=== PATIENT | female | born 1970 | race Caucasian/White ===

== ENCOUNTER 2016-07-17 18:55 | Emergency (ER) | payer OTHER ==
--- NOTE | 2016-07-17 19:52 | ED ORDER SUMMARY ---
..... Patient: ADI RICO OrderSheet [facility] VisitID: [id number] [address] [place] [address] 46y, F Registration Date/Time: 07/17/2016 ORDER SHEET Weight: 81.6 kg (stated) Allergies: Augmentin, Codeine, Compazine, Darvocet, Inapsine, Phenergan, Reglan, Toradol, Tramadol, Vistril, Zofran GENERAL ORDERS: POC Glucose (19:32 07/17/2016 Lili Cerna) (19:43 TLewis R.N.) MEDICATION ORDERS: Ativan PO 1 mg (HIGH ALERT MEDICATION, NOW) (19:31 07/17/2016 Lili Cerna) (19:51 TLewis R.N.) IV FLUIDS: ORDER SHEET NOTES: [Electronically signed by Armani Martínez Dr. (20:04 07/17/2016)] [Electronically signed by Dang Carpenter (20:14 07/17/2016)] [Electronically locked/signed by Dang Carpenter (20:14 07/17/2016)]
--- NOTE | 2016-07-17 19:52 | ED NURSING NOTES ---
Clinical Report - Nurses [facility] [address] [place] [address] 07/17/2016 18:56 Patient: ADI RICO TRIAGE Triage time 19:00 Jul 17 2016. Acuity: LEVEL 4. Chief Complaint: MIGRAINE HEADACHE. 19:06 07/17/16. Alert. No acute distress. SEPSIS SCREEN: Sepsis Screen. Negative (no infection suspected/documented). ROSE COMA SCORE: [place] Coma Scale: 15- eyes open spontaneously (4); best verbal response- oriented x 4 (5); best motor response- obeys commands (6). --19:06 Dang Carpenter 19:00 07/17/16. BP: 146/91. HR: 108. RR: 18 (regular and unlabored). O2 saturation: 98%. Temp: 98.6 F (oral). Pain level now: 03/14. --19:06 Dang Carpenter. Weight: 81.6 kg stated. Height/Length: 66 inches Per Patient. BMI: 29. --19:05 Dang Carpenter. Medications Ativan Oral 1 mg, 4x a day (PRN migraines). --19:02 Dang Carpenter Docusate Sodium Oral 240 mg, daily (2 bottles from 11-18-15; 12-17-15). --19:02 Dang Carpenter Insulin Regular Human Injection sliding scale 2x/day. Lantus Subcutaneous 20 units , at bedtime. Losartan Potassium Oral 25 mg, daily (2 bottles 11-18-15; 12-17-15). Methadone HCl Oral 125mg daily taken at 0900 . Senna Laxative Oral 1-2 tabs, daily (2 bottles 11-18-15; 12-17-15). Simvastatin Oral 40 mg, daily (1 bottle dated 11-19-15). Vit d 1000 units, daily (3 bottles 11-18; 12-17-15; 01-17-16). --19:02 Dang Carpenter. Medication/allergy information source: the patient. --19:06 Dang Carpenter. Allergies Augmentin. Codeine. Compazine. --19:02 Dang Carpenter Darvocet. Inapsine. Phenergan. (muscles twitch) Reglan. Toradol. Tramadol. Vistril. --19:02 Dang Carpenter Zofran. (headache) --19:02 Dang Carpenter. History Arrived by private vehicle. Historian: patient. Unaccompanied. Primary physician ([facility]). This started About a week. ( Pt having "migraine" with nausea, vomiting, and blurry vision. Gets headaches about every 4 months, today is the same, but it's just not going away. Started dialysis about 3 months ago.). She has had weakness. No nausea, vomiting, numbness, fever or sinus pain. 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 PAST MEDICAL HX: Diabetes mellitus. Hypertension. Headaches. No history of head injury. Immunizations not up to date. SOCIAL HX: Former smoker, end date 06/2016. History of heavy drug use: marijuana. No alcohol use. No recent travel. No known contact with a sick individual. FALL RISK ASSESSMENT: Fall risk assessment completed. No fall risk identified. NUTRITIONAL RISK ASSESSMENT: The nutritional risk assessment revealed no deficiencies. FUNCTIONAL ASSESSMENT: Functional assessment: no impairments noted. LEARNING NEEDS ASSESSMENT: The learning needs assessment revealed no barriers. SKIN INTEGRITY ASSESSMENT: Skin integrity risk assessment completed. No skin integrity risk identified. --19:06 Dang Carpenter. PROBLEMS: Kidney failure. Substance Abuse. Hyperglycemia. Hyperkalemia. Renal Failure. Hematuria. Tension-Type Headache. Chronic Headache. Abscess. Renal Insufficiency. Cellulitis. Atypical Chest Pain. Gastroparesis. Contusion. Fall. Tetanus Status. Headache. Migraine Headache. Gastroesophageal Reflux. Narcotic Withdrawal. LNMP - Last Normal Menstrual Period. UTI - Urinary Tract Infection. Vomiting. Abdominal Pain. Diabetes Mellitus. Hypertension. --19:03 Dang Carpenter Narcotic Withdrawal [RuleOut]. --19:03 Dang Carpenter. ADDITIONAL SURGERIES: Ankle. Incision and drainage of abscess. Oophorectomy. Shoulder Surgery. Sinus Surgery. --19:03 Dang Carpenter. Assessment The patient states feels the same. --19:06 Dang Carpenter. Interventions ID band on patient. --19:06 Dang Carpenter. PHYSICAL ASSESSMENT 19:07/17/16. Ambulatory to room. GENERAL / NEURO / PSYCH: Alert. Oriented X 4. Appears in no acute distress. Speech within normal limits. HEENT: No facial asymmetry noted. Pupils equal, round and reactive to light. RESPIRATORY: Respirations not labored. CVS: Capillary refill less than 2 seconds. GI / : Abdomen soft and nontender. SKIN: Skin is warm and dry. --19: Dang Carpenter 19:07/17/16. HEENT: Photophobia present. --19: Dang Carpenter. NURSING PROGRESS NOTES :07/17/16. The plan of care for this patient has been created. Head of bed elevated. Reassurance given. Lights dimmed. Two patient identifiers checked. Call light placed in reach. Bed placed in lowest position. Brakes of bed on. Patient ready for evaluation- chart flagged and ED physician and PA notified. --19:06 Dang Carpenter Finger stick glucose: greater than 500; ordered; performed by nurse; result shown to the ED physician. --19:44 Grey Sandy R.N. ( Pt refused the lorazepam 1mg. Pt stated she wanted it in a prescription. She drove herself here and does not want to take it now. Pt was told about the possibility of needing an IV, fluids and DKA. Pt stated she does not care, "I will go home and fix myself." Pt was very tearful and upset. MD was notified about the situation and the blood sugar over 500.). --19:49 Grey Sandy R.N. 19:50 07/17/2016 Ativan PO 1 mg (HIGH ALERT MEDICATION, NOW) was refused by patient because of concern over the side effects and pt does not want it because she drove herself here. told. Grey Sandy --19:51 Grey Sandy R.N. DISPOSITION / DISCHARGE 20:14 07/17/16. Condition at departure: unchanged. The patient eloped and the patient left prior to discharge education being provided. The patient left the Emergency Department without completion of treatment; patient was unaccompanied. The patient appears to be alert, oriented x4, coherent and in no acute distress. Unable to locate patient. The patient stated is leaving the ED due to personal reasons. Notified the ED physician and charge nurse of patient departure. Patient left without signing form prior to leaving. She left the Emergency Department ambulatory and via private vehicle. --20:14 Dang Carpenter 20:12 07/17/16. BP: unable to obtain due to patient not present. HR: unable to obtain due to patient not present. RR: unable to obtain due to patient not present. O2 saturation: unable to obtain due to patient not present. Temp: unable to obtain due to patient not present. Pain level now unable to obtain due to patient not present. --20:14 Dang Carpenter 20:14 07/17/16. Departure time: 20:14 Jul 17 2016. --20:14 Dang Carpenter. Locked/Released at 07/17/2016 20:14 by Dang Carpenter,
--- NOTE | 2016-07-17 19:52 | ED ORDER SUMMARY ---
..... Patient: ADI RICO OrderSheet [facility] VisitID: [id number] [address] [place] [address] 46y, F Registration Date/Time: 07/17/2016 ORDER SHEET Weight: 81.6 kg (stated) Allergies: Augmentin, Codeine, Compazine, Darvocet, Inapsine, Phenergan, Reglan, Toradol, Tramadol, Vistril, Zofran GENERAL ORDERS: POC Glucose (19:32 07/17/2016 Lili Cerna) (19:43 TLewis R.N.) MEDICATION ORDERS: Ativan PO 1 mg (HIGH ALERT MEDICATION, NOW) (19:31 07/17/2016 Lili Cerna) (19:51 TLewis R.N.) IV FLUIDS: ORDER SHEET NOTES: [Electronically signed by Armani Martínez Dr. (20:04 07/17/2016)] [Electronically signed by Dang Carpenter (20:14 07/17/2016)] [Electronically locked/signed by Dang Carpenter (20:14 07/17/2016)]
--- NOTE | 2016-07-17 20:15 | ED MED RECONCILIATION SUMMARY ---
Patient: ADI RICO Medication Reconciliation Report [facility] VisitID: [id number] [address] [address] 46y, F Registration Date/Time: 07/17/2016 Weight: 81.6 kg Height/Length: 66 in. BMI: 29.0 ALLERGIES: Augmentin, Codeine, Compazine, Darvocet, Inapsine, Phenergan, Reglan, Toradol, Tramadol, Vistril, Zofran The patient's Home Medications are listed below: THE FOLLOWING MEDICATIONS NEED TO BE RECONCILED: Ativan Oral 1 mg, 4x a day, PRN migraines Docusate Sodium Oral 240 mg, daily, 2 bottles from 11-18-15; 12-17-15 Insulin Regular Human Injection sliding scale 2x/day Lantus Subcutaneous 20 units , at bedtime Losartan Potassium Oral 25 mg, daily, 2 bottles 11-18-15; 12-17-15 Methadone HCl Oral 125mg daily taken at 0900 Senna Laxative Oral 1-2 tabs, daily, 2 bottles 11-18-15; 12-17-15 Simvastatin Oral 40 mg, daily, 1 bottle dated 11-19-15 Vit d 1000 units, daily, 3 bottles 11-18; 12-17-15; 01-17-16 The source(s) of the original Home Medication information: patient The following Medications were given to the patient in the Emergency Department: None. The following Medications were prescribed to the patient: None.
--- NOTE | 2016-07-17 20:15 | ED MAR SUMMARY ---
..... Medication Administration Record [facility] [address] [place], [place] [id number] Patient: ADI RICO Visit ID: [id number] 46y, F Weight: 81.6 kg Height/Length: 66 in BMI: 29 ALLERGIES: Zofran, Augmentin, Codeine, Compazine, Darvocet, Inapsine, Phenergan, Reglan, Toradol, Tramadol, Vistril
--- NOTE | 2016-07-17 20:15 | ED MAR SUMMARY ---
..... Medication Administration Record [facility] [address] [place], [place] [id number] Patient: ADI RICO Visit ID: [id number] 46y, F Weight: 81.6 kg Height/Length: 66 in BMI: 29 ALLERGIES: Zofran, Augmentin, Codeine, Compazine, Darvocet, Inapsine, Phenergan, Reglan, Toradol, Tramadol, Vistril
--- NOTE | 2016-07-17 20:15 | ED MED RECONCILIATION SUMMARY ---
Patient: ADI RICO Medication Reconciliation Report [facility] VisitID: [id number] [address] [place] [address] 46y, F Registration Date/Time: 07/17/2016 Weight: 81.6 kg Height/Length: 66 in. BMI: 29.0 ALLERGIES: Augmentin, Codeine, Compazine, Darvocet, Inapsine, Phenergan, Reglan, Toradol, Tramadol, Vistril, Zofran The patient's Home Medications are listed below: THE FOLLOWING MEDICATIONS NEED TO BE RECONCILED: Ativan Oral 1 mg, 4x a day, PRN migraines Docusate Sodium Oral 240 mg, daily, 2 bottles from 11-18-15; 12-17-15 Insulin Regular Human Injection sliding scale 2x/day Lantus Subcutaneous 20 units , at bedtime Losartan Potassium Oral 25 mg, daily, 2 bottles 11-18-15; 12-17-15 Methadone HCl Oral 125mg daily taken at 0900 Senna Laxative Oral 1-2 tabs, daily, 2 bottles 11-18-15; 12-17-15 Simvastatin Oral 40 mg, daily, 1 bottle dated 11-19-15 Vit d 1000 units, daily, 3 bottles 11-18; 12-17-15; 01-17-16 The source(s) of the original Home Medication information: patient The following Medications were given to the patient in the Emergency Department: None. The following Medications were prescribed to the patient: None.
--- NOTE | 2016-07-17 20:15 | ED DISCHARGE INSTRUCTIONS ---
Patient: ADI RICO General Instructions [facility] VisitID: [id number] [place] [address] 46y, F Registration Date/Time: 07/17/2016 Acute headache. Severe hyperglycemia (Acute). ADDITIONAL INFORMATION Headache [Unspecified] The cause of your headache today is not clear, but it does not appear to be the sign of any serious illness. Under stress, some people tense the muscles of their shoulder, neck and scalp without knowing it. If this condition lasts long enough, a TENSION HEADACHE can occur. A MIGRAINE HEADACHE is caused by changes in blood flow to the brain. A migraine attack may be triggered by emotional stress, hormone changes during the menstrual cycle, oral contraceptives, alcohol use, certain foods containing tyramine, eye strain, weather changes, missing meals, lack of sleep or oversleeping. Other causes of headache include a viral illness with high fever, head injury with concussion, sinus, ear or throat infection, dental pain and TMJ (jaw joint) pain. More serious but less common causes of headache include stroke, brain hemorrhage, brain tumor, meningitis and encephalitis. Home Care: If you were given pain medicine for this headache, do not drive yourself home. Arrange for a ride, instead. When you get home, try to sleep. You should feel much better when you wake up. Apply heat to the back of your neck to relieve neck muscle spasm. Migraine headaches may respond best to an ice pack on the forehead or at the base of the skull. If you are having nausea or vomiting, follow a light diet until your headache is relieved. If you have a migraine type headache, use sunglasses when in the daylight or around bright indoor lighting until symptoms improve. Bright glaring light can worsen this kind of headache. Follow Up with your doctor if the headache is not better within the next 24 hours. If you have frequent headaches you should discuss a treatment plan with your primary care doctor. By being aware of the earliest signs of headache, and starting treatment right away, you may be able to stop the pain yourself. Get Prompt Medical Attention if any of the following occur: Worsening of your head pain or no improvement within 24 hours Repeated vomiting (unable to keep liquids down) Fever of 100.4F (38C) or higher, or as directed by your healthcare provider Stiff neck Extreme drowsiness, confusion or fainting Dizziness, vertigo (dizziness with spinning sensation) Weakness of an arm or leg or one side of the face Difficulty with speech or vision Diabetes with High Blood Sugar You have been treated for high blood sugar (hyperglycemia). This may be becauseof an infection or other illness;eating too many sweets or starches ; not taking enough insulin. Home care High blood sugar may cause symptoms that you can learn to recognize, such as these: If you feel like your blood sugar may be too high, measure it using a blood or urine test. If it is above your usual range, use the "sliding scale"rRegular insulin dose your doctor gave you to correct this. If no "sliding scale" orders were given, contact your doctor for further advice. If your blood sugar is over 300, and you can't reach your doctor, go to the hospital emergency room. Monitor and write down your blood sugars - and insulin dose, if you take insulin - atleast twice a day. Do this before breakfast and before dinner. Do this for the next 3 to 5 days. Follow-up care Follow up with your health care provderduring the next week to review your blood sugar records. You will find out if you need to adjust your dose of insulin or other medicine for blood sugar. When to seek medical care Get prompt medical attention if either of these occur: High blood sugar.Symptoms are frequent urination, feeling dizzy, thirst, headache, nausea or vomiting, abdominal pain, and drowsiness or loss of consciousness. Low blood sugar. Symptoms are fatigue, headache, shakes, excess sweating, hunger, anxiety, reduced vision, drowsiness, weakness, confusion or loss of consciousness, and seizure. You have been given the following additional information: Headache, Unspecified Diabetic Hyperglycemia (Electronically signed by Armani Martínez Dr. 07/17/2016 20:04)
--- NOTE | 2016-07-17 20:15 | ED CLINICAL REPORT ---
Clinical Report - Physicians/Mid Levels [facility] [address] [place] [address] 07/17/2016 18:56 Patient: ADI RICO Arrived- By private vehicle. Historian- patient. HISTORY OF PRESENT ILLNESS Is still present (worsened last night). Chief Complaint: HEADACHE. This started started 4 - 5 days ago. It was gradual in onset and has been constant but is not gone now. Patient was last known well (4 - 5 days ago). Onset during rest. It is described as similar to previous headaches. No neck pain. Not located in the facial region. At its maximum, severity described as severe. When seen in the E.D., severity described as severe. No preceding symptoms, blurred vision, photophobia, numbness or weakness. (reports her blood sugar "crashed" last night and had worsening of her headache. Did not come in. States she ate to get it back up.). Similar symptoms previously: Recent medical care: Not recently seen/assessed. REVIEW OF SYSTEMS No fever. She has had skin rash. All systems otherwise negative, except as recorded above. PAST HISTORY See nurses notes. Medications: Insulin Regular Human Injection sliding scale 2x/day. Lantus Subcutaneous 20 units , at bedtime. Losartan Potassium Oral 25 mg, daily (2 bottles 11-18-15; 12-17-15). Methadone HCl Oral 125mg daily taken at 0900 . Senna Laxative Oral 1-2 tabs, daily (2 bottles 11-18-15; 12-17-15). Simvastatin Oral 40 mg, daily (1 bottle dated 11-19-15). Vit d 1000 units, daily (3 bottles 11-18; 12-17-15; 01-17-16). Docusate Sodium Oral 240 mg, daily (2 bottles from 11-18-15; 12-17-15). Ativan Oral 1 mg, 4x a day (PRN migraines). Allergies: Augmentin. Codeine. Compazine. Darvocet. Inapsine. Phenergan. (muscles twitch) Reglan. Toradol. Tramadol. Vistril. Zofran. (headache). SOCIAL HISTORY Former smoker. History of drug use: marijuana. No alcohol use. Is a local resident. ADDITIONAL NOTES The nursing notes have been reviewed. PHYSICAL EXAM Vital Signs: 07/17/2016 19:00 BP: 146/91. HR: 108. RR: 18. O2 saturation: 98%. Temp: 98.6 F. Pain level now: 10/10. Blood pressure normal. Oxygen saturation normal. Appearance: Alert. No acute distress. Eyes: Pupils equal, round and reactive to light. Eyes normal inspection. (No papilledema. Normal appearing retinal vasculature.). ENT: Ears normal. Nose normal. Pharynx normal. Neck: Normal inspection. Neck supple. No meningeal signs. CVS: Normal heart rate and rhythm. Heart sounds normal. Pulses normal. Respiratory: No respiratory distress. Breath sounds normal. Abdomen: Soft and nontender. No organomegaly. Back: Normal inspection. Skin: Skin warm and dry. Normal skin color. No rash. Normal skin turgor. Extremities: Extremities exhibit normal ROM. No lower extremity edema. Neuro: Oriented X 3. Alert. Mood/affect normal. Speech normal. Cranial nerves normal (as tested). No cerebellar findings. No motor deficit. No sensory deficit. Reflexes normal. (normal gait. Negative Kernig's sign. Negative Brudzinski's). PROGRESS AND PROCEDURES Course of Care: the patient is a pleasant 46 old female with past medical history significant for diabetes and chronic kidney disease presented for reaction a headache. Patient has multiple medical allergies admitted difficult for the trailer headache be treated here in the emergency department. Patient also first is not full-scale narcotics. I discussion about possible caty emergency department. Would like to help her in regards to this. Patient with history of diabetes. Accu-Chek also be ordered. Ativan also will be Provided for the headache as she "can't take any other medications. " symptoms of her headache and been going for the past several days. Do not reach maximum intensity within 1 hour of onset. Patient with similar headaches in the past. No signs or nuchal rigidity. Negative Kernig's sign. Negative Brudzinski's. Do not the patient has meningitis or subarachnoid hemorrhage. Do not feel lumbar puncture is indicated at this time or further workup for these entities needed. Medications are been provided by the nurse, patient refused Ativan. Patient states that she needs to be able to drive home. Patient reports that she has a child at home. I discussion with patient in regards to her headache. Would like to help her as much as can however the patient reports that she does not want the Ativan right now. Patient reports that she would like a prescription. I discussion with patient in regards to her symptoms here in the emergency department and at this time do not feel comfortable providing patient with a prescription. Had offered patient other alternatives for example obtaining a ride from a third-republican. The patient reports that she is unable to do this and does not elaborate why. I also discussed with the patient in regards to her elevated blood sugar levels here in the hospital and the possibility of her headache being due to her elevated blood sugar. Patient reports that she can self medicate at home and does not want any further treatment or workup. Had a long discussion with patient in regards to what is occurring here in the emergency department and the possible treatments available. Patient asked about getting medications to go home with. Unfortunately because a 24-hour pharmacy has opened up recently, we are unable to dispense medications for home use from the emergency department. Despite this, the patient was not agreeable to the proposed treatment. Patient stated "I will just go find heroin. "Had a long discussion about narcotics and how the emergency department was not a substitute for a drug dealer. Patient told that she is welcome to return at any point in time for treatment of her elevated blood sugar and her headache. Patient understands the risks and benefits of leaving including permanent disability and . Patient is alert and oriented. the patient is go oriented and linear thought process. Patient is able to make medical decisions for herself. I'm unable to force the patient to stay here in the hospital against her will. Patient expressed understanding of the risks and is not a danger to self or others. Patient without any hallucinations or delusions. Discussed the patient workup, diagnosis, home care, follow-up, and return precautions. All questions answered. The patient expressed understanding of these instructions and was agreeable to them. CLINICAL IMPRESSION Acute headache. Severe hyperglycemia (Acute). (Electronically signed by Armani Martínez Dr. 07/17/2016 20:04)
== END 2016-07-17 20:12 | disposition home or self-care (01) ==
LOC: ED SRH 18:55
DX: R51 Headache (principal); E11.65 Type 2 diabetes mellitus with hyperglycemia; K21.9 Gastro-esophageal reflux disease without esophagitis; I10 Essential (primary) hypertension; Z79.899 Other long term (current) drug therapy; Z79.4 Long term (current) use of insulin; Z88.8 Allergy status to other drugs, medicaments and biological substances; Z88.5 Allergy status to narcotic agent; Z87.891 Personal history of nicotine dependence
CPT/HCPCS: 90098

== ENCOUNTER 2016-08-05 02:43 | Emergency (ER) | payer OTHER ==
--- NOTE | 2016-08-05 06:29 | DIAGNOSTIC IMAGING REPORT ---
PROCEDURE: XR CHEST 1 VIEW INDICATION: SHORTNESS OF BREATH, initial encounter TECHNIQUE: Portable AP view 03:45 a.m. COMPARISON: Chest x-ray 07/10/2013 FINDINGS: Minor right basilar infiltrate. Large bore right IJ central line in satisfactory position. Previously noted right PICC line has been removed. Heart and mediastinum are normal. Thorax is normal. IMPRESSION: 1. Minor right basilar infiltrate which may represent pneumonia or atelectasis.
--- NOTE | 2016-08-05 08:05 | ED ORDER SUMMARY ---
..... Patient: ADI RICO OrderSheet [facility] VisitID: [id number] [place] [address] 46y, F Registration Date/Time: 08/05/2016 ORDER SHEET Weight: 75 kg (stated) Allergies: Augmentin, Codeine, Compazine, Darvocet, Inapsine, Phenergan, Reglan, Toradol, Tramadol, Vistril, Zofran GENERAL ORDERS: Knitting Inspector (Continuous) (03:28 08/05/2016 Ashley DALAL) (Ack 3:36 ALawrence ER Tech1) (3:36 ALawrence ER Tech1) BNP Urgent (:08/05/2016 Ashley DALAL) (3:35 ALawrence ER Tech1) Cardiac Panel Stat (:08/05/2016 Ashley DALAL) (3:35 ALawrence ER Tech1) Pulse oximeter (:28 08/05/2016 Ashley DALAL) (Ack 3:36 ALawrence ER Tech1) (3:36 ALawrence ER Tech1) EKG - ER Stat (:28 08/05/2016 Ashley DALAL) (Ack 3:36 ALawrence ER Tech1) (3:36 ALawrence ER Tech1) Chest 1V Urgent (03:40 08/05/2016 Ashley DALAL) (Ack 3:41 ALawrence ER Tech1) (3:52 Bakari) MEDICATION ORDERS: IV FLUIDS: IV Saline Lock (:08/05/2016 Ashley DALAL) (3:37 Guicho R.NTre) ORDER SHEET NOTES: [Electronically signed by Daiana Burrows R.N. (09:32 08/05/2016)] [Electronically signed by Wilson Dang MD (23:24 08/07/2016)] [Electronically locked/signed by Daiana Burrows R.N. (09:32 08/05/2016)]
--- NOTE | 2016-08-05 08:05 | ED NURSING NOTES ---
Clinical Report - Nurses [facility] [address] [place] [address] 08/05/2016 2:46 Patient: ADI RICO TRIAGE Triage time 0249. Acuity: LEVEL 3. Chief Complaint: SHORTNESS OF BREATH and DIFFICULTY BREATHING. --02:56 Caio Santiago R.N. 02:49 08/05/16. BP: 145/92. HR: 111. RR: 22. O2 saturation: 96%. Temp: 98 F. --02:56 Caio Santiago R.N. Weight: 75 kg stated. Height/Length: 66 inches Per Patient. BMI: 26.7. --02:53 Caio Santiago R.N. Medications Ativan Oral 1 mg, 4x a day (PRN migraines). Docusate Sodium Oral 240 mg, daily (2 bottles from 11-18-15; 12-17-15). Insulin Regular Human Injection sliding scale 2x/day. Lantus Subcutaneous 20 units , at bedtime. Losartan Potassium Oral 25 mg, daily (2 bottles 11-18-15; 12-17-15). Methadone HCl Oral 125mg daily taken at 0900 . Senna Laxative Oral 1-2 tabs, daily (2 bottles 11-18-15; 12-17-15). Simvastatin Oral 40 mg, daily (1 bottle dated 11-19-15). Vit d 1000 units, daily (3 bottles 11-18; 12-17-15; 01-17-16). --02:51 Caio Santiago R.N. ALPRAZolam Oral. --02:52 Caio Santiago R.N. Allergies Augmentin. Codeine. Compazine. Darvocet. Inapsine. Phenergan. (muscles twitch) Reglan. Toradol. Tramadol. Vistril. Zofran. (headache) --02:51 Caio Santiago R.N. History Arrived by EMS. Historian: patient. Unaccompanied. This started just prior to arrival. 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 SOCIAL HX: History of heavy drug use: marijuana. No alcohol use. FALL RISK ASSESSMENT: Fall risk assessment completed. No fall risk identified. NUTRITIONAL RISK ASSESSMENT: The nutritional risk assessment revealed no deficiencies. FUNCTIONAL ASSESSMENT: Functional assessment: no impairments noted. LEARNING NEEDS ASSESSMENT: The learning needs assessment revealed no barriers. SKIN INTEGRITY ASSESSMENT: Skin integrity risk assessment completed. No skin integrity risk identified. --02:56 Caio Santiago R.N. PAST MEDICAL HX: ( pt has dialysis T,Th,Sat. pt missed th appt r/t feeling sick. pt has vas/cath right chest.). --02:58 Caio Santiago R.N. PROBLEMS: Kidney failure. Substance Abuse. Hyperglycemia. Hyperkalemia. Renal Failure. Hematuria. Tension-Type Headache. Chronic Headache. Abscess. Renal Insufficiency. Cellulitis. Atypical Chest Pain. Gastroparesis. Contusion. Fall. Tetanus Status. Headache. Migraine Headache. Immunizations. Gastroesophageal Reflux. Narcotic Withdrawal. LNMP - Last Normal Menstrual Period. UTI - Urinary Tract Infection. Vomiting. Abdominal Pain. Diabetes Mellitus. Hypertension. --02:51 Caio Santiago R.N. Narcotic Withdrawal [RuleOut]. --02:51 Caio Santiago R.N. ADDITIONAL SURGERIES: Ankle. Incision and drainage of abscess. Oophorectomy. Shoulder Surgery. Sinus Surgery. --02:52 Caio Santiago R.N. Interventions ID band on patient. --02:56 Caio Santiago R.N. PHYSICAL ASSESSMENT GENERAL / NEURO / PSYCH: Alert. Oriented X 4. HEENT: Mucous membranes are pink. CVS: Normal sinus rhythm noted. Capillary refill less than 2 seconds. SKIN: Skin is warm and dry. Normal skin turgor. --02:57 Caio Santiago R.N. GENERAL / NEURO / PSYCH: Appears anxious. --02:57 Caio Santiago R.N. RESPIRATORY: Mild respiratory distress. The patient can speak in full sentences. --02:57 Caio Santiago R.N. NURSING PROGRESS NOTES Monitoring of patient in place. Patient gowned. Head of bed elevated. Patient identifiers checked. Call light placed in reach. Bed placed in lowest position. Brakes of bed on. --02:58 Caio Santiago R.N. 03:37 08/05/2016 Site #1 started via IV in the right forearm with an 20g angiocath, with aseptic technique and good blood return; two attempts. Blood drawn. Labeled in the presence of the patient and sent to the lab. Saline lock flushed with saline. --03:37 Caio Santiago R.N. EKG time: (03:47 03:47 Aug 05 2016). EKG was performed by a tech and shown to the ED physician. --03:48 Riki Escobar 07:24 08/05/16. Care transferred and report received (Caio). ( Patient doing well, requests to go home.). --07:24 Elham Sanchez R.N. 07:22 08/05/16. BP: 129/81. HR: 92. RR: 18. O2 saturation: 97% on room air. Temp: 98.2 F. Pain level now: 0/10. --07:24 Elham Sanchez R.N. DISPOSITION / DISCHARGE Departure time: 823. Condition at departure: improved. ( Pt aware she has a dialysis appointment at 4:30pm). No learning barriers present. Discharge instructions provided and reviewed with the patient and family. Treatments reviewed. Reviewed referral to a dye mixer and family practice for followup. Verbalized understanding. Written instructions provided. The patient was discharged home. She left the Emergency Department ambulatory and via private vehicle. Family member driving. --09:31 Daiana Burrows R.N. 09:27 08/05/16. BP: 156/93. HR: 97. RR: 20. O2 saturation: 98%. Temp: 98 F. Pain level now: 0/10. --09:31 Daiana Burrows R.N. Locked/Released at 08/05/2016 9:32 by Daiana Burrows R.N.
--- NOTE | 2016-08-05 08:05 | ED NURSING NOTES ---
Clinical Report - Nurses [facility] [address] [place] [address] 08/05/2016 2:46 Patient: ADI RICO TRIAGE Triage time 0249. Acuity: LEVEL 3. Chief Complaint: SHORTNESS OF BREATH and DIFFICULTY BREATHING. --02:56 Caio Santiago R.N. 02:49 08/05/16. BP: 145/92. HR: 111. RR: 22. O2 saturation: 96%. Temp: 98 F. --02:56 Caio Santiago R.N. Weight: 75 kg stated. Height/Length: 66 inches Per Patient. BMI: 26.7. --02:53 Caio Santiago R.N. Medications Ativan Oral 1 mg, 4x a day (PRN migraines). Docusate Sodium Oral 240 mg, daily (2 bottles from 11-18-15; 12-17-15). Insulin Regular Human Injection sliding scale 2x/day. Lantus Subcutaneous 20 units , at bedtime. Losartan Potassium Oral 25 mg, daily (2 bottles 11-18-15; 12-17-15). Methadone HCl Oral 125mg daily taken at 0900 . Senna Laxative Oral 1-2 tabs, daily (2 bottles 11-18-15; 12-17-15). Simvastatin Oral 40 mg, daily (1 bottle dated 11-19-15). Vit d 1000 units, daily (3 bottles 11-18; 12-17-15; 01-17-16). --02:51 Caio Santiago R.N. ALPRAZolam Oral. --02:52 Caio Santiago R.N. Allergies Augmentin. Codeine. Compazine. Darvocet. Inapsine. Phenergan. (muscles twitch) Reglan. Toradol. Tramadol. Vistril. Zofran. (headache) --02:51 Caio Santiago R.N. History Arrived by EMS. Historian: patient. Unaccompanied. This started just prior to arrival. 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 SOCIAL HX: History of heavy drug use: marijuana. No alcohol use. FALL RISK ASSESSMENT: Fall risk assessment completed. No fall risk identified. NUTRITIONAL RISK ASSESSMENT: The nutritional risk assessment revealed no deficiencies. FUNCTIONAL ASSESSMENT: Functional assessment: no impairments noted. LEARNING NEEDS ASSESSMENT: The learning needs assessment revealed no barriers. SKIN INTEGRITY ASSESSMENT: Skin integrity risk assessment completed. No skin integrity risk identified. --02:56 Caio Santiago R.N. PAST MEDICAL HX: ( pt has dialysis T,Th,Sat. pt missed th appt r/t feeling sick. pt has vas/cath right chest.). --02:58 Caio Santiago R.N. PROBLEMS: Kidney failure. Substance Abuse. Hyperglycemia. Hyperkalemia. Renal Failure. Hematuria. Tension-Type Headache. Chronic Headache. Abscess. Renal Insufficiency. Cellulitis. Atypical Chest Pain. Gastroparesis. Contusion. Fall. Tetanus Status. Headache. Migraine Headache. Immunizations. Gastroesophageal Reflux. Narcotic Withdrawal. LNMP - Last Normal Menstrual Period. UTI - Urinary Tract Infection. Vomiting. Abdominal Pain. Diabetes Mellitus. Hypertension. --02:51 Caio Santiago R.N. Narcotic Withdrawal [RuleOut]. --02:51 Caio Santiago R.N. ADDITIONAL SURGERIES: Ankle. Incision and drainage of abscess. Oophorectomy. Shoulder Surgery. Sinus Surgery. --02:52 Caio Santiago R.N. Interventions ID band on patient. --02:56 Caio Santiago R.N. PHYSICAL ASSESSMENT GENERAL / NEURO / PSYCH: Alert. Oriented X 4. HEENT: Mucous membranes are pink. CVS: Normal sinus rhythm noted. Capillary refill less than 2 seconds. SKIN: Skin is warm and dry. Normal skin turgor. --02:57 Caio Santiago R.N. GENERAL / NEURO / PSYCH: Appears anxious. --02:57 Caio Santiago R.N. RESPIRATORY: Mild respiratory distress. The patient can speak in full sentences. --02:57 Caio Santiago R.N. NURSING PROGRESS NOTES Monitoring of patient in place. Patient gowned. Head of bed elevated. Patient identifiers checked. Call light placed in reach. Bed placed in lowest position. Brakes of bed on. --02:58 Caio Santiago R.N. 03:37 08/05/2016 Site #1 started via IV in the right forearm with an 20g angiocath, with aseptic technique and good blood return; two attempts. Blood drawn. Labeled in the presence of the patient and sent to the lab. Saline lock flushed with saline. --03:37 Caio Santiago R.N. EKG time: (03:47 03:47 Aug 05 2016). EKG was performed by a tech and shown to the ED physician. --03:48 Riki Escobar 07:24 08/05/16. Care transferred and report received (Caio). ( Patient doing well, requests to go home.). --07:24 Elham Sanchez R.N. 07:22 08/05/16. BP: 129/81. HR: 92. RR: 18. O2 saturation: 97% on room air. Temp: 98.2 F. Pain level now: 0/10. --07:24 Elham Sanchez R.N. DISPOSITION / DISCHARGE Departure time: 823. Condition at departure: improved. ( Pt aware she has a dialysis appointment at 4:30pm). No learning barriers present. Discharge instructions provided and reviewed with the patient and family. Treatments reviewed. Reviewed referral to a clinical data management director and family practice for followup. Verbalized understanding. Written instructions provided. The patient was discharged home. She left the Emergency Department ambulatory and via private vehicle. Family member driving. --09:31 Daiana Burrows R.N. 09:27 08/05/16. BP: 156/93. HR: 97. RR: 20. O2 saturation: 98%. Temp: 98 F. Pain level now: 0/10. --09:31 Daiana Burrows R.N. Locked/Released at 08/05/2016 9:32 by Daiana Burrows R.N.
--- NOTE | 2016-08-05 08:05 | ED CLINICAL REPORT ---
Clinical Report - Physicians/Mid Levels [facility] [address] [place] [address] 08/05/2016 2:46 [id number] Time Seen: 03:21 Aug 05 2016. Arrived- By private vehicle. Historian- patient. CPT: ER phys charges level 4 (#[id number]). HISTORY OF PRESENT ILLNESS Chief Complaint: DYSPNEA. (( pt has dialysis T,Th,Sat. pt missed th appt r/t feeling sick. pt has vas/cath right chest.).). Is still present. The dyspnea is described as moderate. (Nothing). No cough, sputum production, fever, sweating episodes or wheezing. No chills, chest pain or discomfort, calf pain or foot swelling. She has had dyspnea on exertion and anxiety. Similar symptoms previously: Diagnosis: (Renal failure). Recent medical care: Not recently seen/assessed. REVIEW OF SYSTEMS No sore throat, nasal discharge, sinus drainage, nausea or vomiting. No abdominal pain, diarrhea, black stools, fainting episodes or difficulty with urination. No skin rash or enlarged lymph nodes. All systems otherwise negative, except as recorded above. PAST HISTORY Substance Abuse. Hyperglycemia. Hyperkalemia. Renal Failure. Hematuria. Tension-Type Headache. Abscess. Cellulitis. Atypical Chest Pain. Gastroparesis. Contusion. Fall. Migraine Headache. Immunizations. Gastroesophageal Reflux. Narcotic Withdrawal. LNMP - Last Normal Menstrual Period. UTI - Urinary Tract Infection. Vomiting. Abdominal Pain. Diabetes Mellitus. Hypertension. ADDITIONAL SURGERIES: Ankle. Incision and drainage of abscess. Oophorectomy. Shoulder Surgery. Sinus Surgery. SOCIAL HISTORY History of heavy drug use: marijuana. ADDITIONAL NOTES The nursing notes have been reviewed. PHYSICAL EXAM Vital Signs: 08/05/2016 02:49 BP: 145/92. HR: 111. RR: 22. O2 saturation: 96%. Temp: 98 F. Appearance: Alert. Anxious. Patient in moderate distress. Eyes: Eyes normal inspection. ENT: Pharynx normal. Neck: Normal inspection. No jugular venous distention. Neck supple. CVS: Normal heart rate and rhythm. Heart sounds normal. Pulses normal. Respiratory: No respiratory distress. Breath sounds normal. No wheezes or rales. Abdomen: Soft and nontender. Back: Normal inspection. Skin: Skin warm. Normal skin color. No rash. Extremities: Extremities exhibit normal ROM. No calf tenderness. No lower extremity edema. Neuro: Oriented X 3. No motor deficit. No sensory deficit. Reflexes normal. LABS, X-RAYS, AND EKG EKG: Normal P waves. Normal MADELYN. Poor R wave progression. Normal axis. Normal ST and T waves. Prior EKG unavailable. The study has been interpreted contemporaneously. The study has been independently viewed by me. The EKG appears to be a good tracing. Chest X-ray: Vascular congestion present. No cardiomegaly, CHF or pulmonary edema. Views: AP (portable). Technique: good. The X-rays were independently viewed by me and interpreted contemporaneously by me. Laboratory Tests: CBC w Diff: (TO: 08/05/2016 03:18) ( [facility] [place]:35[place] Final results Test Result Flag Units (Reference) WHITE BLOOD COUNT 12.5 H K/uL (4.5-11.5) RED BLOOD COUNT 3.71 L M/uL (4.00-5.20) HEMOGLOBIN 11.4 L gm/dL (12.0-16.0) HEMATOCRIT 34.7 L % (36.0-46.0) MEAN CELL VOLUME 94 fL (80-100) MEAN CORPUSCULAR HGB 31 pg (26-34) MEAN CORPUSCULAR HGB CONC 33 g/dL (31-37) RED CELL DISTRIBUTION WIDTH 17.2 H % (11.6-14.8) PLATELET COUNT 317 K/uL (150-400) NEUTROPHIL % 67.5 % (50-75) LYMPH % 20.8 L % (25-40) MONO % 4.6 % (3-14) EOSINOPHIL % 6.7 H % (0-4) BASOPHIL % 0.4 % (0-2) BNP: (TO: 08/05/2016 03:18) ( [facility] [place]/05[place] 04:03) Final results Test Result Flag Units (Reference) B-TYPE NATRIURETIC PEPTIDE 657 H pg/ml (5-100) CHEM 13 PANEL: (TO: 08/05/2016 03:18) ( [place]cv[place] 08/05/2016 04:17) Final results Test Result Flag Units (Reference) GLUCOSE 306 H mg/dL (70-110) BUN 55 H mg/dL (7-18) CREATININE 10.0 *H mg/dL (0.6-1.3) CRITICAL RESULTS CALLEDCalled to REMIE 08/05/16 0416Were 2 patient identifiers used? YWas the result read back? Y Estimated GFR 4.61 mL/min Estimated GFR- 5.59 mL/min Note: Persistent reduction over 3 months in eGFR<60 mL/min/1.73 m2 defines CKD. Patients with eGFR values>=60 mL/min/1.73 m2 may also have CKD if evidence ofpersistent proteinuria. Additional information may be foundat www.kidney.org. SODIUM 135 L mmol/L (136-145) POTASSIUM 4.8 mmol/L (3.5-5.1) CHLORIDE 97 L mmol/L (98-107) CARBON DIOXIDE 19 L mmol/L (21-32) CALCIUM 9.9 mg/dL (8.5-10.1) TOTAL PROTEIN 8.3 H g/dL (6.4-8.2) ALBUMIN 3.3 g/dL (3.3-5.0) BILIRUBIN, TOTAL 0.6 mg/dL (0.0-1.0) ALKALINE PHOSPHATASE 115 U/L (46-116) AST (SGOT) 31 U/L (15-37) ALT (SGPT) 32 U/L (12-78) MAGNESIUM 2.7 H mg/dL (1.8-2.4) CPK 534 H U/L (24-260) TROPONIN I 0.06 ng/mL (0.00-1.5) TROPONIN REFERENCE RANGE:<0.1 NEGATIVE0.1-1.5 INDETERMINANT>1.5 POSITIVE CK-MB 6.4 H ng/mL (0.5-3.2) %CKMB 1.2 % (0.0-4.0) . PROGRESS AND PROCEDURES Course of Care: 07:53 08/05/16. Pt has remained stable in no distress. Sleeping sitting upright. Will find bed at dialysis center this am and transfer her over there. No other acute problems at this time. 08:05 08/05/16. Talked to dialysis center and the soonest spot is 1630. Pt feels safe sitting up and will be with daughter until the appointment. Patient/family counseled. Disposition: Discharged. Condition: stable and improved. CLINICAL IMPRESSION Anxiety reaction with hyperventilation. Fluid long due to missed dialysis. INSTRUCTIONS (Sit upright until dialysis at 1630 today,.). Warnings: Further evaluation is necessary. Your Current Medications: CONTINUE TAKING THE FOLLOWING MEDICATIONS: ALPRAZolam Oral. Ativan Oral : 1 mg 4x a day, PRN migraines. Docusate Sodium Oral : 240 mg daily, 2 bottles from 11-18-15; 12-17-15. Insulin Regular Human Injection : sliding scale 2x/day. Lantus Subcutaneous : 20 units at bedtime. Losartan Potassium Oral : 25 mg daily, 2 bottles 11-18-15; 12-17-15. Methadone HCl Oral : 125mg daily taken at 0900. Senna Laxative Oral : 1-2 tabs daily, 2 bottles 11-18-15; 12-17-15. Simvastatin Oral : 40 mg daily, 1 bottle dated 11-19-15. Vit d* : 1000 units daily, 3 bottles 11-18; 12-17-15; 01-17-16. Follow-up: Follow up with your doctor in four days. Call for an appointment. Understanding of the discharge instructions verbalized by patient. (Electronically signed by Wilson Dang MD 08/07/2016 23:24)
--- NOTE | 2016-08-05 08:05 | ED ORDER SUMMARY ---
..... Patient: ADI RICO OrderSheet [facility] VisitID: [id number] [place] [address] 46y, F Registration Date/Time: 08/05/2016 ORDER SHEET Weight: 75 kg (stated) Allergies: Augmentin, Codeine, Compazine, Darvocet, Inapsine, Phenergan, Reglan, Toradol, Tramadol, Vistril, Zofran GENERAL ORDERS: Calculus Professor (Continuous) (03:28 08/05/2016 Ashley DALAL) (Ack 3:36 ALawrence ER Tech1) (3:36 ALawrence ER Tech1) BNP Urgent (:08/05/2016 Ashley DALAL) (3:35 ALawrence ER Tech1) Cardiac Panel Stat (:08/05/2016 Ashley DALAL) (3:35 ALawrence ER Tech1) Pulse oximeter (:28 08/05/2016 Ashley DALAL) (Ack 3:36 ALawrence ER Tech1) (3:36 ALawrence ER Tech1) EKG - ER Stat (:28 08/05/2016 Ashley DALAL) (Ack 3:36 ALawrence ER Tech1) (3:36 ALawrence ER Tech1) Chest 1V Urgent (03:40 08/05/2016 Ashley DALAL) (Ack 3:41 ALawrence ER Tech1) (3:52 Bakari) MEDICATION ORDERS: IV FLUIDS: IV Saline Lock (:08/05/2016 Ashley DALAL) (3:37 Guicho R.NTre) ORDER SHEET NOTES: [Electronically signed by Daiana Burrows R.N. (09:32 08/05/2016)] [Electronically signed by Wilson Dang MD (23:24 08/07/2016)] [Electronically locked/signed by Daiana Burrows R.N. (09:32 08/05/2016)]
--- NOTE | 2016-08-07 23:25 | ED MED RECONCILIATION SUMMARY ---
Patient: ADI RICO Medication Reconciliation Report [facility] VisitID: [id number] [place] [address] 46y, F Registration Date/Time: 08/05/2016 Weight: 75 kg Height/Length: 66 in. BMI: 26.7 ALLERGIES: Augmentin, Codeine, Compazine, Darvocet, Inapsine, Phenergan, Reglan, Toradol, Tramadol, Vistril, Zofran The patient's Home Medications are listed below: CONTINUE TAKING THE FOLLOWING MEDICATIONS: ALPRAZolam Oral Ativan Oral 1 mg, 4x a day, PRN migraines Docusate Sodium Oral 240 mg, daily, 2 bottles from 11-18-15; 12-17-15 Insulin Regular Human Injection sliding scale 2x/day Lantus Subcutaneous 20 units , at bedtime Losartan Potassium Oral 25 mg, daily, 2 bottles 11-18-15; 12-17-15 Methadone HCl Oral 125mg daily taken at 0900 Senna Laxative Oral 1-2 tabs, daily, 2 bottles 11-18-15; 12-17-15 Simvastatin Oral 40 mg, daily, 1 bottle dated 11-19-15 Vit d 1000 units, daily, 3 bottles 11-18; 12-17-15; 01-17-16 The source(s) of the original Home Medication information: Not obtained. The following Medications were given to the patient in the Emergency Department: None. The following Medications were prescribed to the patient: None.
--- NOTE | 2016-08-07 23:25 | ED MAR SUMMARY ---
..... Medication Administration Record [facility] [address] [place] [address] Patient: ADI RICO Visit ID: [id number] 46y, F Weight: 75.0 kg Height/Length: 66 in BMI: 26.7 ALLERGIES: Augmentin, Codeine, Compazine, Darvocet, Inapsine, Phenergan, Reglan, Toradol, Tramadol, Vistril, Zofran
--- NOTE | 2016-08-07 23:25 | ED MAR SUMMARY ---
..... Medication Administration Record [facility] [address] [place] [address] Patient: ADI RICO Visit ID: [id number] 46y, F Weight: 75.0 kg Height/Length: 66 in BMI: 26.7 ALLERGIES: Augmentin, Codeine, Compazine, Darvocet, Inapsine, Phenergan, Reglan, Toradol, Tramadol, Vistril, Zofran
--- NOTE | 2016-08-07 23:25 | ED MED RECONCILIATION SUMMARY ---
Patient: ADI RICO Medication Reconciliation Report [facility] VisitID: [id number] [place] [address] 46y, F Registration Date/Time: 08/05/2016 Weight: 75 kg Height/Length: 66 in. BMI: 26.7 ALLERGIES: Augmentin, Codeine, Compazine, Darvocet, Inapsine, Phenergan, Reglan, Toradol, Tramadol, Vistril, Zofran The patient's Home Medications are listed below: CONTINUE TAKING THE FOLLOWING MEDICATIONS: ALPRAZolam Oral Ativan Oral 1 mg, 4x a day, PRN migraines Docusate Sodium Oral 240 mg, daily, 2 bottles from 11-18-15; 12-17-15 Insulin Regular Human Injection sliding scale 2x/day Lantus Subcutaneous 20 units , at bedtime Losartan Potassium Oral 25 mg, daily, 2 bottles 11-18-15; 12-17-15 Methadone HCl Oral 125mg daily taken at 0900 Senna Laxative Oral 1-2 tabs, daily, 2 bottles 11-18-15; 12-17-15 Simvastatin Oral 40 mg, daily, 1 bottle dated 11-19-15 Vit d 1000 units, daily, 3 bottles 11-18; 12-17-15; 01-17-16 The source(s) of the original Home Medication information: Not obtained. The following Medications were given to the patient in the Emergency Department: None. The following Medications were prescribed to the patient: None.
--- NOTE | 2016-08-07 23:25 | ED DISCHARGE INSTRUCTIONS ---
Patient: ADI RICO General Instructions [facility] VisitID: [id number] [place] [address] 46y, F Registration Date/Time: 08/05/2016 Anxiety reaction with hyperventilation. Fluid long due to missed dialysis. INSTRUCTIONS (Sit upright until dialysis at 1630 today,.). Warnings: Further evaluation is necessary. Your Current Medications: CONTINUE TAKING THE FOLLOWING MEDICATIONS: ALPRAZolam Oral. Ativan Oral : 1 mg 4x a day, PRN migraines. Docusate Sodium Oral : 240 mg daily, 2 bottles from 11-18-15; 12-17-15. Insulin Regular Human Injection : sliding scale 2x/day. Lantus Subcutaneous : 20 units at bedtime. Losartan Potassium Oral : 25 mg daily, 2 bottles 11-18-15; 12-17-15. Methadone HCl Oral : 125mg daily taken at 0900. Senna Laxative Oral : 1-2 tabs daily, 2 bottles 11-18-15; 12-17-15. Simvastatin Oral : 40 mg daily, 1 bottle dated 11-19-15. Vit d* : 1000 units daily, 3 bottles 11-18; 12-17-15; 01-17-16. Follow-up: Follow up with your doctor in four days. Call for an appointment. Understanding of the discharge instructions verbalized by patient. ADDITIONAL INFORMATION Stress Reaction Anxiety is the feeling we all get when we think something bad might happen. It is a normal response to stress and usually causes only a mild reaction. When anxiety becomes more severe, emotions may interfere with daily life. In some cases, you may not even be aware of what it is youre anxious about! During an anxiety reaction, you may feel like you are helpless, nervous, depressed or irritable. Your body may show signs of anxiety in many ways. You may experience dry mouth, shakiness, dizziness, weakness, trouble breathing, chest pressure, headache, nausea, diarrhea, tiredness, inability to sleep or sexual problems. Home Care: 1) Try to locate the sources of stress in your life. They may not be obvious! These may include: -- Daily hassles of life which pile up (traffic jams, missed appointments, car troubles, etc.) -- Major life changes, both good (new baby, job promotion) and bad (loss of job, loss of loved one) -- Overload: feeling that you have too many responsibilities and can't take care of all of them at once -- Feeling helpless, feeling that your problems are beyond what youre able to solve 2) Notice how your body reacts to stress. Learn to listen to your body signals. This will help you take action before the stress becomes severe. 3) When you can, do something about the source of your stress. (Avoid hassles, limit the amount of change that happens in your life at one time and take a break when you feel overloaded). 4) Unfortunately, many stressful situations cannot be avoided. It is necessary to learn HOW TO MANAGE STRESS better. There are many proven methods that will reduce your anxiety. These include simple things like exercise, good nutrition and adequate rest. Also, there are certain techniques that are helpful: relaxation and breathing exercises, visualization, biofeedback and meditation. For more information about this, consult your doctor or go to a local bookstore and review the many books and tapes available on this subject. Follow Up If you feel that your anxiety is not responding to self-help measures, contact your doctor or make an appointment with a counselor. Get Prompt Medical Attention if any of the following occur: -- Your symptoms get worse -- Chest pain or trouble breathing -- Severe headache not relieved by rest and mild pain reliever -- Rapid or irregular heartbeat, fainting Panic Attack A panic attack is an extreme fear reaction that comes on for no apparent reason. Symptoms may include pounding or racing heartbeat, shortness of breath, dizziness, weakness and sweating. There is usually a fear that something terrible will happen or that you may . The attack may last a few minutes up to a few hours. Between attacks things will seem quite normal. This condition has a psychological cause and can be treated with the help of a therapist or psychiatrist. Medication is often used and can be very helpful for this problem. Home Care: Try to identify the sources of stress in your life. It may not be obvious! These may include: Daily hassles of life which pile up (traffic jams, missed appointments, car troubles, etc.). Major life changes, both good (new baby, job promotion) and bad (loss of job, loss of loved one). Overload: feeling that you have too many responsibilities and can't take care of everything at once. Helplessness: feeling like your problems are too much for you to handle. Notice how your body reacts to stress. Learn to listen to your body signals so that you can take action before the stress becomes severe. When possible, AVOID or REDUCE THE CAUSE OF STRESS. Avoid hassles, limit the amount of change that is happening in your life at one time or take a break when you feel overloaded. Unfortunately, many stressful situations cannot be avoided. Therefore, it is necessary to LEARN HOW TO MANAGE STRESS better. There are many proven methods that work and will reduce your anxiety. These include simple things like exercise, good nutrition and adequate rest. Also, there are certain techniques that are helpful: relaxation and breathing exercises, visualization, biofeedback, meditation or simply taking some time-out to clear your mind. For more information about this, consult your doctor or go to a local bookstore and review the many books and tapes available on this subject. Follow Up with your doctor or a therapist as advised. Get Prompt Medical Attention if any of the following occur: Worsening of your symptoms to the point of feeling [id number] A change in the type of pain: if it feels different, becomes more severe, lasts longer, or begins to spread into your shoulder, arm, neck, jaw or back Shortness of breath or increased pain with breathing Increasing feeling of weakness or dizziness Fainting Cough with dark colored sputum (phlegm) or blood Fever of 100.4F (38C) or higher, or as directed by your healthcare provider Swelling, pain or redness in one leg You have been given the following additional information: Anxiety Reaction Panic Attack (Electronically signed by Wilson Dang MD 08/07/2016 23:24)
== END 2016-08-05 08:24 | disposition home or self-care (01) ==
LOC: ED SRH 02:43
DX: E86.9 Volume depletion, unspecified (principal); Z99.2 Dependence on renal dialysis; F41.1 Generalized anxiety disorder; R06.4 Hyperventilation; N17.9 Acute kidney failure, unspecified; I12.9 Hypertensive chronic kidney disease with stage 1 through stage 4 chronic kidney disease, or unspecified chronic kidney disease; E11.29 Type 2 diabetes mellitus with other diabetic kidney complication; K21.9 Gastro-esophageal reflux disease without esophagitis; Z79.4 Long term (current) use of insulin; Z88.1 Allergy status to other antibiotic agents; Z88.5 Allergy status to narcotic agent
CPT/HCPCS: 90100; 90616; 90617; 91320; 92610; 92720; 95059

== ENCOUNTER 2016-09-24 12:19 | Emergency (ER) | payer OTHER ==
--- NOTE | 2016-09-24 13:27 | DIAGNOSTIC IMAGING REPORT ---
PROCEDURE: XR CHEST 2 VIEW INDICATION: TRAUMA FELL TECHNIQUE: PA and lateral view. COMPARISON: Chest x-ray 08/05/2016. FINDINGS: Interval CABG and median sternotomy. Heart size and mediastinum are normal. Resolved pulmonary vascular congestion and interstitial edema. Stable double lumen right IJ catheter. Bony thorax is unremarkable. IMPRESSION: 1. Interval sternotomy and CABG 2. Double lumen right IJ catheter in satisfactory position 3. Results discussed with Dr. Joe
--- NOTE | 2016-09-24 13:35 | ED NURSING NOTES ---
Clinical Report - Nurses [facility] [address] [place] [address] 09/24/2016 12:31 Patient: ADI RICO TRIAGE Acuity: LEVEL 3. Chief Complaint: FALL while walking; tripped. Alert. No acute distress. SEPSIS SCREEN: Sepsis Screen. Negative (no infection suspected/documented). ROSE COMA SCORE: [place] Coma Scale: 15- eyes open spontaneously (4); best verbal response- oriented x 4 (5); best motor response- obeys commands (6). --12:44 Dorita Frank R.N. 12:36 09/24/16. BP: 138/73. HR: 88. RR: 20. O2 saturation: 95% on room air. Temp: 98.5 F (oral). Pain level now: 02/12. --12:44 Dorita Frank R.N. Weight: 74 kg stated. Height/Length: 66 inches Per Patient. BMI: 26.3. --12:40 Dorita Frank R.N. Medications ALPRAZolam Oral. Ativan Oral 1 mg, 4x a day (PRN migraines). Docusate Sodium Oral 240 mg, daily (2 bottles from 11-18-15; 12-17-15). Insulin Regular Human Injection sliding scale 2x/day. Lantus Subcutaneous 20 units , at bedtime. Losartan Potassium Oral 25 mg, daily (2 bottles 11-18-15; 12-17-15). Methadone HCl Oral 125mg daily taken at 0900 . Senna Laxative Oral 1-2 tabs, daily (2 bottles 11-18-15; 12-17-15). Simvastatin Oral 40 mg, daily (1 bottle dated 11-19-15). Vit d 1000 units, daily (3 bottles 11-18; 12-17-15; 01-17-16). --12:40 Dorita Frank R.N. Albuterol Sulfate Inhalation. --13:03 Dorita Frank R.N. Sevelamer Carbonate Oral. --13:04 Dorita Frank R.N. Atorvastatin Calcium Oral. --13:04 Dorita Frank R.N. Combivent Respimat Inhalation. --13:04 Dorita Frank R.N. Levothyroxine Sodium Oral. --13:04 Dorita Frank R.N. Medroxyprogesterone Acetate Intramuscular. --13:05 Dorita Frank R.N. LORazepam Oral. --13:06 Dorita Frank R.N. HydrALAZINE HCl Oral. --13:06 Dorita Frank R.N. Ergocalciferol Oral. --13:06 Dorita Frank R.N. Sennosides Oral. --13:07 Dorita Frank R.N. B Complete Oral. --13:07 Dorita Frank R.N. FerrouSul Oral. --13:11 Dorita Frank R.N. Aspirin Low Dose Oral. --13:13 Dorita Frank R.N. Medication/allergy information source: the patient. --12:44 Dorita Frank R.N. Allergies Augmentin. Codeine. Compazine. Darvocet. Inapsine. Phenergan. (muscles twitch) Reglan. Toradol. Tramadol. Vistril. Zofran. (headache) --12:40 Dorita Frank R.N. History Arrived by EMS. Historian: patient. Unaccompanied. Primary physician (César Duran). This occurred (2 days ago). Occurred at home. No loss of consciousness. No alteration in mental status or neck pain. Treatment TERRITORY ACCOUNT MANAGER: Recently seen in a clinic; seen for similar symptoms. PAST MEDICAL HX: Uses depo injections. SOCIAL HX: Smoker- current status unknown. History of weekly drug use: marijuana. No alcohol use. NUTRITIONAL RISK ASSESSMENT: The nutritional risk assessment revealed no deficiencies. LEARNING NEEDS ASSESSMENT: The learning needs assessment revealed no barriers. FALL RISK ASSESSMENT: Fall risk assessment completed. Risk factors identified include patient medications, history of fall and impairment of mobility. FUNCTIONAL ASSESSMENT: Functional assessment performed: independent with the activities of daily living. --12:44 Dorita Frank R.N. ( Pt reports she had triple bypass surgery on September 06. She was discharged home on September 09, and reports she was doing well. She states she tripped while walking 2 days ago and now has left sided chest pain.). --12:45 Dorita Frank R.N. Treatment TERRITORY ACCOUNT MANAGER: EMS treatment TERRITORY ACCOUNT MANAGER verbally communicated. BP: 110/86. --12:49 Dorita Frank R.N. PROBLEMS: Anxiety Reaction. Kidney failure. Substance Abuse. Hyperglycemia. Hyperkalemia. Renal Failure. Hematuria. Tension-Type Headache. Chronic Headache. Abscess. Renal Insufficiency. Cellulitis. Atypical Chest Pain. Gastroparesis. Contusion. Fall. Tetanus Status. Headache. Migraine Headache. Immunizations. Gastroesophageal Reflux. Narcotic Withdrawal. UTI - Urinary Tract Infection. Vomiting. Abdominal Pain. Diabetes Mellitus. Hypertension. --12:40 Dorita Frank R.N. ADDITIONAL SURGERIES: Ankle. Incision and drainage of abscess. Oophorectomy. Shoulder Surgery. Sinus Surgery. --12:40 Dorita Frank R.N. Assessment GENERAL / NEURO / PSYCH: Alert. Oriented X 4. Appears in no acute distress. Patient appears calm and cooperative. RESPIRATORY: Respirations not labored. CVS: Capillary refill less than 2 seconds. GI / : Abdomen soft. SKIN: Mucous membranes are pink. Skin is warm and dry. --12:44 Dorita Frank R.N. Interventions ID band on patient. To treatment room. Transported via stretcher. --12:44 Dorita Frank R.N. PHYSICAL ASSESSMENT 12:46 09/24/16. To room via stretcher. GENERAL / NEURO / PSYCH: Alert. Oriented X 4. Appears in no acute distress. HEENT: Head non-tender. RESPIRATORY: Respirations not labored. Chest wall: tenderness (healing surgical scar. No signs of infection). CVS: Cardiac rhythm: normal sinus rhythm. Pulses within normal limits. Capillary refill less than 2 seconds. GI / : Abdomen nontender. EXTREMITIES: Neuro-vascular status intact to the extremity. SKIN: Skin is warm and dry. --12:47 Dorita Frank R.N. NURSING PROGRESS NOTES Cardiac rhythm: normal sinus rhythm. Glucose: 192. Patient gowned. Warming measures: blanket applied. Two patient identifiers checked. Call light placed in reach. Side rails up x 2. Bed placed in lowest position. Brakes of bed on. --12:48 Dorita Frank R.N. 12:48 09/24/2016 Site #1 started via IV in the left forearm with an 22g angiocath, with aseptic technique and good blood return; one attempt. Blood drawn: rainbow set. Labeled in the presence of the patient and sent to the lab. Saline lock flushed with 10 mL saline. --12:48 Dorita Frank R.N. 12:49 09/24/16. Patient ready for evaluation- ED physician notified. --12:49 Dorita Frank R.N. 13:45 09/24/2016 Site #1 removed upon discharge. Catheter intact. Manual pressure and bandage applied. --17:32 Dorita Frank R.N. DISPOSITION / DISCHARGE Departure time: 135Sep 24 2016. Condition at departure: improved and stable. No learning barriers present. Discharge instructions provided and reviewed with the patient. Activity restrictions (light lifting and rest) reviewed. Patient verbalized understanding. Written instructions provided in Burmese. The patient was discharged by the physician. She was discharged home and accompanied by electrician supervisor substation. She left the Emergency Department ambulatory and via private vehicle. Document Control Coordinator driving. --17:31 Dorita Frank R.N. 17:29 09/24/16. BP: 103/65. HR: 90. RR: 14. O2 saturation: 97% on room air. Temp: 97.9 F. Pain level now: 12/12. --17:31 Dorita Frank R.N. Locked/Released at 09/24/2016 17:32 by Dorita Frank R.N.
--- NOTE | 2016-09-24 13:35 | ED CLINICAL REPORT ---
Clinical Report - Physicians/Mid Levels [facility] [address] [place] [address] 09/24/2016 12:31 Patient: ADI RICO Time Seen: 12:40. Arrived- By ambulance. Historian- patient and EMS personnel. HISTORY OF PRESENT ILLNESS Chief Complaint: INJURY TO CHEST also wants meds for ANXIETY. The injury occurred 2 days ago. Occurred at home. ( CABG 4th, Fall 2 days ago). Fell while walking; tripped. The patient complains of moderate pain. No blow to the head, neck pain or loss of consciousness. (Pt had a CABG 4/ at [facility]. She fell 2 days ago. She was sent by EMS from a [facility].). REVIEW OF SYSTEMS No numbness, nausea, abdominal pain, laceration or vomiting. She has had chest pain (incisional). PAST HISTORY PROBLEMS: Anxiety Reaction. Kidney failure with dialysis Recent CABG . Diabetes Mellitus. Hypertension. --12:40 Dorita Frank R.N. ADDITIONAL SURGERIES: CABG Ankle. Incision and drainage of abscess. Oophorectomy. Shoulder Surgery Sinus Surgery. ADDITIONAL NOTES The nursing notes have been reviewed. PHYSICAL EXAM Vital Signs: 09/24/2016 17:29 BP: 103/65. HR: 90. RR: 14. O2 saturation: 97%. Temp: 97.9 F. Pain level now: 7/10. 09/24/2016 12:36 BP: 138/73. HR: 88. RR: 20. O2 saturation: 95%. Temp: 98.5 F. Pain level now: 9/10. Appearance: Alert. Head: Head non-tender. No swelling of head. Neck: Painless ROM. Non-tender. CVS: Heart sounds normal. Respiratory: Breath sounds normal. (Recent median sternotomy incision healing well without deformity, ecchymosis or swelling. Has R CW dialysis cath.). Abdomen: No visible injury. Soft and nontender. Back: No tenderness. Extremities: Normal inspection. Extremities atraumatic. Neuro: No alteration in mental status. LABS, X-RAYS, AND EKG X-Rays: Chest X-ray negative. The X-rays were interpreted by the radiologist and contemporaneously by me and discussed with the radiologist. PROGRESS AND PROCEDURES Course of Care: No evidence of disruption of median sternotomy. Pt strongly advocating for benzos for pain and anxiety. I defer that decision to her PCP. Since she has a recent fall there is a good reason not to give benzodiazepines as this might increase gait instability. Disposition: Discharged. Condition: stable. CLINICAL IMPRESSION Single contusion to the anterior chest. HISTORY OF FALL HISTORY OF RECENT CABG HISTORY OF ANXIETY. INSTRUCTIONS (NO EVIDENCE OF HARM FROM FALL YOU SHOULD CONTACT YOUR DR FOR TREATMENT OF ANXIETY.). Follow-up: Follow up with your doctor Monday. Understanding of the discharge instructions verbalized by patient. (Electronically signed by Markell Joe MD 09/26/2016 12:30)
--- NOTE | 2016-09-24 13:35 | ED NURSING NOTES ---
Clinical Report - Nurses [facility] [address] [place] [address] 09/24/2016 12:31 Patient: ADI RICO TRIAGE Acuity: LEVEL 3. Chief Complaint: FALL while walking; tripped. Alert. No acute distress. SEPSIS SCREEN: Sepsis Screen. Negative (no infection suspected/documented). ROSE COMA SCORE: [place] Coma Scale: 15- eyes open spontaneously (4); best verbal response- oriented x 4 (5); best motor response- obeys commands (6). --12:44 Dorita Frank R.N. 12:36 09/24/16. BP: 138/73. HR: 88. RR: 20. O2 saturation: 95% on room air. Temp: 98.5 F (oral). Pain level now: 02/12. --12:44 Dorita Frank R.N. Weight: 74 kg stated. Height/Length: 66 inches Per Patient. BMI: 26.3. --12:40 Dorita Frank R.N. Medications ALPRAZolam Oral. Ativan Oral 1 mg, 4x a day (PRN migraines). Docusate Sodium Oral 240 mg, daily (2 bottles from 11-18-15; 12-17-15). Insulin Regular Human Injection sliding scale 2x/day. Lantus Subcutaneous 20 units , at bedtime. Losartan Potassium Oral 25 mg, daily (2 bottles 11-18-15; 12-17-15). Methadone HCl Oral 125mg daily taken at 0900 . Senna Laxative Oral 1-2 tabs, daily (2 bottles 11-18-15; 12-17-15). Simvastatin Oral 40 mg, daily (1 bottle dated 11-19-15). Vit d 1000 units, daily (3 bottles 11-18; 12-17-15; 01-17-16). --12:40 Dorita Frank R.N. Albuterol Sulfate Inhalation. --13:03 Dorita Frank R.N. Sevelamer Carbonate Oral. --13:04 Dorita Frank R.N. Atorvastatin Calcium Oral. --13:04 Dorita Frank R.N. Combivent Respimat Inhalation. --13:04 Dorita Frank R.N. Levothyroxine Sodium Oral. --13:04 Dorita Frank R.N. Medroxyprogesterone Acetate Intramuscular. --13:05 Dorita Frank R.N. LORazepam Oral. --13:06 Dorita Frank R.N. HydrALAZINE HCl Oral. --13:06 Dorita Frank R.N. Ergocalciferol Oral. --13:06 Dorita Frank R.N. Sennosides Oral. --13:07 Dorita Frank R.N. B Complete Oral. --13:07 Dorita Frank R.N. FerrouSul Oral. --13:11 Dorita Frank R.N. Aspirin Low Dose Oral. --13:13 Dorita Frank R.N. Medication/allergy information source: the patient. --12:44 Dorita Frank R.N. Allergies Augmentin. Codeine. Compazine. Darvocet. Inapsine. Phenergan. (muscles twitch) Reglan. Toradol. Tramadol. Vistril. Zofran. (headache) --12:40 Dorita Frank R.N. History Arrived by EMS. Historian: patient. Unaccompanied. Primary physician (Céasr Druan). This occurred (2 days ago). Occurred at home. No loss of consciousness. No alteration in mental status or neck pain. Treatment REPAIR SERVICE DISPATCHER: Recently seen in a clinic; seen for similar symptoms. PAST MEDICAL HX: Uses depo injections. SOCIAL HX: Smoker- current status unknown. History of weekly drug use: marijuana. No alcohol use. NUTRITIONAL RISK ASSESSMENT: The nutritional risk assessment revealed no deficiencies. LEARNING NEEDS ASSESSMENT: The learning needs assessment revealed no barriers. FALL RISK ASSESSMENT: Fall risk assessment completed. Risk factors identified include patient medications, history of fall and impairment of mobility. FUNCTIONAL ASSESSMENT: Functional assessment performed: independent with the activities of daily living. --12:44 Dorita Frank R.N. ( Pt reports she had triple bypass surgery on September 06. She was discharged home on September 09, and reports she was doing well. She states she tripped while walking 2 days ago and now has left sided chest pain.). --12:45 Dorita Frank R.N. Treatment REPAIR SERVICE DISPATCHER: EMS treatment REPAIR SERVICE DISPATCHER verbally communicated. BP: 110/86. --12:49 Dorita Frank R.N. PROBLEMS: Anxiety Reaction. Kidney failure. Substance Abuse. Hyperglycemia. Hyperkalemia. Renal Failure. Hematuria. Tension-Type Headache. Chronic Headache. Abscess. Renal Insufficiency. Cellulitis. Atypical Chest Pain. Gastroparesis. Contusion. Fall. Tetanus Status. Headache. Migraine Headache. Immunizations. Gastroesophageal Reflux. Narcotic Withdrawal. UTI - Urinary Tract Infection. Vomiting. Abdominal Pain. Diabetes Mellitus. Hypertension. --12:40 Dorita Frank R.N. ADDITIONAL SURGERIES: Ankle. Incision and drainage of abscess. Oophorectomy. Shoulder Surgery. Sinus Surgery. --12:40 Dorita Frank R.N. Assessment GENERAL / NEURO / PSYCH: Alert. Oriented X 4. Appears in no acute distress. Patient appears calm and cooperative. RESPIRATORY: Respirations not labored. CVS: Capillary refill less than 2 seconds. GI / : Abdomen soft. SKIN: Mucous membranes are pink. Skin is warm and dry. --12:44 Dorita Frank R.N. Interventions ID band on patient. To treatment room. Transported via stretcher. --12:44 Dorita Frank R.N. PHYSICAL ASSESSMENT 12:46 09/24/16. To room via stretcher. GENERAL / NEURO / PSYCH: Alert. Oriented X 4. Appears in no acute distress. HEENT: Head non-tender. RESPIRATORY: Respirations not labored. Chest wall: tenderness (healing surgical scar. No signs of infection). CVS: Cardiac rhythm: normal sinus rhythm. Pulses within normal limits. Capillary refill less than 2 seconds. GI / : Abdomen nontender. EXTREMITIES: Neuro-vascular status intact to the extremity. SKIN: Skin is warm and dry. --12:47 Dorita Frank R.N. NURSING PROGRESS NOTES Cardiac rhythm: normal sinus rhythm. Glucose: 192. Patient gowned. Warming measures: blanket applied. Two patient identifiers checked. Call light placed in reach. Side rails up x 2. Bed placed in lowest position. Brakes of bed on. --12:48 Dorita Frank R.N. 12:48 09/24/2016 Site #1 started via IV in the left forearm with an 22g angiocath, with aseptic technique and good blood return; one attempt. Blood drawn: rainbow set. Labeled in the presence of the patient and sent to the lab. Saline lock flushed with 10 mL saline. --12:48 Dorita Frank R.N. 12:49 09/24/16. Patient ready for evaluation- ED physician notified. --12:49 Dorita Frank R.N. 13:45 09/24/2016 Site #1 removed upon discharge. Catheter intact. Manual pressure and bandage applied. --17:32 Dorita Frank R.N. DISPOSITION / DISCHARGE Departure time: 135Sep 24 2016. Condition at departure: improved and stable. No learning barriers present. Discharge instructions provided and reviewed with the patient. Activity restrictions (light lifting and rest) reviewed. Patient verbalized understanding. Written instructions provided in [place]. The patient was discharged by the physician. She was discharged home and accompanied by cardiologist. She left the Emergency Department ambulatory and via private vehicle. Bridge Manager driving. --17:31 Dorita Frank R.N. 17:29 09/24/16. BP: 103/65. HR: 90. RR: 14. O2 saturation: 97% on room air. Temp: 97.9 F. Pain level now: 12/12. --17:31 Dorita Frank R.N. Locked/Released at 09/24/2016 17:32 by Dorita Frank R.N.
--- NOTE | 2016-09-24 13:35 | ED CLINICAL REPORT ---
Clinical Report - Physicians/Mid Levels [facility] [address] [place] [address] 09/24/2016 12:31 Patient: ADI RICO Time Seen: 12:40. Arrived- By ambulance. Historian- patient and EMS personnel. HISTORY OF PRESENT ILLNESS Chief Complaint: INJURY TO CHEST also wants meds for ANXIETY. The injury occurred 2 days ago. Occurred at home. ( CABG 4th, Fall 2 days ago). Fell while walking; tripped. The patient complains of moderate pain. No blow to the head, neck pain or loss of consciousness. (Pt had a CABG 4/ at [facility]. She fell 2 days ago. She was sent by EMS from a [facility] REVIEW OF SYSTEMS No numbness, nausea, abdominal pain, laceration or vomiting. She has had chest pain (incisional). PAST HISTORY PROBLEMS: Anxiety Reaction. Kidney failure with dialysis Recent CABG . Diabetes Mellitus. Hypertension. --12:40 Dorita Frank R.N. ADDITIONAL SURGERIES: CABG Ankle. Incision and drainage of abscess. Oophorectomy. Shoulder Surgery Sinus Surgery. ADDITIONAL NOTES The nursing notes have been reviewed. PHYSICAL EXAM Vital Signs: 09/24/2016 17:29 BP: 103/65. HR: 90. RR: 14. O2 saturation: 97%. Temp: 97.9 F. Pain level now: 7/10. 09/24/2016 12:36 BP: 138/73. HR: 88. RR: 20. O2 saturation: 95%. Temp: 98.5 F. Pain level now: 9/10. Appearance: Alert. Head: Head non-tender. No swelling of head. Neck: Painless ROM. Non-tender. CVS: Heart sounds normal. Respiratory: Breath sounds normal. (Recent median sternotomy incision healing well without deformity, ecchymosis or swelling. Has R CW dialysis cath.). Abdomen: No visible injury. Soft and nontender. Back: No tenderness. Extremities: Normal inspection. Extremities atraumatic. Neuro: No alteration in mental status. LABS, X-RAYS, AND EKG X-Rays: Chest X-ray negative. The X-rays were interpreted by the radiologist and contemporaneously by me and discussed with the radiologist. PROGRESS AND PROCEDURES Course of Care: No evidence of disruption of median sternotomy. Pt strongly advocating for benzos for pain and anxiety. I defer that decision to her PCP. Since she has a recent fall there is a good reason not to give benzodiazepines as this might increase gait instability. Disposition: Discharged. Condition: stable. CLINICAL IMPRESSION Single contusion to the anterior chest. HISTORY OF FALL HISTORY OF RECENT CABG HISTORY OF ANXIETY. INSTRUCTIONS (NO EVIDENCE OF HARM FROM FALL YOU SHOULD CONTACT YOUR DR FOR TREATMENT OF ANXIETY.). Follow-up: Follow up with your doctor Monday. Understanding of the discharge instructions verbalized by patient. (Electronically signed by Markell Joe MD 09/26/2016 12:30)
--- NOTE | 2016-09-24 13:36 | ED ORDER SUMMARY ---
..... Patient: ADI RICO OrderSheet [facility] VisitID: [id number] [address] [place] [address] 46y, F Registration Date/Time: 09/24/2016 ORDER SHEET Weight: 74 kg (stated) Allergies: Augmentin, Codeine, Compazine, Darvocet, Inapsine, Phenergan, Reglan, Toradol, Tramadol, Vistril, Zofran GENERAL ORDERS: Chest 2V Urgent (12:50 09/24/2016 Nadege DALAL) (Ack 12:56 Rachel) (13:05 Alek) MEDICATION ORDERS: IV FLUIDS: ORDER SHEET NOTES: [Electronically signed by Dorita Frank R.N. (17:32 09/24/2016)] [Electronically signed by Markell Joe MD (12:30 09/26/2016)] [Electronically locked/signed by Dorita Frank R.N. (17:32 09/24/2016)]
--- NOTE | 2016-09-24 13:36 | ED ORDER SUMMARY ---
..... Patient: ADI RICO OrderSheet [facility] VisitID: [id number] [address] [place] [address] 46y, F Registration Date/Time: 09/24/2016 ORDER SHEET Weight: 74 kg (stated) Allergies: Augmentin, Codeine, Compazine, Darvocet, Inapsine, Phenergan, Reglan, Toradol, Tramadol, Vistril, Zofran GENERAL ORDERS: Chest 2V Urgent (12:50 09/24/2016 Nadege DALAL) (Ack 12:56 Rachel) (13:05 Alek) MEDICATION ORDERS: IV FLUIDS: ORDER SHEET NOTES: [Electronically signed by Dorita Frank R.N. (17:32 09/24/2016)] [Electronically signed by Markell Joe MD (12:30 09/26/2016)] [Electronically locked/signed by Dorita Frank R.N. (17:32 09/24/2016)]
--- NOTE | 2016-09-26 12:30 | ED MAR SUMMARY ---
..... Medication Administration Record [facility] [address] [place] [address] Patient: ADI RICO Visit ID: [id number] 46y, F Weight: 74.0 kg Height/Length: 66 in BMI: 26.3 ALLERGIES: Augmentin, Codeine, Compazine, Darvocet, Inapsine, Phenergan, Reglan, Toradol, Tramadol, Vistril, Zofran
--- NOTE | 2016-09-26 12:30 | ED DISCHARGE INSTRUCTIONS ---
Patient: ADI RICO General Instructions [facility] VisitID: [id number] [place] [address] 46y, F Registration Date/Time: 09/24/2016 Single contusion to the anterior chest. HISTORY OF FALL HISTORY OF RECENT CABG HISTORY OF ANXIETY. INSTRUCTIONS (NO EVIDENCE OF HARM FROM FALL YOU SHOULD CONTACT YOUR DR FOR TREATMENT OF ANXIETY.). Follow-up: Follow up with your doctor Monday. Understanding of the discharge instructions verbalized by patient. ADDITIONAL INFORMATION Chest Contusion Acontusion is a bruise to the skin, muscle or ribs. It may cause pain, tenderness, swelling and a purplish discoloration. Contusions take a few days to a few weeks to heal. Home Care: Rest. You should not be doing any heavy lifting or strenuous exertion, or any activity that causes pain. You may use acetaminophen (Tylenol) or ibuprofen (Motrin, Advil) to control pain, unless another pain medicine was prescribed. [ NOTE: If you have chronic liver or kidney disease or ever had a stomach ulcer or GI bleeding, talk with your doctor before using these medicines.] Follow Up with your doctor during the next week or as directed. Get Prompt Medical Attention if any of the following occur: Shortness of breath Increasing chest pain with breathing Dizziness, weakness or fainting New or worsening of abdominal pain Fever of 100.4F (38C) or higher, or as directed by your healthcare provider You have been given the following additional information: Chest Wall Contusion (Electronically signed by Markell Joe MD 09/26/2016 12:30)
--- NOTE | 2016-09-26 12:30 | ED MED RECONCILIATION SUMMARY ---
Patient: ADI RICO Medication Reconciliation Report [facility] VisitID: [id number] [place] [address] 46y, F Registration Date/Time: 09/24/2016 Weight: 74 kg Height/Length: 66 in. BMI: 26.3 ALLERGIES: Augmentin, Codeine, Compazine, Darvocet, Inapsine, Phenergan, Reglan, Toradol, Tramadol, Vistril, Zofran The patient's Home Medications are listed below: THE FOLLOWING MEDICATIONS NEED TO BE RECONCILED: Albuterol Sulfate Inhalation ALPRAZolam Oral Aspirin Low Dose Oral Ativan Oral 1 mg, 4x a day, PRN migraines Atorvastatin Calcium Oral B Complete Oral Combivent Respimat Inhalation Docusate Sodium Oral 240 mg, daily, 2 bottles from 11-18-15; 12-17-15 Ergocalciferol Oral FerrouSul Oral HydrALAZINE HCl Oral Insulin Regular Human Injection sliding scale 2x/day Lantus Subcutaneous 20 units , at bedtime Levothyroxine Sodium Oral LORazepam Oral Losartan Potassium Oral 25 mg, daily, 2 bottles 11-18-15; 12-17-15 Medroxyprogesterone Acetate Intramuscular Methadone HCl Oral 125mg daily taken at 0900 Senna Laxative Oral 1-2 tabs, daily, 2 bottles 11-18-15; 12-17-15 Sennosides Oral Sevelamer Carbonate Oral Simvastatin Oral 40 mg, daily, 1 bottle dated 11-19-15 Vit d 1000 units, daily, 3 bottles 11-18; 12-17-15; 01-17-16 The source(s) of the original Home Medication information: patient The following Medications were given to the patient in the Emergency Department: None. The following Medications were prescribed to the patient: None.
--- NOTE | 2016-09-26 12:30 | ED MAR SUMMARY ---
..... Medication Administration Record [facility] [address] [place] [address] Patient: ADI RICO Visit ID: [id number] 46y, F Weight: 74.0 kg Height/Length: 66 in BMI: 26.3 ALLERGIES: Augmentin, Codeine, Compazine, Darvocet, Inapsine, Phenergan, Reglan, Toradol, Tramadol, Vistril, Zofran
--- NOTE | 2016-09-26 12:30 | ED DISCHARGE INSTRUCTIONS ---
Patient: ADI RICO General Instructions [facility] VisitID: [id number] [place] [address] 46y, F Registration Date/Time: 09/24/2016 Single contusion to the anterior chest. HISTORY OF FALL HISTORY OF RECENT CABG HISTORY OF ANXIETY. INSTRUCTIONS (NO EVIDENCE OF HARM FROM FALL YOU SHOULD CONTACT YOUR DR FOR TREATMENT OF ANXIETY.). Follow-up: Follow up with your doctor Monday. Understanding of the discharge instructions verbalized by patient. ADDITIONAL INFORMATION Chest Contusion Acontusion is a bruise to the skin, muscle or ribs. It may cause pain, tenderness, swelling and a purplish discoloration. Contusions take a few days to a few weeks to heal. Home Care: Rest. You should not be doing any heavy lifting or strenuous exertion, or any activity that causes pain. You may use acetaminophen (Tylenol) or ibuprofen (Motrin, Advil) to control pain, unless another pain medicine was prescribed. [ NOTE: If you have chronic liver or kidney disease or ever had a stomach ulcer or GI bleeding, talk with your doctor before using these medicines.] Follow Up with your doctor during the next week or as directed. Get Prompt Medical Attention if any of the following occur: Shortness of breath Increasing chest pain with breathing Dizziness, weakness or fainting New or worsening of abdominal pain Fever of 100.4F (38C) or higher, or as directed by your healthcare provider You have been given the following additional information: Chest Wall Contusion (Electronically signed by Markell Joe MD 09/26/2016 12:30)
--- NOTE | 2016-09-26 12:30 | ED MED RECONCILIATION SUMMARY ---
Patient: ADI RICO Medication Reconciliation Report [facility] VisitID: [id number] [place] [address] 46y, F Registration Date/Time: 09/24/2016 Weight: 74 kg Height/Length: 66 in. BMI: 26.3 ALLERGIES: Augmentin, Codeine, Compazine, Darvocet, Inapsine, Phenergan, Reglan, Toradol, Tramadol, Vistril, Zofran The patient's Home Medications are listed below: THE FOLLOWING MEDICATIONS NEED TO BE RECONCILED: Albuterol Sulfate Inhalation ALPRAZolam Oral Aspirin Low Dose Oral Ativan Oral 1 mg, 4x a day, PRN migraines Atorvastatin Calcium Oral B Complete Oral Combivent Respimat Inhalation Docusate Sodium Oral 240 mg, daily, 2 bottles from 11-18-15; 12-17-15 Ergocalciferol Oral FerrouSul Oral HydrALAZINE HCl Oral Insulin Regular Human Injection sliding scale 2x/day Lantus Subcutaneous 20 units , at bedtime Levothyroxine Sodium Oral LORazepam Oral Losartan Potassium Oral 25 mg, daily, 2 bottles 11-18-15; 12-17-15 Medroxyprogesterone Acetate Intramuscular Methadone HCl Oral 125mg daily taken at 0900 Senna Laxative Oral 1-2 tabs, daily, 2 bottles 11-18-15; 12-17-15 Sennosides Oral Sevelamer Carbonate Oral Simvastatin Oral 40 mg, daily, 1 bottle dated 11-19-15 Vit d 1000 units, daily, 3 bottles 11-18; 12-17-15; 01-17-16 The source(s) of the original Home Medication information: patient The following Medications were given to the patient in the Emergency Department: None. The following Medications were prescribed to the patient: None.
== END 2016-09-24 13:50 | disposition home or self-care (01) ==
LOC: ED SRH 12:19
DX: S20.229A Contusion of unspecified back wall of thorax, initial encounter (principal); W19.XXXA Unspecified fall, initial encounter; Y93.01 Activity, walking, marching and hiking; Z95.1 Presence of aortocoronary bypass graft; E11.65 Type 2 diabetes mellitus with hyperglycemia; E11.22 Type 2 diabetes mellitus with diabetic chronic kidney disease; I13.10 Hypertensive heart and chronic kidney disease without heart failure, with stage 1 through stage 4 chronic kidney disease, or unspecified chronic kidney disease; N19 Unspecified kidney failure; Y92.009 Unspecified place in unspecified non-institutional (private) residence as the place of occurrence of the external cause; Y99.8 Other external cause status

== ENCOUNTER 2016-10-29 09:44 | Emergency (ER) | payer OTHER ==
--- NOTE | 2016-10-29 10:01 | ED ORDER SUMMARY ---
..... Patient: ADI RICO OrderSheet [facility] VisitID: [id number] [address] [place] [address] 46y, F Registration Date/Time: 10/29/2016 ORDER SHEET Weight: 68.0 kg (stated) Allergies: Augmentin, Codeine, Compazine, Darvocet, Inapsine, Phenergan, Reglan, Toradol, Tramadol, Vistril, Zofran GENERAL ORDERS: MEDICATION ORDERS: Metoprolol PO 50 mg (HIGH ALERT MEDICATION, NOW) (09:59 10/29/2016 Nadege DALAL) (10:12 Megha Spring) IV FLUIDS: ORDER SHEET NOTES: [Electronically signed by Marcial Hargrove R.N. (10:59 10/29/2016)] [Electronically signed by Markell Joe MD (08:38 11/01/2016)] [Electronically locked/signed by Marcial Hargrove R.N. (10:59 10/29/2016)]
--- NOTE | 2016-10-29 10:01 | ED CLINICAL REPORT ---
Clinical Report - Physicians/Mid Levels [address] [place] [address] 10/29/2016 9:45 Patient: ADI RICO Time Seen: 09:45. Arrived- By ambulance. Historian- patient and EMS personnel. HISTORY OF PRESENT ILLNESS Chief Complaint: PALPITATIONS. Modifying factors- (Resolved with adenosine). This started just prior to arrival As Ms iRco was finishing dialysis, she developed SVT. She was given adenosine by medics and she converted to NSR and is now without symptoms. She tells me that she is leaving at 1030 without fail because she needs to get to her methadone clinic without fail as this is the start of a long holiday weekend and she will be without medication if she does not make her appointment. She missed one or more doses of her usual metoprolol. and is now gone. Onset during rest. It was abrupt in onset. It is described as a fast heart beat. No chest pain or discomfort, difficulty breathing, sweating episodes or fainting episodes. 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 Similar symptoms previously: Several times. 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 REVIEW OF SYSTEMS No fever, chills, nausea, abdominal pain or vomiting. PAST HISTORY PCP: Dr César MALIK Ops: CABG and many more Illness: Renal failure with dialysis, CAD, Methadone maintenance. SOCIAL HISTORY Former smoker. ADDITIONAL NOTES The nursing notes have been reviewed. PHYSICAL EXAM Vital Signs: 10/29/2016 09:47 BP: 162/109. HR: 102. RR: 20. O2 saturation: 100%. Temp: 99 F. Pain level now: 0/10. 10/29/2016 09:47 BP: 162/109. HR: 102. RR: 20. O2 saturation: 100%. Temp: 99 F. Pain level now: 0/10. Appearance: Alert. No acute distress. CVS: Heart sounds normal. Respiratory: Breath sounds normal. Abdomen: Nontender. PROGRESS AND PROCEDURES Course of Care: 10:00 10/29/16. The patient has told me that she will leave promptly at 10:15 because of her need to get to the methadone clinic. Review of the EMS rhythm strip and the current EKG shows no ischemic ischemia. She had no symptoms of significant chest pain. This is not ideal, but it meets the patient's needs as she prioritizes them. 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 Disposition: Discharged. CLINICAL IMPRESSION Paroxysmal supraventricular tachycardia INSTRUCTIONS (YOU NEED TO TAKE YOUR METOPORLOL FILL YOUR RX TODAY TAKE IT TONIGHT). Follow-up: Follow up with your doctor in three days. Reason for referral: Heart rhythm problem. Understanding of the discharge instructions verbalized by patient. (Electronically signed by Markell Joe MD 11/01/2016 8:38)
--- NOTE | 2016-10-29 10:01 | ED NURSING NOTES ---
Clinical Report - Nurses [facility] [address] [place] [address] 10/29/2016 9:45 Patient: ADI RICO TRIAGE Triage time 09:47. Acuity: LEVEL 3. Chief Complaint: (Asymptomatic SVT at dialysis this am. She completed her full tx. Pt is planning to leave AMA at 1000 to get to the Methadone clinic.). SEPSIS SCREEN: Sepsis Screen. Negative (no infection suspected/documented). EULOGIO COMA SCORE: Eulogio Coma Scale: 15- eyes open spontaneously (4); best verbal response- oriented x 4 (5); best motor response- obeys commands (6). --09:57 Marcial Hargrove R.N. 09:47 10/29/16. BP: 162/109. HR: 102 (regular). RR: 20. O2 saturation: 100% on room air. Temp: 99 F (tympanic). Pain level now: 0/10. --09:57 Marcial Hargrove R.N. Weight: 68 kg stated. Height/Length: 66 inches Per Patient. BMI: 24.2. --09:51 Marcial Hargrove R.N. Medications Albuterol Sulfate Inhalation. ALPRAZolam Oral. Aspirin Low Dose Oral. Ativan Oral 1 mg, 4x a day (PRN migraines). Atorvastatin Calcium Oral. B Complete Oral. Combivent Respimat Inhalation. Docusate Sodium Oral 240 mg, daily (2 bottles from 11-18-15; 12-17-15). Ergocalciferol Oral. FerrouSul Oral. Insulin Regular Human Injection sliding scale 2x/day. Lantus Subcutaneous 20 units , at bedtime. --09:54 Marcial Hargrove R.N. Levothyroxine Sodium Oral. LORazepam Oral. Medroxyprogesterone Acetate Intramuscular. Methadone HCl Oral 125mg daily taken at 0900 . Senna Laxative Oral 1-2 tabs, daily (2 bottles 11-18-15; 12-17-15). Sennosides Oral. Sevelamer Carbonate Oral. Simvastatin Oral 40 mg, daily (1 bottle dated 11-19-15). Vit d 1000 units, daily (3 bottles 11-18; 12-17-15; 01-17-16). --:54 Marical Hargrove R.N. Metoprolol Succinate ER Oral. --:54 Marcial Hargrove R.N. Allergies Augmentin. Codeine. Compazine. Darvocet. Inapsine. Phenergan. (muscles twitch) Reglan. --09:54 Marcial Hagrrove R.N. Toradol. Tramadol. Vistril. Zofran. (headache) --09:54 Marcial Hargrove R.N. History Arrived by EMS, and (Medic 48). This started just prior to arrival. Treatment DEMI CHEF: (Adenosine 6mg IV by medics). SOCIAL HX: Former smoker, end date 07/2016 (cigarette). History of drug use: marijuana. (daily). No alcohol use. ABUSE ASSESSMENT: No report of abuse. --:57 Marcial Hargrove R.N. PROBLEMS: Anxiety Reaction. Kidney failure. Substance Abuse. Hyperglycemia. Hyperkalemia. Renal Failure. Hematuria. Tension-Type Headache. Chronic Headache. Abscess. Renal Insufficiency. Cellulitis. Atypical Chest Pain. Gastroparesis. Contusion. Fall. Headache. Migraine Headache. Gastroesophageal Reflux. Narcotic Withdrawal. UTI - Urinary Tract Infection. Vomiting. Abdominal Pain. Diabetes Mellitus. Hypertension. --:56 Marcial Hargrove R.N. ADDITIONAL SURGERIES: Ankle. CABG x3. Incision and drainage of abscess. Oophorectomy. Shoulder Surgery. Sinus Surgery. --:56 Marcial Hargrove R.N. Interventions ID band on patient. To treatment room. --09:57 Marcial Hargrove R.N. PHYSICAL ASSESSMENT late entry -09:50. To room via stretcher. ( Right chest HD access port.). GENERAL / NEURO / PSYCH: Alert. Oriented X 4. Appears in no acute distress. HEENT: Mucous membranes are pink. RESPIRATORY: Respirations not labored. Chest nontender. Breath sounds within normal limits. CVS: Normal sinus rhythm noted. Heart sounds within normal limits. Pulses within normal limits. Capillary refill less than 2 seconds. GI / : Abdomen soft and nontender. EXTREMITIES: No lower extremity edema. SKIN: Skin is warm and dry. Abnormal skin turgor. Skin is non-tender. ( Sternal incision healing well s/p CABG). --10:58 Marcial Hargrove R.N. NURSING PROGRESS NOTES 09:47 10/29/2016 Site #1 started prior to arrival by EMS via IV in the left forearm with an 20g angiocath, with aseptic technique and good blood return; one attempt. --10:54 Marcial Hargrove R.N. 10:10/29/2016 Metoprolol PO Tablets 50 mg given. Allergies verified and confirmed 5 rights. --10:12 Marcial Hargrove R.N. 10:10/29/2016 Site #1 removed upon discharge. --10:54 Marcial Hargrove R.N. 10:07 10/29/2016 Metoprolol PO Response: no adverse reaction. --10:53 Marcial Hargrove R.N. DISPOSITION / DISCHARGE Departure time: 1007. --10:12 Marcial Hargrove R.N. 09:47 10/29/16. BP: 162/109. HR: 102. RR: 20. O2 saturation: 100% on room air. Temp: 99 F (tympanic). Pain level now: 0/10. --10:12 Marcial Hargrove R.N. Locked/Released at 10/29/2016 10:59 by Marcial Hargrove R.N.
--- NOTE | 2016-10-29 10:01 | ED CLINICAL REPORT ---
Clinical Report - Physicians/Mid Levels [facility] [address] [place] [address] 10/29/2016 9:45 Patient: ADI RICO Time Seen: 09:45. Arrived- By ambulance. Historian- patient and EMS personnel. HISTORY OF PRESENT ILLNESS Chief Complaint: PALPITATIONS. Modifying factors- (Resolved with adenosine). This started just prior to arrival As Ms Rico was finishing dialysis, she developed SVT. She was given adenosine by medics and she converted to NSR and is now without symptoms. She tells me that she is leaving at 1030 without fail because she needs to get to her methadone clinic without fail as this is the start of a long holiday weekend and she will be without medication if she does not make her appointment. She missed one or more doses of her usual metoprolol. and is now gone. Onset during rest. It was abrupt in onset. It is described as a fast heart beat. No chest pain or discomfort, difficulty breathing, sweating episodes or fainting episodes. 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 Similar symptoms previously: Several times. 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 REVIEW OF SYSTEMS No fever, chills, nausea, abdominal pain or vomiting. PAST HISTORY PCP: Dr César MALIK Ops: CABG and many more Illness: Renal failure with dialysis, CAD, Methadone maintenance. SOCIAL HISTORY Former smoker. ADDITIONAL NOTES The nursing notes have been reviewed. PHYSICAL EXAM Vital Signs: 10/29/2016 09:47 BP: 162/109. HR: 102. RR: 20. O2 saturation: 100%. Temp: 99 F. Pain level now: 0/10. 10/29/2016 09:47 BP: 162/109. HR: 102. RR: 20. O2 saturation: 100%. Temp: 99 F. Pain level now: 0/10. Appearance: Alert. No acute distress. CVS: Heart sounds normal. Respiratory: Breath sounds normal. Abdomen: Nontender. PROGRESS AND PROCEDURES Course of Care: 10:00 10/29/16. The patient has told me that she will leave promptly at 10:15 because of her need to get to the methadone clinic. Review of the EMS rhythm strip and the current EKG shows no ischemic ischemia. She had no symptoms of significant chest pain. This is not ideal, but it meets the patient's needs as she prioritizes them. 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 Disposition: Discharged. CLINICAL IMPRESSION Paroxysmal supraventricular tachycardia INSTRUCTIONS (YOU NEED TO TAKE YOUR METOPORLOL FILL YOUR RX TODAY TAKE IT TONIGHT). Follow-up: Follow up with your doctor in three days. Reason for referral: Heart rhythm problem. Understanding of the discharge instructions verbalized by patient. (Electronically signed by Markell Joe MD 11/01/2016 8:38)
--- NOTE | 2016-10-29 10:01 | ED NURSING NOTES ---
Clinical Report - Nurses [facility] [address] [place] [address] 10/29/2016 9:45 Patient: ADI RICO TRIAGE Triage time 09:47. Acuity: LEVEL 3. Chief Complaint: (Asymptomatic SVT at dialysis this am. She completed her full tx. Pt is planning to leave AMA at 1000 to get to the Methadone clinic.). SEPSIS SCREEN: Sepsis Screen. Negative (no infection suspected/documented). EULOGIO COMA SCORE: Eulogio Coma Scale: 15- eyes open spontaneously (4); best verbal response- oriented x 4 (5); best motor response- obeys commands (6). --09:57 Marcial Hargrove R.N. 09:47 10/29/16. BP: 162/109. HR: 102 (regular). RR: 20. O2 saturation: 100% on room air. Temp: 99 F (tympanic). Pain level now: 0/10. --09:57 Marcial Hargrove R.N. Weight: 68 kg stated. Height/Length: 66 inches Per Patient. BMI: 24.2. --09:51 Marcial Hargrove R.N. Medications Albuterol Sulfate Inhalation. ALPRAZolam Oral. Aspirin Low Dose Oral. Ativan Oral 1 mg, 4x a day (PRN migraines). Atorvastatin Calcium Oral. B Complete Oral. Combivent Respimat Inhalation. Docusate Sodium Oral 240 mg, daily (2 bottles from 11-18-15; 12-17-15). Ergocalciferol Oral. FerrouSul Oral. Insulin Regular Human Injection sliding scale 2x/day. Lantus Subcutaneous 20 units , at bedtime. --09:54 Marcial Hargrove R.N. Levothyroxine Sodium Oral. LORazepam Oral. Medroxyprogesterone Acetate Intramuscular. Methadone HCl Oral 125mg daily taken at 0900 . Senna Laxative Oral 1-2 tabs, daily (2 bottles 11-18-15; 12-17-15). Sennosides Oral. Sevelamer Carbonate Oral. Simvastatin Oral 40 mg, daily (1 bottle dated 11-19-15). Vit d 1000 units, daily (3 bottles 11-18; 12-17-15; 01-17-16). --:54 Marcial Hargrove R.N. Metoprolol Succinate ER Oral. --:54 Marcial Hargrove R.N. Allergies Augmentin. Codeine. Compazine. Darvocet. Inapsine. Phenergan. (muscles twitch) Reglan. --09:54 Marcial Hargrove R.N. Toradol. Tramadol. Vistril. Zofran. (headache) --09:54 Marcial Hargrove R.N. History Arrived by EMS, and (Med[facility] 48). This started just prior to arrival. 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 SOCIAL HX: Former smoker, end date 07/2016 (cigarette). History of drug use: marijuana. (daily). No alcohol use. ABUSE ASSESSMENT: No report of abuse. --:57 Marcial Hargrove R.N. PROBLEMS: Anxiety Reaction. Kidney failure. Substance Abuse. Hyperglycemia. Hyperkalemia. Renal Failure. Hematuria. Tension-Type Headache. Chronic Headache. Abscess. Renal Insufficiency. Cellulitis. Atypical Chest Pain. Gastroparesis. Contusion. Fall. Headache. Migraine Headache. Gastroesophageal Reflux. Narcotic Withdrawal. UTI - Urinary Tract Infection. Vomiting. Abdominal Pain. Diabetes Mellitus. Hypertension. --:56 Marcial Hargrove R.N. ADDITIONAL SURGERIES: Ankle. CABG x3. Incision and drainage of abscess. Oophorectomy. Shoulder Surgery. Sinus Surgery. --:56 Marcial Hargrove R.N. Interventions ID band on patient. To treatment room. --09:57 Marcial Hargrove R.N. PHYSICAL ASSESSMENT late entry -09:50. To room via stretcher. ( Right chest HD access port.). GENERAL / NEURO / PSYCH: Alert. Oriented X 4. Appears in no acute distress. HEENT: Mucous membranes are pink. RESPIRATORY: Respirations not labored. Chest nontender. Breath sounds within normal limits. CVS: Normal sinus rhythm noted. Heart sounds within normal limits. Pulses within normal limits. Capillary refill less than 2 seconds. GI / : Abdomen soft and nontender. EXTREMITIES: No lower extremity edema. SKIN: Skin is warm and dry. Abnormal skin turgor. Skin is non-tender. ( Sternal incision healing well s/p CABG). --10:58 Marcial Hargrove R.N. NURSING PROGRESS NOTES 09:47 10/29/2016 Site #1 started prior to arrival by EMS via IV in the left forearm with an 20g angiocath, with aseptic technique and good blood return; one attempt. --10:54 Marcial Hargrove R.N. 10:10/29/2016 Metoprolol PO Tablets 50 mg given. Allergies verified and confirmed 5 rights. --10:12 Marcial Hargrove R.N. 10:10/29/2016 Site #1 removed upon discharge. --10:54 Marcial Hargrove R.N. 10:07 10/29/2016 Metoprolol PO Response: no adverse reaction. --10:53 Marcial Hargrove R.N. DISPOSITION / DISCHARGE Departure time: 1007. --10:12 Marcial Hargrove R.N. 09:47 10/29/16. BP: 162/109. HR: 102. RR: 20. O2 saturation: 100% on room air. Temp: 99 F (tympanic). Pain level now: 0/10. --10:12 Marcial Hargrove R.N. Locked/Released at 10/29/2016 10:59 by Marcial Hargrove R.N.
--- NOTE | 2016-10-29 10:01 | ED ORDER SUMMARY ---
..... Patient: ADI RICO OrderSheet [facility] VisitID: [id number] [address] [place] [address] 46y, F Registration Date/Time: 10/29/2016 ORDER SHEET Weight: 68.0 kg (stated) Allergies: Augmentin, Codeine, Compazine, Darvocet, Inapsine, Phenergan, Reglan, Toradol, Tramadol, Vistril, Zofran GENERAL ORDERS: MEDICATION ORDERS: Metoprolol PO 50 mg (HIGH ALERT MEDICATION, NOW) (09:59 10/29/2016 Nadege DALAL) (10:12 Megha Spring) IV FLUIDS: ORDER SHEET NOTES: [Electronically signed by Marcial Hargrove R.N. (10:59 10/29/2016)] [Electronically signed by Markell Joe MD (08:38 11/01/2016)] [Electronically locked/signed by Marcial Hargrove R.N. (10:59 10/29/2016)]
--- NOTE | 2016-11-01 08:38 | ED MAR SUMMARY ---
..... Medication Administration Record [facility] [address] [place] [address] Patient: ADI RICO Visit ID: [id number] 46y, F Weight: 68.0 kg Height/Length: 66 in BMI: 24.2 ALLERGIES: Augmentin, Codeine, Compazine, Darvocet, Inapsine, Phenergan, Reglan, Toradol, Tramadol, Vistril, Zofran Given 10:05 10/29/2016 Marcial Hargrove R.N. Medication Administered: METOPROLOL [PO], Dose: 50 mg Tablets PO. Medication Ordered: Metoprolol PO 50 mg (HIGH ALERT MEDICATION, NOW).
--- NOTE | 2016-11-01 08:38 | ED MED RECONCILIATION SUMMARY ---
Patient: ADI RICO Medication Reconciliation Report [facility] VisitID: [id number] [place] [address] 46y, F Registration Date/Time: 10/29/2016 Weight: 68.0 kg Height/Length: 66 in. BMI: 24.2 ALLERGIES: Augmentin, Codeine, Compazine, Darvocet, Inapsine, Phenergan, Reglan, Toradol, Tramadol, Vistril, Zofran The patient's Home Medications are listed below: THE FOLLOWING MEDICATIONS NEED TO BE RECONCILED: Albuterol Sulfate Inhalation ALPRAZolam Oral Aspirin Low Dose Oral Ativan Oral 1 mg, 4x a day, PRN migraines Atorvastatin Calcium Oral B Complete Oral Combivent Respimat Inhalation Docusate Sodium Oral 240 mg, daily, 2 bottles from 11-18-15; 12-17-15 Ergocalciferol Oral FerrouSul Oral Insulin Regular Human Injection sliding scale 2x/day Lantus Subcutaneous 20 units , at bedtime Levothyroxine Sodium Oral LORazepam Oral Medroxyprogesterone Acetate Intramuscular Methadone HCl Oral 125mg daily taken at 0900 Metoprolol Succinate ER Oral Senna Laxative Oral 1-2 tabs, daily, 2 bottles 11-18-15; 12-17-15 Sennosides Oral Sevelamer Carbonate Oral Simvastatin Oral 40 mg, daily, 1 bottle dated 11-19-15 Vit d 1000 units, daily, 3 bottles 11-18; 12-17-15; 01-17-16 The source(s) of the original Home Medication information: Not obtained. The following Medications were given to the patient in the Emergency Department: Metoprolol [PO] PO 50 mg, administered: 10/29/2016 10:05:00 AM The following Medications were prescribed to the patient: None.
--- NOTE | 2016-11-01 08:38 | ED DISCHARGE INSTRUCTIONS ---
Patient: ADI RICO General Instructions [facility] VisitID: [id number] [place] [address] 46y, F Registration Date/Time: 10/29/2016 Paroxysmal supraventricular tachycardia INSTRUCTIONS (YOU NEED TO TAKE YOUR METOPORLOL FILL YOUR RX TODAY TAKE IT TONIGHT). Follow-up: Follow up with your doctor in three days. Reason for referral: Heart rhythm problem. Understanding of the discharge instructions verbalized by patient. ADDITIONAL INFORMATION Arrhythmia Electrical impulses cause the normal heart to beat 60 to 100 times a minute. These impulses come from a natural pacemaker deep inside the heart muscle. Each impulse causes the heart muscle to contract. This causes the blood to flow through the heart and out to the tissues and organs of your body. An arrhythmia is a change from the normal speed or pattern of these electrical impulses. This can cause the heart to beat too fast (tachycardia); or too slow (bradycardia); or in an unsteady pattern (irregular rhythm). Symptoms of arrhythmias Different people experience arrhythmias differently. Sometimes they may not have symptoms, but just notice a change in their pulse. Symptoms can include: Fluttering feeling in the chest Shortness of breath Chest pain or pressure Lightheadedness or dizziness Fainting or nearly fainting Palpitations Tiredness, fatigue, or weakness Causes of arrhythmias Arrhythmias are most often due to heart disease such as: Coronary artery disease (arteriosclerosis) Disease of the heart valves Enlarged heart High blood pressure Heart failure Other causes ofarrhythmia include: Certain medicines (such as asthma inhalers and decongestants) Some herbal supplements Cardiac stimulant drugs (such as cocaine, amphetamine, diet pills, certain decongestant cold medicines, caffeine, and nicotine) Excessive alcohol use Medical conditions such as thyroid disease, anemia, anxiety, and panic disorder Arrythmias can often be prevented. The cause and type of arrhythmia determines the best treatment. Sometimes your doctor may want to monitor your heart rate over a 24-hour period or longer. This can help identify the cause of your arrhythmia and find the best treatment. This can be done with a Holter monitor,a portable EKG recording device attached by wires to your chest. You can carry this with you as you perform your routine activities during the monitoring period. Home care Avoid cardiac stimulants (such as cocaine, amphetamine, diet pills, certain decongestant cold medicines, caffeine, and nicotine). If you smoke, stop smoking. Contact your doctor or a local stop-smoking program for help. Tell your doctor about any prescription, [id number] or herbal medicines you take. These may be affecting your heart rhythm. Follow-up care Follow up with your health care provider or as advised by our staff. If a Holter monitor has been recommended, contact the cardiologistyou have been referred toas soon as you canpick up the device. Other outpatient tests may also be arranged for you at that time. Call 911 This is the fastest and safest way to get to the emergency department. The paramedics can also start treatment on the way to the hospital, if needed. Don'twait until your symptoms are severe to call 911. Other reasons to call 911 besides chest pain include: Chest, shoulder, arm, neck, or back pain Shortness of breath Feeling lightheaded, faint, or dizzy Rapid heart beat Slower than usual heart rate compared to your normal Angina withweakness, dizziness, fainting, heavy sweating, nausea, or vomiting Extreme drowsiness, or confusion Weakness of an arm or leg or one side of the face Difficulty with speech or vision When to seek medical care Remember, things are not always like they are on TV. Sometimes it is not so obvious. You may only feel weak or just "not right." If it is not clear or if you have any doubt, call for advice. Seek help for chest pain, or it feels different from usual, even if your symptoms are mild. Do not drive yourself. Have someone else drive. If no one can drive you, call 911. If your doctor has given you medicines to take when you have symptoms, take them, but do not delay getting help while trying to find them. Do not delay. Fast diagnosis and treatment can prevent or limit the amount of heart damage during a heart attack or stroke. Do not go to your doctor's ofice or a clinic because they will not be able to provide all of the testing or treatment required for this condition. You have been given the following additional information: Arrhythmia, Unspecified (Electronically signed by Markell Joe MD 11/01/2016 8:38)
--- NOTE | 2016-11-01 08:38 | ED MAR SUMMARY ---
..... Medication Administration Record [facility] [address] [place] [address] Patient: ADI RICO Visit ID: [id number] 46y, F Weight: 68.0 kg Height/Length: 66 in BMI: 24.2 ALLERGIES: Augmentin, Codeine, Compazine, Darvocet, Inapsine, Phenergan, Reglan, Toradol, Tramadol, Vistril, Zofran Given 10:05 10/29/2016 Marcial Hargrove R.N. Medication Administered: METOPROLOL [PO], Dose: 50 mg Tablets PO. Medication Ordered: Metoprolol PO 50 mg (HIGH ALERT MEDICATION, NOW).
--- NOTE | 2016-11-01 08:38 | ED MED RECONCILIATION SUMMARY ---
Patient: ADI RICO Medication Reconciliation Report [facility] VisitID: [id number] [place] [address] 46y, F Registration Date/Time: 10/29/2016 Weight: 68.0 kg Height/Length: 66 in. BMI: 24.2 ALLERGIES: Augmentin, Codeine, Compazine, Darvocet, Inapsine, Phenergan, Reglan, Toradol, Tramadol, Vistril, Zofran The patient's Home Medications are listed below: THE FOLLOWING MEDICATIONS NEED TO BE RECONCILED: Albuterol Sulfate Inhalation ALPRAZolam Oral Aspirin Low Dose Oral Ativan Oral 1 mg, 4x a day, PRN migraines Atorvastatin Calcium Oral B Complete Oral Combivent Respimat Inhalation Docusate Sodium Oral 240 mg, daily, 2 bottles from 11-18-15; 12-17-15 Ergocalciferol Oral FerrouSul Oral Insulin Regular Human Injection sliding scale 2x/day Lantus Subcutaneous 20 units , at bedtime Levothyroxine Sodium Oral LORazepam Oral Medroxyprogesterone Acetate Intramuscular Methadone HCl Oral 125mg daily taken at 0900 Metoprolol Succinate ER Oral Senna Laxative Oral 1-2 tabs, daily, 2 bottles 11-18-15; 12-17-15 Sennosides Oral Sevelamer Carbonate Oral Simvastatin Oral 40 mg, daily, 1 bottle dated 11-19-15 Vit d 1000 units, daily, 3 bottles 11-18; 12-17-15; 01-17-16 The source(s) of the original Home Medication information: Not obtained. The following Medications were given to the patient in the Emergency Department: Metoprolol [PO] PO 50 mg, administered: 10/29/2016 10:05:00 AM The following Medications were prescribed to the patient: None.
== END 2016-10-29 10:07 | disposition home or self-care (01) ==
LOC: ED SRH 09:44
DX: I47.1 Supraventricular tachycardia (principal); K21.9 Gastro-esophageal reflux disease without esophagitis; E11.9 Type 2 diabetes mellitus without complications; I10 Essential (primary) hypertension; Z79.82 Long term (current) use of aspirin; Z79.891 Long term (current) use of opiate analgesic; Z79.4 Long term (current) use of insulin; Z79.899 Other long term (current) drug therapy; Z87.891 Personal history of nicotine dependence; Z88.1 Allergy status to other antibiotic agents

== ENCOUNTER 2016-11-07 06:38 | Emergency (ER) | payer OTHER ==
--- NOTE | 2016-11-07 10:07 | DIAGNOSTIC IMAGING REPORT ---
PROCEDURE: XR CHEST 1 VIEW INDICATION: CP TECHNIQUE: Portable AP view 08:07 a.m. COMPARISON: Chest 09/24/2016 FINDINGS: CABG and median sternotomy. Heart size and mediastinum are normal. Resolved pulmonary vascular congestion and interstitial edema. Stable double lumen right IJ catheter. Bony thorax is unremarkable. IMPRESSION: 1. No acute disease 2. Double lumen right IJ catheter in satisfactory position
--- NOTE | 2016-11-07 10:31 | ED ORDER SUMMARY ---
..... Patient: ADI RICO OrderSheet [facility] VisitID: [id number] [address] [place], [place] [id number] 46y, F Registration Date/Time: 11/07/2016 ORDER SHEET Weight: 64.4 kg (measured) Allergies: Augmentin, Codeine, Compazine, Darvocet, Inapsine, Phenergan, Reglan, Toradol, Tramadol, Vistril, Zofran GENERAL ORDERS: Chest 1V Urgent (07:49 11/07/2016 Marcello Cerna) (Ack 8:24 Mono) (8:25 MWinterer R.N.) UA-Culture if indicated Urgent (:50 11/07/2016 Marcello Cerna) (8:22 KWilliams R.N.) (Ack 8:24 Mono) PT with INR Urgent (07:50 11/07/2016 Marcello Cerna) (8:21 KWilliams R.N.) (Ack 8:24 Mono) PTT Urgent (07:50 11/07/2016 Marcello Cerna) (8:21 KWilliams R.N.) (Ack 8:24 Mono) Cardiac Panel Stat (:50 11/07/2016 Marcello Cerna) (8:21 KWilliams R.N.) (Ack 8:24 Mono) BNP Urgent (07:50 11/07/2016 Marcello Cerna) (8:21 KWilliams R.N.) (Ack 8:24 Mono) Urine Drug Screen Urgent (07:50 11/07/2016 Marcello Cerna) (8:22 KWilliams R.N.) (Ack 8:24 Mono) Urine Urgent (07:50 11/07/2016 Marcello Cerna) (8:22 KWilliams R.N.) (Ack 8:24 Mono) Magnesium Urgent (07:50 11/07/2016 Marcello Cerna) (8:21 KWilliams R.N.) (Ack 8:24 Mono) EKG - ER Stat (07:50 11/07/2016 Marcello Cerna) (7:51 MWinterer R.N.) Acetone, Serum Urgent (08:57 11/07/2016 Marcello Cerna) (Ack 9:01 OHernandez) (9:09 MWinterer R.N.) MEDICATION ORDERS: NitroGLYCERIN Paste Topical 1 in. (NOW, to CW) (07:01 11/07/2016 Marcello Cerna) (7:08 HSoule) Insulin Reg Subcut 12 units (HIGH ALERT MEDICATION, NOW) (09:58 11/07/2016 Marcello Cerna) (Ack 10:23 MWinterer R.N.) (10:29 MWinterer R.N.) IV FLUIDS: Lopressor IV 5 mg (HIGH ALERT MEDICATION, NOW) (07:29 11/07/2016 Marcello Cerna) (Ack 7:30 MWinterer R.N.) (7:36 MWinterer R.N.) IV Saline Lock (07:50 11/07/2016 Marcello Cerna) (7:51 MWinterer R.N.) Lasix IV 40 mg (NOW) (10:30 11/07/2016 Marcello Cerna) (Ack 10:30 MWinterer R.N.) (10:48 MWinterer R.N.) Lopressor IV 5 mg (HIGH ALERT MEDICATION, NOW) (10:36 11/07/2016 Marcello Cerna) (Ack 10:38 MWinterer R.N.) (10:48 MWinterer R.N.) ORDER SHEET NOTES: [Electronically signed by Dorita Frank R.N. (14:38 11/07/2016)] [Electronically signed by Sathya Rodriguez Dr. (20:44 11/07/2016)] [Electronically locked/signed by Dorita Frank R.N. (14:38 11/07/2016)]
--- NOTE | 2016-11-07 10:31 | ED CLINICAL REPORT ---
Clinical Report - Physicians/Mid Levels [facility] [address] [place] [address] 11/07/2016 6:38 Patient: ADI RICO Time Seen: 06:47; initial patient contact. Arrived- By private vehicle. Historian- patient. HISTORY OF PRESENT ILLNESS Chief Complaint: PALPITATIONS. Modifying factors. Not worsened by anything. Not relieved by anything. This started 3 days ago and is still present (persistent). It was gradual in onset and has been constant. It is described as a fast and pounding heart beat. No chest pain or discomfort, difficulty breathing, sweating episodes or fainting episodes. No dizziness. Similar symptoms previously: Many times. Recent medical care: Not recently seen/assessed. REVIEW OF SYSTEMS No fever. She has had chills. All systems otherwise negative, except as recorded above. PAST HISTORY Paroxysmal Supraventricular Tachycardia. Anxiety Reaction. Kidney failure. Substance Abuse. Hyperglycemia. Hyperkalemia. Renal Failure. Hematuria. Tension-Type Headache. Chronic Headache. Abscess. Renal Insufficiency. Cellulitis. Atypical Chest Pain. Gastroparesis. Contusion. Fall. Tetanus Status. Headache. Migraine Headache. Immunizations. Gastroesophageal Reflux. Narcotic Withdrawal. LNMP - Last Normal Menstrual Period. UTI - Urinary Tract Infection. Vomiting. Abdominal Pain. Diabetes Mellitus. Hypertension. ADDITIONAL SURGERIES: Ankle. CABG x3 September Incision and drainage of abscess. Oophorectomy. Shoulder Surgery. Sinus Surgery. Medications: Albuterol Sulfate Inhalation. ALPRAZolam Oral. Aspirin Low Dose Oral. Ativan Oral 1 mg, 4x a day (PRN migraines). Atorvastatin Calcium Oral. B Complete Oral. Combivent Respimat Inhalation. Docusate Sodium Oral 240 mg, daily (2 bottles from 11-18-15; 12-17-15). Ergocalciferol Oral. FerrouSul Oral. Insulin Regular Human Injection sliding scale 2x/day. Lantus Subcutaneous 20 units , at bedtime. Levothyroxine Sodium Oral. LORazepam Oral. Medroxyprogesterone Acetate Intramuscular. Methadone HCl Oral 125mg daily taken at 0900 . Metoprolol Succinate ER Oral. Senna Laxative Oral 1-2 tabs, daily (2 bottles 11-18-15; 12-17-15). Sennosides Oral. Sevelamer Carbonate Oral. Simvastatin Oral 40 mg, daily (1 bottle dated 11-19-15). Vit d 1000 units, daily (3 bottles -16; 12-17-15; 01-17-16). Allergies: Augmentin. Codeine. Compazine. Darvocet. Inapsine. Phenergan. (muscles twitch) Reglan. Toradol. Tramadol. Vistril. Zofran. (headache). SOCIAL HISTORY Former smoker. History of drug use: marijuana. Is a recovering addict. No alcohol use. ADDITIONAL NOTES The nursing notes have been reviewed. PHYSICAL EXAM Vital Signs: 11/07/2016 06:41 BP: 201/122. HR: 98. RR: 20. O2 saturation: 100%. Pain level now: 0/10. Have been reviewed. Hypertensive. Heart rate normal. Respiratory rate normal. Temperature normal. Oxygen saturation normal. Appearance: Alert. Oriented X3. Patient in moderate distress. Eyes: Eyes normal inspection. ENT: Pharynx normal. CVS: Normal heart rate and rhythm. Heart sounds normal. Respiratory: No respiratory distress. Breath sounds normal. Abdomen: Soft and nontender. Bowel sounds normal. Skin: Skin warm and dry. Normal skin color. Extremities: No calf tenderness. No lower extremity edema. Neuro: Oriented X 3. LABS, X-RAYS, AND EKG EKG: EKG time: (0650). No acute process. No acute ischemia. Normal sinus rhythm. Rate: 98. Normal P waves. Normal MADELYN. Normal QRS complex. Normal axis. Normal ST and T waves. Prolonged QTc (474). Prior EKG unavailable. The study has been interpreted contemporaneously by me. The study has been independently viewed by me. The EKG appears to be a good tracing. Interpretation time: 0650. Chest X-ray: No acute disease. Normal lung markings present. No infiltrate. (HD catheter in R subclavian w/ tip appropriately in mid SVC). Views: AP. Technique: good. The X-rays were independently viewed by me and interpreted contemporaneously by me. Laboratory Tests: UA-Culture if indicated: (TO: 11/07/2016 08:05) ( MsgRcvd 11/07/2016 08:32) Final results Test Result Flag Units (Reference) URINE COLOR YELLOW URINE APPEARANCE CLEAR URINE GLUCOSE 3+ (NEGATIVE) URINE BILIRUBIN NEGATIVE (NEGATIVE) URINE KETONE TRACE (NEGATIVE) URINE SPECIFIC GRAVITY 1.020 (1.010-1.030) URINE PH 8.0 (5.0-8.0) URINE PROTEIN 3+ (NEGATIVE) URINE UROBILINOGEN 0.2 EU/dL (0.2-1.0) URINE NITRITE NEGATIVE (NEGATIVE) URINE BLOOD 1+ (NEGATIVE) URINE LEUK ESTERASE NEGATIVE (NEGATIVE) URINE RBC 1-3 rbc/hpf (0-1) URINE WBC 3-5 wbc/hpf (0-1) URINE EPITHELIAL CELLS 3-5 EPI/hpf (0-5) URINE BACTERIA FEW (1+) (NONE SEEN) URINE COMMENT CULT NOT INDICATED URINE CULTURES ARE SET-UP BASED ON THE FOLLOWING CRITERIA:POSITIVE NITRITEPOSITIVE LEUKOCYTE ESTERASEGREATER THAN 10 WHITE BLOOD CELLSMODERATE (2+) OR GREATER BACTERIA Urine: (TO: 11/07/2016 08:05) ( [facility] 11/07/2016 08:27) Final results Test Result Flag Units (Reference) URINE NEGATIVE CBC w Diff: (TO: 11/07/2016 07:25) ( [facility] 11/07/2016 08:39) Final results Test Result Flag Units (Reference) WHITE BLOOD COUNT 12.7 H K/uL (4.5-11.5) RED BLOOD COUNT 5.24 H M/uL (4.00-5.20) HEMOGLOBIN 15.8 gm/dL (12.0-16.0) HEMATOCRIT 48.9 H % (36.0-46.0) MEAN CELL VOLUME 93 fL (80-100) MEAN CORPUSCULAR HGB 30 pg (26-34) MEAN CORPUSCULAR HGB CONC 32 g/dL (31-37) RED CELL DISTRIBUTION WIDTH 16.0 H % (11.6-14.8) PLATELET COUNT 285 K/uL (150-400) NEUTROPHIL % 80.9 H % (50-75) LYMPH % 13.3 L % (25-40) MONO % 5.4 % (3-14) EOSINOPHIL % 0 % (0-4) BASOPHIL % 0.4 % (0-2) PT with INR: (TO: 11/07/2016 07:25) ( [facility] 11/07/2016 08:40) Final results Test Result Flag Units (Reference) INR 0.9 (0.8-1.2) Low Intensity Therapy: INR 1.5-2.0 PT range 18.5-23.1Mod.Intensity Therapy: INR 2.0-3.0 PT range 23.1-31.5High Intensity Therapy: INR 2.5-3.5 PT range 27.4-35.5High Intensity Therapy 2: INR 3.0-4.0 PT range 31.5-39.3 APTT 23 L SECONDS (24-34) BNP: (TO: 11/07/2016 07:25) ( [facility] 11/07/2016 09:43) Final results Test Result Flag Units (Reference) B-TYPE NATRIURETIC PEPTIDE 1150 H pg/ml (5-100) Acetone, Serum: (TO: 11/07/2016 07:25) ( [facility] 11/07/2016 09:09) Final results Test Result Flag Units (Reference) ACETONE, SERUM QUALITATIVE NEGATIVE (NEGATIVE) Urine Drug Screen: (TO: 11/07/2016 08:05) ( [facility] 11/07/2016 08:46) Final results Test Result Flag Units (Reference) AMPHETAMINE/METHAMPHETAMINE NEGATIVE (NEGATIVE) BARBITURATE NEGATIVE (NEGATIVE) BENZODIAZEPINE POSITIVE H (NEGATIVE) CANNABINOID POSITIVE H (NEGATIVE) COCAINE NEGATIVE (NEGATIVE) ECSTASY NEGATIVE (NEGATIVE) METHADONE NEGATIVE (NEGATIVE) OPIATE NEGATIVE (NEGATIVE) The urine drug screen is a qualitative screening test fordrug overdose and abuse. All screen results should beconsidered as presumptive.Drugs screened for are as follows:BenzodiazepinesCocaineAmphetamines/MetamphetaminesTHC (Tetrahydrocannabinol)OpiatesBarbituratesEcstasyMethadonePositive results are unconfirmed. For confirmation, notifythe lab for the specimen to be sent to the reference lab.All confirmations must be performed by a differentmethodology.The ingestion of natural herbal and plant productscontaining Ephedra/Ephedra metabolites can produce in urineone or more substances capable of cross reacting withamphetamine/methamphetamine immunoassays. These testsprovide a preliminary result only. A more specificalternative chemical method must be used to obtain aconfirmed analytical result. CHEM 13 PANEL: (TO: 11/07/2016 07:25) ( MsgRcvd 11/07/2016 09:01) Final results Test Result Flag Units (Reference) GLUCOSE 444 H mg/dL (70-110) BUN 53 H mg/dL (7-18) CREATININE 7.9 *H mg/dL (0.6-1.3) CRITICAL RESULTS CALLEDCalled to MARIANA DUFFY RN 11/07/16 0900Were 2 patient identifiers used? YWas the result read back? Y Estimated GFR 5.76 mL/min Estimated GFR- 6.98 mL/min Note: Persistent reduction over 3 months in eGFR<60 mL/min/1.73 m2 defines CKD. Patients with eGFR values>=60 mL/min/1.73 m2 may also have CKD if evidence ofpersistent proteinuria. Additional information may be foundat www.kidney.org. SODIUM 129 L mmol/L (136-145) POTASSIUM 4.7 mmol/L (3.5-5.1) CHLORIDE 91 L mmol/L (98-107) CARBON DIOXIDE 20 L mmol/L (21-32) CALCIUM 9.5 mg/dL (8.5-10.1) TOTAL PROTEIN 8.2 g/dL (6.4-8.2) ALBUMIN 4.1 g/dL (3.3-5.0) BILIRUBIN, TOTAL 1.1 H mg/dL (0.0-1.0) ALKALINE PHOSPHATASE 125 H U/L (46-116) AST (SGOT) 20 U/L (15-37) ALT (SGPT) 21 U/L (12-78) MAGNESIUM 3.1 H mg/dL (1.8-2.4) CPK 121 U/L (24-260) TROPONIN I 0.05 ng/mL (0.00-1.5) TROPONIN REFERENCE RANGE:<0.1 NEGATIVE0.1-1.5 INDETERMINANT>1.5 POSITIVE [id number]: (TO: 11/07/2016 07:25) ( MsgRcvd 11/07/2016 08:13) Final results Test Result Flag Units (Reference) PHOSPHORUS 5.8 H mg/dL (2.5-4.9) . PROGRESS AND PROCEDURES Critical care performed (90 minutes). Time is exclusive of separately billable procedures. Time includes: direct patient care, patient reassessment, coordination of patient care, interpretation of data (laboratory data, pulse oximetry, chest xrays and prior electrocardiograms), review of patient's medical records, medical consultation, family consultation regarding treatment decisions and documentation of patient care. The patient required critical care due to the acute impairment of vital organ systems (cardiovascular, endocrine, renal, metabolic and central nervous system) and a high probability of imminent deterioration. Multiple urgent interventions were required to prevent sudden deterioration. Discussed case with hospitalist, (call returned 10:30 Dr. Nadiya Gorman accepts pt.). Disposition: Benefits, risks and alternatives to transfer explained to patient. Transferred to [facility]. Condition: good. CLINICAL IMPRESSION Severe chronic renal failure- end stage disease. Palpitations. Moderate hypermagnesemia. Uncontrolled essential hypertension. Mild hyponatremia. INSTRUCTIONS Follow-up: Blood pressure screening was not performed during this visit because the patient has an active diagnosis of hypertension. (Electronically signed by Sathya Rodriguez Dr. 11/07/2016 20:44)
--- NOTE | 2016-11-07 10:31 | ED ORDER SUMMARY ---
..... Patient: ADI RICO OrderSheet [facility] VisitID: [id number] [address] [place], [place] [id number] 46y, F Registration Date/Time: 11/07/2016 ORDER SHEET Weight: 64.4 kg (measured) Allergies: Augmentin, Codeine, Compazine, Darvocet, Inapsine, Phenergan, Reglan, Toradol, Tramadol, Vistril, Zofran GENERAL ORDERS: Chest 1V Urgent (07:49 11/07/2016 Marcello Cerna) (Ack 8:24 Mono) (8:25 MWinterer R.N.) UA-Culture if indicated Urgent (:50 11/07/2016 Marcello Cerna) (8:22 KWilliams R.N.) (Ack 8:24 Mono) PT with INR Urgent (07:50 11/07/2016 Marcello Cerna) (8:21 KWilliams R.N.) (Ack 8:24 Mono) PTT Urgent (07:50 11/07/2016 Marcello Cerna) (8:21 KWilliams R.N.) (Ack 8:24 Mono) Cardiac Panel Stat (:50 11/07/2016 Marcello Cerna) (8:21 KWilliams R.N.) (Ack 8:24 Mono) BNP Urgent (07:50 11/07/2016 Marcello Cerna) (8:21 KWilliams R.N.) (Ack 8:24 Mono) Urine Drug Screen Urgent (07:50 11/07/2016 Marcello Cerna) (8:22 KWilliams R.N.) (Ack 8:24 Mono) Urine Urgent (07:50 11/07/2016 Marcello Cerna) (8:22 KWilliams R.N.) (Ack 8:24 Mono) Magnesium Urgent (07:50 11/07/2016 Marcello Cerna) (8:21 KWilliams R.N.) (Ack 8:24 Mono) EKG - ER Stat (07:50 11/07/2016 Marcello Cerna) (7:51 MWinterer R.N.) Acetone, Serum Urgent (08:57 11/07/2016 Marcello Cerna) (Ack 9:01 OHernandez) (9:09 MWinterer R.N.) MEDICATION ORDERS: NitroGLYCERIN Paste Topical 1 in. (NOW, to CW) (07:01 11/07/2016 Marcello Cerna) (7:08 HSoule) Insulin Reg Subcut 12 units (HIGH ALERT MEDICATION, NOW) (09:58 11/07/2016 Marcello Cerna) (Ack 10:23 MWinterer R.N.) (10:29 MWinterer R.N.) IV FLUIDS: Lopressor IV 5 mg (HIGH ALERT MEDICATION, NOW) (07:29 11/07/2016 Marcello Cerna) (Ack 7:30 MWinterer R.N.) (7:36 MWinterer R.N.) IV Saline Lock (07:50 11/07/2016 Marcello Cerna) (7:51 MWinterer R.N.) Lasix IV 40 mg (NOW) (10:30 11/07/2016 Marcello Cerna) (Ack 10:30 MWinterer R.N.) (10:48 MWinterer R.N.) Lopressor IV 5 mg (HIGH ALERT MEDICATION, NOW) (10:36 11/07/2016 Marcello Cerna) (Ack 10:38 MWinterer R.N.) (10:48 MWinterer R.N.) ORDER SHEET NOTES: [Electronically signed by Dorita Frank R.N. (14:38 11/07/2016)] [Electronically signed by Sathya Rodriguez Dr. (20:44 11/07/2016)] [Electronically locked/signed by Dorita Frank R.N. (14:38 11/07/2016)]
--- NOTE | 2016-11-07 10:31 | ED NURSING NOTES ---
Clinical Report - Nurses [facility] [address] [place] [address] 11/07/2016 6:38 Patient: ADI RICO TRIAGE Triage time 06:41 Nov 07 2016. Acuity: LEVEL 2. Chief Complaint: ("Feel like I am going to "). 06:47 11/07/16. SEPSIS SCREEN: Sepsis Screen: negative. Negative (no infection suspected/documented). EULOGIO COMA SCORE: Eulogio Coma Scale: 15- eyes open spontaneously (4); best verbal response- oriented x 4 (5); best motor response- obeys commands (6). --06:47 Sylvia Sutton 06:41 11/07/16. BP: 201/122. HR: 98. RR: 20. O2 saturation: 100% on room air. Pain level now: 0/10. --06:47 Sylvia Sutton. Weight: 64.4 kg measured. Height/Length: 66 inches Per Patient. BMI: 22.9. --06:45 Sylvia Sutton. Medications Albuterol Sulfate Inhalation. ALPRAZolam Oral. Aspirin Low Dose Oral. Ativan Oral 1 mg, 4x a day (PRN migraines). Atorvastatin Calcium Oral. B Complete Oral. Combivent Respimat Inhalation. Docusate Sodium Oral 240 mg, daily (2 bottles from 11-18-15; 12-17-15). Ergocalciferol Oral. FerrouSul Oral. Insulin Regular Human Injection sliding scale 2x/day. Lantus Subcutaneous 20 units , at bedtime. Levothyroxine Sodium Oral. LORazepam Oral. Medroxyprogesterone Acetate Intramuscular. Methadone HCl Oral 125mg daily taken at 0900 . Metoprolol Succinate ER Oral. Senna Laxative Oral 1-2 tabs, daily (2 bottles 11-18-15; 12-17-15). Sennosides Oral. Sevelamer Carbonate Oral. Simvastatin Oral 40 mg, daily (1 bottle dated 11-19-15). Vit d 1000 units, daily (3 bottles 11-18; 12-17-15; 01-17-16). --06:42 HermanMengSylvia. Medication/allergy information source: the patient. --06:47 Herman Sylvia. Allergies Augmentin. Codeine. Compazine. Darvocet. Inapsine. Phenergan. (muscles twitch) Reglan. Toradol. Tramadol. Vistril. Zofran. (headache) --06:42 Sylvia Sutton. History Arrived by private vehicle. Historian: patient. Unaccompanied. Onset. (2 days). ( Patient reports that she feels like she is going to . She reports racing heart and shortness of breath. She reports extensive cardiac history. She reports being very chilled.). PAST MEDICAL HX: Immunizations: up-to-date. SOCIAL HX: History of drug use: marijuana. No alcohol use. No infectious disease exposure. ABUSE ASSESSMENT: No report of abuse. FALL RISK ASSESSMENT: Fall risk assessment completed. No fall risk identified. NUTRITIONAL RISK ASSESSMENT: The nutritional risk assessment revealed no deficiencies. FUNCTIONAL ASSESSMENT: Functional assessment: no impairments noted. LEARNING NEEDS ASSESSMENT: The learning needs assessment revealed no barriers. SKIN INTEGRITY ASSESSMENT: Skin integrity risk assessment completed. No skin integrity risk identified. --06:47 Herman Sylvia. PROBLEMS: Paroxysmal Supraventricular Tachycardia. Anxiety Reaction. Kidney failure. Substance Abuse. Hyperglycemia. Hyperkalemia. Renal Failure. Hematuria. Tension-Type Headache. Chronic Headache. Abscess. Renal Insufficiency. Cellulitis. Atypical Chest Pain. Gastroparesis. Contusion. Fall. Tetanus Status. Headache. Migraine Headache. Immunizations. Gastroesophageal Reflux. Narcotic Withdrawal. LNMP - Last Normal Menstrual Period. UTI - Urinary Tract Infection. Vomiting. Abdominal Pain. Diabetes Mellitus. Hypertension. --06:43 Sylvia Sutton. ADDITIONAL SURGERIES: Ankle. CABG x3. Incision and drainage of abscess. Oophorectomy. Shoulder Surgery. Sinus Surgery. --06:43 Sylvia Sutton. Interventions ID band on patient. To treatment room. --06:47 Sylvia Sutton. PHYSICAL ASSESSMENT 06:47 11/07/16. Ambulatory to room. Patient gowned. GENERAL / NEURO / PSYCH: Alert. Oriented X 4. Appears anxious. HEENT: No facial asymmetry noted. Mucous membranes are pink. RESPIRATORY: Respirations not labored. Breath sounds within normal limits. CVS: Cardiac rhythm: sinus tachycardia; (105). Pulses within normal limits. GI / : Abdomen soft and nontender. SKIN: ( skin cool). --06:47 Sylvia Sutton. NURSING PROGRESS NOTES The initial plan of care for this patient has been created This plan of care was discussed with the patient. Oxygen administered. stock shaper, pulse oximeter and NIBP monitor placed on patient; monitor alarms on. Reassurance given to the patient. Two patient identifiers checked. Call light placed in reach. Side rails up x 1. Bed placed in lowest position. Brakes of bed on. Patient ready for evaluation- chart flagged and ED physician notified. --06:48 Sylvia Sutton EKG time: (06:49 Nov 07 2016). EKG was performed by a nurse and shown to the ED physician. --06:49 Sylvia Sutton 07:08 11/07/2016 NITROGLYCERIN PASTE Topical Paste 1 inch. Applied to the right upper back. Allergies verified and confirmed 5 rights. --07:08 Sylvia Sutton 07:07 11/07/16. BP: 194/106. HR: 97. Additional comments: prior to nitro administration . --07:10 Sylvia Sutton 07:10 11/07/16. BP: 184/95. HR: 96. --07:12 Sylvia Sutton Care transferred and report given (moody CRONIN). --07:14 Sylvia Sutton 07:26 11/07/2016 Site #1 started via IV in the right antecubital space with an 18g angiocath, with aseptic technique and good blood return; two attempts. Blood drawn: rainbow set and cultures x1. Labeled in the presence of the patient and sent to the lab. Saline lock flushed with 10 mL saline (placed with US by MEHRDAD Lawler). --07:26 Moody Frank R.N. 07:27 11/07/16. BP: 189/93. HR: 94. RR: 19. O2 saturation: 99% on room air. --07:28 Moody Frank R.N. 07:36 11/07/2016 Lopressor (Metoprolol Tartrate) IVP 5 mg given over 2 minute(s) via site #1. Allergies verified and confirmed 5 rights. IV patency established. IV site checked: no pain, redness, or swelling. IV flushed thoroughly pre- and post-medication administration. IVP given by RN. --07:36 Moody Frank R.N. 07:38 11/07/16. BP: 188/103. HR: 81. RR: 19. O2 saturation: 100% on room air. --07:38 Moody Frank R.N. 07:44 11/07/16. RESPIRATORY: No respiratory distress present. No respiratory distress. CVS: Denies chest pain. SKIN: Skin is warm and dry. Skin color within normal limits. --07:44 Moody Frank R.N. 08:00 11/07/16. Assisted patient to bathroom and to ambulate; tolerated well. --08:00 Moody Frank R.N. Checked patient name and birthdate: patient confirmed. Instructions provided to collect clean catch urine and patient verbalized understanding. Clean catch urine collected with return of yellow-colored clear urine; sample sent to lab for urinalysis. Specimen labeled in the presence of the patient. --08:12 Moody Frank R.N. 08:11 11/07/16. BP: 167/99. HR: 88. RR: 16. O2 saturation: 100% on room air. --08:12 Moody Frank R.N. 08:58 11/07/16. BP: 176/100. HR: 89. RR: 18. O2 saturation: 96%. --08:59 Modoy Frank R.N. 09:00 11/07/16. Critical value relayed to ED by miles Rivera. Critical value received by MEHRDAD Kevin. Creatinine: 7.9. ED physician notifed of critical value. --09:00 Moody Frank R.N. 10:29 11/07/16. BP: 189/98. HR: 84. RR: 20. O2 saturation: 100% on room air. --10:29 Moody Frank R.N. 10:11/07/2016 Insulin Reg Subcutaneous 12 unit given. Given in the right upper arm. Allergies verified and confirmed 5 rights. --10:29 Moody Frank R.N. 10:30 11/07/16. The patient reports no complaints and she is calm and resting quietly. --10:30 Moody Frank R.N. 10:48 11/07/2016 Lasix IVP 40 mg given over 2 minute(s) via site #1. Allergies verified and confirmed 5 rights. IV patency established. IV site checked: no pain, redness, or swelling. IV flushed thoroughly pre- and post-medication administration. IVP given by RN. --10:48 Moody Frank R.N. 10:48 11/07/2016 Lopressor (Metoprolol Tartrate) IVP 5 mg given over 1 minute(s) via site #1. Allergies verified and confirmed 5 rights. IV patency established. IV site checked: no pain, redness, or swelling. IV flushed thoroughly pre- and post-medication administration. IVP given by RN. --10:48 Moody Frank R.N. 11:11 11/07/16. BP: 180/98. HR: 76. RR: 18. O2 saturation: 98% on room air. --11:12 Moody Frank R.N. 11:57 11/07/16. BP: 186/98. HR: 93. RR: 14. O2 saturation: 100%. --11:57 Moody Frank R.N. ( face sheet faxed to [facility].). --12:08 Veronica Paris, [place] [address] 12:36 11/07/16. ( Pt ambulated to BR..). --12:36 Moody Frank R.N. DISPOSITION / DISCHARGE 12:34 11/07/16. BP: 175/96. HR: 86. RR: 18. O2 saturation: 100% on room air. --12:35 Moody Frank R.N. 12:37 11/07/2016 Site #[address] upon transfer; patent, no pain and no signs of infection or infiltration. Flushed with 10 mL saline; flushes easily. --12:37 Moody Frank R.N. Departure time: 12:40 Nov 07 2016. Transferred to [facility]. Transported via ambulance by nurse with monitor and emergency medications. Report was given to a nurse via a phone call. Report included patient's care, treatment, medications, reviewed medication reconcilliation, and condition (including any recent changes or anticipated changes). All questions were answered. Report was acknowledged and care was transferred. (MEHRDAD Thomas). Patient's personal items include: shirt, pants, coat, socks and shoes; items were placed in belongings bag, given to the patient and transported with the patient. --14:38 Moody Frank R.N. Locked/Released at 11/07/2016 14:38 by Moody Frank R.N.
--- NOTE | 2016-11-07 20:44 | ED MAR SUMMARY ---
..... Medication Administration Record Formerly [facility] [address] [place] [address] Patient: ADI RICO Visit ID: [id number] 46y, F Weight: 64.4 kg Height/Length: 66 in BMI: 22.9 ALLERGIES: Augmentin, Codeine, Compazine, Darvocet, Inapsine, Phenergan, Reglan, Toradol, Tramadol, Vistril, Zofran Given 07:08 11/07/2016 Sylvia Sutton, Medication Administered: NITROGLYCERIN PASTE [TOPICAL], Dose: 1 in. Paste Topical. Medication Ordered: NitroGLYCERIN Paste Topical 1 in. (NOW, to ). Given 07:36 11/07/2016 Dorita Frank R.N. Medication Administered: LOPRESSOR [IVP] (METOPROLOL TARTRATE), Dose: 5 mg IVP over 2 minute(s), Site: #1 right AC. Medication Ordered: Lopressor IV 5 mg (HIGH ALERT MEDICATION, NOW). Given 10:29 11/07/2016 Dorita Frank R.N. Medication Administered: INSULIN REG [SUBCUTANEOUS], Dose: 12 unit Subcutaneous. Medication Ordered: Insulin Reg Subcut 12 units (HIGH ALERT MEDICATION, NOW). Given 10:48 11/07/2016 Dorita Frank R.N. Medication Administered: LASIX [IVP], Dose: 40 mg IVP over 2 minute(s), Site: #1 right AC. Medication Ordered: Lasix IV 40 mg (NOW). Given 10:48 11/07/2016 Dorita Frank R.N. Medication Administered: LOPRESSOR [IVP] (METOPROLOL TARTRATE), Dose: 5 mg IVP over 1 minute(s), Site: #1 right AC. Medication Ordered: Lopressor IV 5 mg (HIGH ALERT MEDICATION, NOW).
--- NOTE | 2016-11-07 20:44 | ED DISCHARGE INSTRUCTIONS ---
Patient: ADI RICO General Instructions [facility] VisitID: [id number] [address] [place] [address] 46y, F Registration Date/Time: 11/07/2016 Severe chronic renal failure- end stage disease. Palpitations. Moderate hypermagnesemia. Uncontrolled essential hypertension. Mild hyponatremia. INSTRUCTIONS Follow-up: Blood pressure screening was not performed during this visit because the patient has an active diagnosis of hypertension. (Electronically signed by Sathya Rodriguez Dr. 11/07/2016 20:44)
--- NOTE | 2016-11-07 20:44 | ED DISCHARGE INSTRUCTIONS ---
Patient: ADI RICO General Instructions [facility] VisitID: [id number] [address] [place] [address] 46y, F Registration Date/Time: 11/07/2016 Severe chronic renal failure- end stage disease. Palpitations. Moderate hypermagnesemia. Uncontrolled essential hypertension. Mild hyponatremia. INSTRUCTIONS Follow-up: Blood pressure screening was not performed during this visit because the patient has an active diagnosis of hypertension. (Electronically signed by Sathya Rodriguez Dr. 11/07/2016 20:44)
--- NOTE | 2016-11-07 20:44 | ED MED RECONCILIATION SUMMARY ---
Patient: ADI RICO Medication Reconciliation Report [facility] VisitID: [id number] [address] [place] [address] 46y, F Registration Date/Time: 11/07/2016 Weight: 64.4 kg Height/Length: 66 in. BMI: 22.9 ALLERGIES: Augmentin, Codeine, Compazine, Darvocet, Inapsine, Phenergan, Reglan, Toradol, Tramadol, Vistril, Zofran The patient's Home Medications are listed below: THE FOLLOWING MEDICATIONS NEED TO BE RECONCILED: Albuterol Sulfate Inhalation ALPRAZolam Oral Aspirin Low Dose Oral Ativan Oral 1 mg, 4x a day, PRN migraines Atorvastatin Calcium Oral B Complete Oral Combivent Respimat Inhalation Docusate Sodium Oral 240 mg, daily, 2 bottles from 11-18-15; 12-17-15 Ergocalciferol Oral FerrouSul Oral Insulin Regular Human Injection sliding scale 2x/day Lantus Subcutaneous 20 units , at bedtime Levothyroxine Sodium Oral LORazepam Oral Medroxyprogesterone Acetate Intramuscular Methadone HCl Oral 125mg daily taken at 0900 Metoprolol Succinate ER Oral Senna Laxative Oral 1-2 tabs, daily, 2 bottles 11-18-15; 12-17-15 Sennosides Oral Sevelamer Carbonate Oral Simvastatin Oral 40 mg, daily, 1 bottle dated 11-19-15 Vit d 1000 units, daily, 3 bottles 11-18; 12-17-15; 01-17-16 The source(s) of the original Home Medication information: patient The following Medications were given to the patient in the Emergency Department: NITROGLYCERIN PASTE [TOPICAL] Topical 1 in., administered: 11/07/2016 7:08:00 AM Lopressor [IVP] IVP 5 mg, administered: 11/07/2016 7:36:00 AM Insulin Reg [Subcutaneous] Subcutaneous 12 unit, administered: 11/07/2016 10:29:00 AM Lasix [IVP] IVP 40 mg, administered: 11/07/2016 10:48:00 AM Lopressor [IVP] IVP 5 mg, administered: 11/07/2016 10:48:00 AM The following Medications were prescribed to the patient: None.
--- NOTE | 2016-11-07 20:44 | ED MED RECONCILIATION SUMMARY ---
Patient: ADI RICO Medication Reconciliation Report [facility] VisitID: [id number] [address] [place] [address] 46y, F Registration Date/Time: 11/07/2016 Weight: 64.4 kg Height/Length: 66 in. BMI: 22.9 ALLERGIES: Augmentin, Codeine, Compazine, Darvocet, Inapsine, Phenergan, Reglan, Toradol, Tramadol, Vistril, Zofran The patient's Home Medications are listed below: THE FOLLOWING MEDICATIONS NEED TO BE RECONCILED: Albuterol Sulfate Inhalation ALPRAZolam Oral Aspirin Low Dose Oral Ativan Oral 1 mg, 4x a day, PRN migraines Atorvastatin Calcium Oral B Complete Oral Combivent Respimat Inhalation Docusate Sodium Oral 240 mg, daily, 2 bottles from 11-18-15; 12-17-15 Ergocalciferol Oral FerrouSul Oral Insulin Regular Human Injection sliding scale 2x/day Lantus Subcutaneous 20 units , at bedtime Levothyroxine Sodium Oral LORazepam Oral Medroxyprogesterone Acetate Intramuscular Methadone HCl Oral 125mg daily taken at 0900 Metoprolol Succinate ER Oral Senna Laxative Oral 1-2 tabs, daily, 2 bottles 11-18-15; 12-17-15 Sennosides Oral Sevelamer Carbonate Oral Simvastatin Oral 40 mg, daily, 1 bottle dated 11-19-15 Vit d 1000 units, daily, 3 bottles 11-18; 12-17-15; 01-17-16 The source(s) of the original Home Medication information: patient The following Medications were given to the patient in the Emergency Department: NITROGLYCERIN PASTE [TOPICAL] Topical 1 in., administered: 11/07/2016 7:08:00 AM Lopressor [IVP] IVP 5 mg, administered: 11/07/2016 7:36:00 AM Insulin Reg [Subcutaneous] Subcutaneous 12 unit, administered: 11/07/2016 10:29:00 AM Lasix [IVP] IVP 40 mg, administered: 11/07/2016 10:48:00 AM Lopressor [IVP] IVP 5 mg, administered: 11/07/2016 10:48:00 AM The following Medications were prescribed to the patient: None.
--- NOTE | 2016-11-07 20:44 | ED MAR SUMMARY ---
..... Medication Administration Record [facility] [address] [place] [address] Patient: ADI RICO Visit ID: [id number] 46y, F Weight: 64.4 kg Height/Length: 66 in BMI: 22.9 ALLERGIES: Augmentin, Codeine, Compazine, Darvocet, Inapsine, Phenergan, Reglan, Toradol, Tramadol, Vistril, Zofran Given 07:08 11/07/2016 Sylvia Sutton, Medication Administered: NITROGLYCERIN PASTE [TOPICAL], Dose: 1 in. Paste Topical. Medication Ordered: NitroGLYCERIN Paste Topical 1 in. (NOW, to ). Given 07:36 11/07/2016 Dorita Frank R.N. Medication Administered: LOPRESSOR [IVP] (METOPROLOL TARTRATE), Dose: 5 mg IVP over 2 minute(s), Site: #1 right AC. Medication Ordered: Lopressor IV 5 mg (HIGH ALERT MEDICATION, NOW). Given 10:29 11/07/2016 Dorita Frank R.N. Medication Administered: INSULIN REG [SUBCUTANEOUS], Dose: 12 unit Subcutaneous. Medication Ordered: Insulin Reg Subcut 12 units (HIGH ALERT MEDICATION, NOW). Given 10:48 11/07/2016 Dorita Frank R.N. Medication Administered: LASIX [IVP], Dose: 40 mg IVP over 2 minute(s), Site: #1 right AC. Medication Ordered: Lasix IV 40 mg (NOW). Given 10:48 11/07/2016 Dorita Frank R.N. Medication Administered: LOPRESSOR [IVP] (METOPROLOL TARTRATE), Dose: 5 mg IVP over 1 minute(s), Site: #1 right AC. Medication Ordered: Lopressor IV 5 mg (HIGH ALERT MEDICATION, NOW).
== END 2016-11-07 12:40 | disposition short-term general hospital (02) ==
LOC: ED SRH 06:38
DX: I12.0 Hypertensive chronic kidney disease with stage 5 chronic kidney disease or end stage renal disease (principal); Z79.4 Long term (current) use of insulin; N18.6 End stage renal disease; R00.2 Palpitations; E83.41 Hypermagnesemia; E87.1 Hypo-osmolality and hyponatremia; E11.9 Type 2 diabetes mellitus without complications; Z79.51 Long term (current) use of inhaled steroids; Z79.82 Long term (current) use of aspirin; Z79.899 Other long term (current) drug therapy

== ENCOUNTER 2016-11-08 17:19 | Emergency (ER) | payer OTHER ==
--- NOTE | 2016-11-08 19:02 | ED CLINICAL REPORT ---
Clinical Report - Physicians/Mid Levels [facility] [address] [place] [address] 11/08/2016 17:19 Patient: ADI RICO Time Seen: 1722. Arrived- By ambulance. Historian- EMS personnel. Physical Exam limited by obtundation and intoxication. HISTORY OF PRESENT ILLNESS Chief Complaint: DRUG OVERDOSE. This occurred today. Toxic symptoms present in ED with drowsiness and obtundation. Single drug taken- methadone. Rescue was likely for this event. The symptoms are described as severe. Similar symptoms previously: None. Recent medical care: The patient was seen recently by a health care provider (transferred to [facility] for cardiac evaluation. left AMA.). REVIEW OF SYSTEMS unable to obtain secondary to patient's condition. PAST HISTORY See nurses notes. SOCIAL HISTORY unable to obtain secondary to patient's condition. FAMILY HISTORY Unable to obtain family medical history due to patient's altered mental status. nable to obtain secondary to patient's condition. ADDITIONAL NOTES The nursing notes have been reviewed. PHYSICAL EXAM Vital Signs: Hypotensive. Oxygen saturation normal. Appearance: Lethargic. Is non-communicative and uncooperative. Eyes: Pupils equal, round and reactive to light. Extraocular movements normal. ENT: Normal ENT inspection. TM's normal. Pharynx normal. Neck: Normal inspection. Neck supple. CVS: Normal heart rate and rhythm. Heart sounds normal. Pulses normal. Respiratory: No respiratory distress. Breath sounds normal. Abdomen: Soft and nontender. No organomegaly. Skin: Skin warm and dry. Normal skin color. No rash. Normal skin turgor. Extremities: Extremities exhibit normal ROM. No lower extremity edema. Neuro: Severely altered mental status: lethargic. Eyes do not open. Best verbal response: disoriented. Best motor response: obeys commands. (gCS of 10). No motor deficit. (unable to test cerebellar function secondary to patient's altered mental status. Patient is uncooperative.). LABS, X-RAYS, AND EKG EKG: No acute ischemia. Normal sinus rhythm. Rate: 86. Normal P waves. Normal MADELYN. Normal QRS complex. Normal axis. Normal ST and T waves and QT. Prolonged QTc (507). Laboratory Tests: CBC w Diff: (TO: 11/08/2016 18:30) ( [facility] 11/08/2016 18:48) Final results Test Result Flag Units (Reference) WHITE BLOOD COUNT 12.9 H K/uL (4.5-11.5) RED BLOOD COUNT 4.71 M/uL (4.00-5.20) HEMOGLOBIN 14.0 gm/dL (12.0-16.0) HEMATOCRIT 43.8 % (36.0-46.0) MEAN CELL VOLUME 93 fL (80-100) MEAN CORPUSCULAR HGB 30 pg (26-34) MEAN CORPUSCULAR HGB CONC 32 g/dL (31-37) RED CELL DISTRIBUTION WIDTH 15.9 H % (11.6-14.8) PLATELET COUNT 218 K/uL (150-400) NEUTROPHIL % 56.5 % (50-75) LYMPH % 34.5 % (25-40) MONO % 8.1 % (3-14) EOSINOPHIL % 0.3 % (0-4) BASOPHIL % 0.6 % (0-2) PT with INR: (TO: 11/08/2016 18:30) ( [facility] 11/08/2016 18:58) Final results Test Result Flag Units (Reference) INR 1.1 (0.8-1.2) Low Intensity Therapy: INR 1.5-2.0 PT range 18.5-23.1Mod.Intensity Therapy: INR 2.0-3.0 PT range 23.1-31.5High Intensity Therapy: INR 2.5-3.5 PT range 27.4-35.5High Intensity Therapy 2: INR 3.0-4.0 PT range 31.5-39.3 APTT 25 SECONDS (24-34) Salicylate Level: (TO: 11/08/2016 18:30) ( [facility] 11/08/2016 19:17) Final results Test Result Flag Units (Reference) SALICYLATE <2.8 L mg/dL (2.8-20) Lactate, Serum: (TO: 11/08/2016 19:10) ( MsgRcvd 11/08/2016 20:10) Final results Test Result Flag Units (Reference) LACTIC ACID 1.9 mmol/L (0.4-2.0) CMP: (TO: 11/08/2016 18:30) ( MsgRcvd 11/08/2016 19:27) Final results Test Result Flag Units (Reference) GLUCOSE 399 H mg/dL (70-110) BUN 47 H mg/dL (7-18) CREATININE 6.9 H mg/dL (0.6-1.3) Estimated GFR 6.83 mL/min Estimated GFR- 8.28 mL/min Note: Persistent reduction over 3 months in eGFR<60 mL/min/1.73 m2 defines CKD. Patients with eGFR values>=60 mL/min/1.73 m2 may also have CKD if evidence ofpersistent proteinuria. Additional information may be foundat www.kidney.org. SODIUM 131 L mmol/L (136-145) POTASSIUM 4.1 mmol/L (3.5-5.1) CHLORIDE 92 L mmol/L (98-107) CARBON DIOXIDE 28 mmol/L (21-32) CALCIUM 8.8 mg/dL (8.5-10.1) TOTAL PROTEIN 6.7 g/dL (6.4-8.2) ALBUMIN 3.3 g/dL (3.3-5.0) BILIRUBIN, TOTAL 0.8 mg/dL (0.0-1.0) ALKALINE PHOSPHATASE 93 U/L (46-116) AST (SGOT) 37 U/L (15-37) ALT (SGPT) 31 U/L (12-78) TROPONIN I 0.10 ng/mL (0.00-1.5) TROPONIN REFERENCE RANGE:<0.1 NEGATIVE0.1-1.5 INDETERMINANT>1.5 POSITIVE ACETAMINOPHEN < 2.0 L ug/mL (10-30) ETHYL ALCOHOL < 3 L mg/dL (3-10) THYROID STIMULATING HORMONE 6.838 H uIU/mL (0.34-3.74) . PROGRESS AND PROCEDURES PROCEDURES (Patient was prepped and draped in the normal fashion. The ultrasound was used to find a superficial proximal vein in the left before meals. The vessel was nonpulsatile and collapsed withmild pressure. The blood vessel was entered with a 18-gauge angiocatheter. Placement was confirmed with a flash of blood in the Angiocath as well as direct visualization withultrasoundwith the tip of the angiocatheter in the lumen of the vessel. Patient tolerated procedure well. Adequate blood flow and easy flushing obtained. Patient tolerated procedure well. IV was secured with tape and wrapping. No competitions. Bone loss was minimal.). Restraints: Restraints ordered for non violent behavior. A 1 hour face to face subsequent restraint assessment was performed. She has demonstrated non-violent behavior including climbing out of bed and pulling at IV lines that requires restraints. A thorough history and physical exam was completed and medical reasons for the patient's behavior considered. Alternatives to restraints have been attempted via patient teaching, providing companionship and supervision, modifications to environment by decreasing the surrounding stimulus, repositioning and moving the patient close to the nursing station, frequent reminding and redirection of behavior, assessment for underlying medical problem and comfort measures. Alternative to restraints failed due to patient inability to follow directions and remains agitated and low level of consciousness. Applied right and left wrist restraints. Restraint reevaluation: evaluated patient's medical and behavioral condition and immediate situation. Reaction to restraint intervention evaluated- patient appeared less agitated and was more cooperative with treatment. Restraints have been continued as she continues to exhibit behavior requiring restraint. Course of Care: the patient is a 46-year-old female with past medical history significant for chronic kidney disease and likely chronic pain presenting for nausea and altered mental status. Patient had apparently taken twice her regular dose of methadone. Patient is sleepy on examination and difficult to direct. Concern for patient's hypotension here in the emergency department. Patient was a difficult IV stick. Patient also noted to be severely uncooperative with staff in regards to starting IV. Patient would constantly withdraw during the IV placement. Despite multiple times from nursing staff tocontrol the patient's movement and redirect the patient to obtaining the IV, patient was uncooperative. We were able to get a small IV in the patient's right medial thigh distally. Able to obtain laboratory studies and start fluids however this IV wassmall and insufficient. I was able to place an IV in the patient's left before meals under ultrasound guidance. Patient tolerated the procedure well however shortly after the patient's IV was secured by nursing staff, the patient had reached over intentionally and pulled the IV out. Because the patient has been very difficult with obtaining IV access and uncooperative with her evaluation and treatment feel the benefits of restraining the patient outweigh the risks at this time. Patient is altered and uncooperative with the treatments which are essential. Patient requires fluids and medications through the IV and the patient pulls them out, would significantly delayed her care. Patient also could have serious underlying abnormality requiring further IV medications. At this time the patient's GCS is 10. Patient does not need to be intubated at this time. Patient appears to be protecting her airway and following commands. Patient hypotensive and provided fliuds. will be careful with fluids because of hemodialysis. The patient's workup was remarkable for a prolonged QT. The rest of the patient's workup is unremarkable. Because of the prolonged QT syndrome, feel that this is due to the methadone, magnesium was provided. Patient continues to be extremely sleepy and lethargic. Laboratory studies are also remarkable for the findings above. Troponin is noted to b in the indeterminate range at 0.1. Was able to speak to Dr. Hdz at [facility]. Patient is to be excepted therefore dialysis and altered mental status as well as overdose. Patient also with indeterminate troponin. Because of the patient's dialysis needs, patient cannot be treated here. Also discussed with the accepting physician there about her care here yesterday. Patient had reportedly presented for palpitations. By the time the patient arrived at [facility], patient reported abdominal pain. There was no Significant cardiac workup. unclear why the patient's story had changed from the time she was here yesterday until her transfer to [facility]. Patient also states she left the hospital because "I couldn't breath." Asked why patient left a hospital when she could not breath. Patient refused to answer. Unable to obtain informed written consent because the patient's altered mental status. Patient will require transfer to another facility for further management and treatment. transport has been arranged. Patient will be taken by ALS. Transport ETA is 9:30 this evening. Patient is stable for transport. Critical care performed (65 minutes). Time is exclusive of separately billable procedures. Time includes: direct patient care, patient reassessment, coordination of patient care, review of patient's medical records, medical consultation and documentation of patient care. Disposition: Benefits, risks and alternatives to transfer explained to patient. Transferred to [facility]. two person consent obtained. CLINICAL IMPRESSION Single drug overdose with methadone. severe hypotension Elevated troponin, acute chronic kidney disease altered mental status. (Electronically signed by Armani Martínez Dr. 11/09/2016 21:16)
--- NOTE | 2016-11-08 19:02 | ED ORDER SUMMARY ---
..... 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) (17:32 11/08/2016 Lili Cerna) (17:46 LNations ER Tech1) CBC w Diff Urgent (17:33 11/08/2016 Lili Cerna) (Ack 17:36 PWeiler ER Tech1) (18:49 PWeiler ER Tech1) CMP Urgent (17:33 11/08/2016 Lili Cerna) (Ack 17:36 PWeiler ER Tech1) (18:49 PWeiler ER Tech1) UA-Culture if indicated Urgent (17:33 11/08/2016 Lili Cerna) (Ack 17:36 PWeiler ER Tech1) (18:49 PWeiler ER Tech1) PT with INR Urgent (17:33 11/08/2016 Lili Cerna) (Ack 17:36 PWeiler ER Tech1) (18:49 PWeiler ER Tech1) PTT Urgent (17:33 11/08/2016 Lili Cerna) (Ack 17:36 PWeiler ER Tech1) (18:49 PWeiler ER Tech1) Troponin-I Urgent (17:33 11/08/2016 Lili Cerna) (Ack 17:36 PWeiler ER Tech1) (18:49 PWeiler ER Tech1) Urine Drug Screen Urgent (17:33 11/08/2016 Lili Cerna) (Ack 17:36 PWeiler ER Tech1) (18:49 PWeiler ER Tech1) Lactate, Serum Urgent (17:33 11/08/2016 Lili Cerna) (Ack 17:36 PWeiler ER Tech1) (19:09 KWilliams R.N.) Ethyl Alcohol Urgent (17:33 11/08/2016 Lili Cerna) (Ack 17:36 PWeiler ER Tech1) (18:49 PWeiler ER Tech1) Salicylate Level Urgent (17:33 11/08/2016 Lili Cerna) (Ack 17:36 PWeiler ER Tech1) (18:49 PWeiler ER Tech1) TSH Urgent (17:33 11/08/2016 Lili Cerna) (Ack 17:36 PWeiler ER Tech1) (18:49 PWeiler ER Tech1) Acetaminophen Level Urgent (17:33 11/08/2016 Lili Cerna) (Ack 17:36 PWeiler ER Tech1) (18:49 PWeiler ER Tech1) EKG - ER Stat (17:33 11/08/2016 Lili Cerna) (Ack 17:36 PWeiler ER Tech1) (17:46 LNations ER Tech1) Pulse oximeter (17:33 11/08/2016 Lili Cerna) (17:46 LNations ER Tech1) Soft Restraints per protocol (non-violent) (18:29 11/08/2016 Lili Cerna) (19:09 KWilliams R.N.) MEDICATION ORDERS: IV FLUIDS: IV NS : initial bolus 500 mL (1000 mL/hr), then none - for X1 (NOW) (17:32 11/08/2016 Lili Cerna) (19:09 KWcarolinaams R.N.) Magnesium Sulfate IV 2 gm/50mL (HIGH ALERT MEDICATION, NOW, over 1 hour) (17:53 11/08/2016 Lili Cerna) (19:30 oberts R.N.) IV NS : initial bolus none -, then 150 mL/hr for 6h (NOW) (19:11 11/08/2016 Tatyams R.N. verbal order read back to Lili Cerna) (19:12 KWilliams R.N.) ORDER SHEET NOTES: [Electronically signed by Sandra Dawn R.N. (22:08 11/08/2016)] [Electronically signed by Armani Martínez Dr. (21:16 11/09/2016)] [Electronically locked/signed by Sandra Dawn R.N. (22:08 11/08/2016)]
--- NOTE | 2016-11-08 19:02 | ED ORDER SUMMARY ---
..... 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) (OD) (17:32 11/08/2016 Lili Cerna) (17:46 LNations ER Tech1) CBC w Diff Urgent (17:33 11/08/2016 Lili Cerna) (Ack 17:36 PWeiler ER Tech1) (18:49 PWeiler ER Tech1) CMP Urgent (17:33 11/08/2016 Lili Cerna) (Ack 17:36 PWeiler ER Tech1) (18:49 PWeiler ER Tech1) UA-Culture if indicated Urgent (17:33 11/08/2016 Lili Cerna) (Ack 17:36 PWeiler ER Tech1) (18:49 PWeiler ER Tech1) PT with INR Urgent (17:33 11/08/2016 Lili Cerna) (Ack 17:36 PWeiler ER Tech1) (18:49 PWeiler ER Tech1) PTT Urgent (17:33 11/08/2016 Lili Cerna) (Ack 17:36 PWeiler ER Tech1) (18:49 PWeiler ER Tech1) Troponin-I Urgent (17:33 11/08/2016 Lili Cerna) (Ack 17:36 PWeiler ER Tech1) (18:49 PWeiler ER Tech1) Urine Drug Screen Urgent (17:33 11/08/2016 Lili Cerna) (Ack 17:36 PWeiler ER Tech1) (18:49 PWeiler ER Tech1) Lactate, Serum Urgent (17:33 11/08/2016 Lili Cerna) (Ack 17:36 PWeiler ER Tech1) (19:09 KWilliams R.N.) Ethyl Alcohol Urgent (17:33 11/08/2016 Lili Cerna) (Ack 17:36 PWeiler ER Tech1) (18:49 PWeiler ER Tech1) Salicylate Level Urgent (17:33 11/08/2016 Lili Cerna) (Ack 17:36 PWeiler ER Tech1) (18:49 PWeiler ER Tech1) TSH Urgent (17:33 11/08/2016 Lili Cerna) (Ack 17:36 PWeiler ER Tech1) (18:49 PWeiler ER Tech1) Acetaminophen Level Urgent (17:33 11/08/2016 Lili Cerna) (Ack 17:36 PWeiler ER Tech1) (18:49 PWeiler ER Tech1) EKG - ER Stat (17:33 11/08/2016 Lili Cerna) (Ack 17:36 PWeiler ER Tech1) (17:46 LNations ER Tech1) Pulse oximeter (17:33 11/08/2016 Lili Cerna) (17:46 LNations ER Tech1) Soft Restraints per protocol (non-violent) (18:29 11/08/2016 Lili Cerna) (19:09 KWilliams R.N.) MEDICATION ORDERS: IV FLUIDS: IV NS : initial bolus 500 mL (1000 mL/hr), then none - for X1 (NOW) (17:32 11/08/2016 Lili Cerna) (19:09 KWcarolinaams R.N.) Magnesium Sulfate IV 2 gm/50mL (HIGH ALERT MEDICATION, NOW, over 1 hour) (17:53 11/08/2016 Lili Cerna) (19:30 oberts R.N.) IV NS : initial bolus none -, then 150 mL/hr for 6h (NOW) (19:11 11/08/2016 Tatyams R.N. verbal order read back to Lili Cerna) (19:12 KWilliams R.N.) ORDER SHEET NOTES: [Electronically signed by Sandra Dawn R.N. (22:08 11/08/2016)] [Electronically signed by Armani Martínez Dr. (21:16 11/09/2016)] [Electronically locked/signed by Sandra Dawn R.N. (22:08 11/08/2016)]
--- NOTE | 2016-11-08 19:02 | ED NURSING NOTES ---
Clinical Report - Nurses [facility] [address] [place] [address] 11/08/2016 17:19 Patient: ADI RICO TRIAGE <<STRICKEN ENTRY-- Triage time 1615. Acuity: LEVEL 3. Chief Complaint: DRUG OVERDOSE. Not alert. ROSE COMA SCORE: [place] Coma Scale: 11- eyes open to pain (2); best verbal response- disoriented (4); best motor response- localizes to pain (5). --18:52 Jessica Dorsey R.N. --END STRIKE>> Correction --19:10 Jessica Dorsey R.N. 18:46 11/08/16. BP: 72/50. HR: 66. RR: 10. O2 saturation: 94% on room air. --18:52 Jessica Dorsey R.N. Triage time 1715. Acuity: LEVEL 3. Chief Complaint: DRUG OVERDOSE. Not alert. ROSE COMA SCORE: [place] Coma Scale: 11- eyes open to pain (2); best verbal response- disoriented (4); best motor response- localizes to pain (5). --19:10 Jessica Dorsey R.N. Weight: 63.5 kg estimated. Height/Length: 63 inches Estimated. BMI: 24.8. --18:45 Jessica Dorsey R.N. Medications Albuterol Sulfate Inhalation. ALPRAZolam Oral. Aspirin Low Dose Oral. Ativan Oral 1 mg, 4x a day (PRN migraines). Atorvastatin Calcium Oral. B Complete Oral. Combivent Respimat Inhalation. Docusate Sodium Oral 240 mg, daily (2 bottles from 11-18-15; 12-17-15). Ergocalciferol Oral. FerrouSul Oral. Insulin Regular Human Injection sliding scale 2x/day. Lantus Subcutaneous 20 units , at bedtime. Levothyroxine Sodium Oral. LORazepam Oral. Medroxyprogesterone Acetate Intramuscular. Methadone HCl Oral 125mg daily taken at 0900 . Metoprolol Succinate ER Oral. Senna Laxative Oral 1-2 tabs, daily (2 bottles 11-18-15; 12-17-15). Sennosides Oral. Sevelamer Carbonate Oral. Simvastatin Oral 40 mg, daily (1 bottle dated 11-19-15). Vit d 1000 units, daily (3 bottles 16; 12-17-15; 01-17-16). --18:50 Jessica Dorsey R.N. Allergies Augmentin. Codeine. Compazine. Darvocet. Inapsine. Phenergan. (muscles twitch) Reglan. Toradol. Tramadol. Vistril. Zofran. (headache) --18:50 Jessica Dorsey R.N. History Arrived by EMS. Primary physician ([facility]). ( EMS called to house by patient's mother, mom states patient took too many of her methadone pills. Pt lethargic in triage, requiring sternal rub and paniful stimuli for response. Pt unable to answer most triage questions. placed in trendelenberg upon arrival to room). This occurred today. Treatment FOLDING MACHINE TENDER: None. EMS treatment FOLDING MACHINE TENDER verbally communicated. Finger stick glucose performed (430). BP: 110/p. HR: 80. RR: 12. O2 saturation: 95 % room air. Upon arrival patient awake. No medications given. --18:52 Jessica Dorsey R.N. PROBLEMS: Palpitations. Hyponatremia. Hypermagnesemia. Paroxysmal Supraventricular Tachycardia. Anxiety Reaction. Kidney failure. Substance Abuse. Hyperglycemia. Hyperkalemia. Renal Failure. Hematuria. Tension-Type Headache. Chronic Headache. Abscess. Renal Insufficiency. Cellulitis. Atypical Chest Pain. Gastroparesis. Contusion. Fall. Tetanus Status. Headache. Migraine Headache. Immunizations. Gastroesophageal Reflux. Narcotic Withdrawal. LNMP - Last Normal Menstrual Period. UTI - Urinary Tract Infection. Vomiting. Abdominal Pain. Diabetes Mellitus. Hypertension. --18:50 Jessica Dorsey R.N. ADDITIONAL SURGERIES: Ankle. CABG x3. Incision and drainage of abscess. Oophorectomy. Shoulder Surgery. Sinus Surgery. --18:50 Jessica Dorsey R.N. Interventions ID band on patient. To treatment room. --18:52 Jessica Dorsey R.N. PHYSICAL ASSESSMENT 18:20. To room via stretcher. GENERAL / NEURO / PSYCH: Not alert. Appears agitated and labile. (impulsive movements followed by lethargic periods and snoring). She appears agitated. The patient is disoriented to situation. ( lethargic). RESPIRATORY: Respirations not labored. CVS: Capillary refill less than 2 seconds. GI / : Abdomen soft. SKIN: Skin is warm and dry. ( extensive scar tissue. Healing surgical incision to sternum post CABG). --19:07 Jessica Dorsey R.N. NURSING PROGRESS NOTES 18:00 11/08/2016 Site #2 started via IV in the right with an 22g angiocath, with aseptic technique and good blood return; one attempt. Blood drawn: rainbow set. Labeled in the presence of the patient and sent to the lab. Saline lock flushed with 10 mL saline (22g placed in right medial thigh). --18:57 Jessica Dorsey R.N. 18:35 11/08/2016 Site #1 started via IV in the right with an 20g angiocath, with aseptic technique and good blood return; one attempt. Blood drawn: rainbow set. Labeled in the presence of the patient. Saline lock flushed with 10 mL saline (20g placed in right medial lower leg.). --18:56 Jessica Dorsey R.N. ( Extensive time spent trying to obtain vascular access. Access obtained 4 separate times with ultrasound guidance by this RN, but unable to advance catheter once initial stick due to patient hitting at line and attempting to sit up. Requiring 3 RNs to hold arm still. 18G placed via MD and ultrasound which pt immediately pulled out.). --18:57 Jessica Dorsey R.N. 16:30. The plan of care for this patient has been created. senior stock plan administrator, pulse oximeter and NIBP monitor placed on patient. Patient gowned. Head of bed not elevated. Call light placed in reach. Side rails up x 2. Bed placed in lowest position. Brakes of bed on. Patient ready for evaluation- chart flagged and ED physician notified. --18:57 Jessica Dorsey R.N. 18:00 11/08/2016 Started bag #1 1000 mL IV Fluids IV NS (Saline); at 999 mL/hr over 1 hour(s) via site #2. Allergies verified and confirmed 5 rights. IV patency established. IV site checked: no pain, redness, or swelling. IV flushed thoroughly pre- and post-medication administration. --19:09 Jessica Dorsey R.N. EKG time: (1737). --19:10 Jessica Dorsey R.N. 18:35 11/08/2016 Started bag #1 1000 mL IV Fluids IV NS (Saline); at 150 mL/hr over 6 hour(s) via site #2 via IV pump. Allergies verified and confirmed 5 rights. IV patency established. IV site checked: no pain, redness, or swelling. IV flushed thoroughly pre- and post-medication administration. Completed per protocol. --19:12 Jessica Dorsey R.N. 18:41 11/08/2016 IV Fluids IV NS Discontinued: bag #1 infused. Total amount infused: 1000 mL. IV patency established. IV site checked: no pain, redness, or swelling. IV flushed thoroughly. --19:13 Jessica Dorsey R.N. 18:00 11/08/16. BP: 82/49. --19:14 Jessica Dorsey R.N. 19:00 11/08/2016 Magnesium Sulfate (Magnesium Sulfate in D5W) IVP 2 gm given over 1 hour(s) via site #1. Allergies verified and confirmed 5 rights. IV patency established. IV site checked: no pain, redness, or swelling. IV flushed thoroughly pre- and post-medication administration. IVP given by RN. --19:30 Sandra Dawn R.N. 19:31 11/08/16. BP: 106/62. HR: 66. O2 saturation: 100% on nasal cannula at 2 liters/minute. --19:33 Sandra Dawn R.N. 18:45. ( Difficulty in following commands. Soft restraints to upper limbs.). GENERAL / NEURO / PSYCH: Decreased awareness. --19:34 Sandra Dawn R.N. ( Attempted to get ua with femcath. no urine return at that time.). --19:39 Sandra Dawn R.N. 19:43 11/08/16. BP: 99/59. HR: 65. RR: 12. O2 saturation: 100% on nasal cannula at 2 liters/minute. --19:44 Sandra Dawn R.N. 20:42 11/08/16. BP: 104/66. HR: 73. RR: 14. O2 saturation: 100% on nasal cannula at 2 liters/minute. Pain level now: cannot qualify. --20:43 Sandra Dawn R.N. ( Repositioned and turned to lt side, pillows at midback and between legs.). --21:00 Sandra Dawn R.N. 21:01 11/08/16. BP: 111/65. HR: 62. RR: 12. O2 saturation: 99% on nasal cannula at 2 liters/minute. --21:07 Sandra Dawn R.N. 21:37 11/08/2016 IV Fluids IV NS Discontinued: bag #2 STOPPED upon transfer. Total amount infused: 500 mL. IV patency established. IV site checked: no pain, redness, or swelling. IV flushed thoroughly. --21:55 Sandra Dawn R.N. DISPOSITION / DISCHARGE Departure time: 21:47. Transferred to [facility]. Summary of care provided to EMS via paper. Transported via ambulance by nurse and EMS with monitor. Report was given to a nurse and an EMT/P. Report included patient's care and treatment. All questions were answered. Report was acknowledged and care was transferred. Patient's personal items include: shirt, pants, undergarments, socks and shoes, fitbit, in the belongings.; items were placed in belongings bag and transported with the patient. Collection of belongings was witnessed by 1 nurse. --21:48 Sandra Dawn R.N. 21:35 11/08/16. BP: 108/66. HR: 66. RR: 16. O2 saturation: 100% on nasal cannula at 2 liters/minute. Temp: deferred. Additional comments: Arrousable to verbal commands. 21:01 11/08/16. BP: 111/65. HR: 62. RR: 12. O2 saturation: 99% on nasal cannula at 2 liters/minute. 20:42 11/08/16. BP: 104/66. HR: 73. RR: 14. O2 saturation: 100% on nasal cannula at 2 liters/minute. Pain level now: cannot qualify. 19:43 11/08/16. BP: 99/59. HR: 65. RR: 12. O2 saturation: 100% on nasal cannula at 2 liters/minute. 19:31 11/08/16. BP: 106/62. HR: 66. O2 saturation: 100% on nasal cannula at 2 liters/minute. 18:46 11/08/16. BP: 72/50. HR: 66. RR: 10. O2 saturation: 94% on room air. 19:13 11/08/16. BP: 82/49. --21:48 Sandra Dawn R.N. Report was given to a nurse. Report included patient's care, treatment, medications, reviewed medication reconcilliation, and condition (including any recent changes or anticipated changes). All questions were answered. Report was acknowledged and care was transferred. (Florencia Chen.). --21:54 Sandra Dawn R.N. Locked/Released at 11/08/2016 22:08 by Sandra Dawn R.N.
--- NOTE | 2016-11-09 21:16 | ED MAR SUMMARY ---
..... Medication Administration Record [facility] [address] [place] [address] Patient: ADI RICO Visit ID: [id number] 46y, F Weight: 63.5 kg Height/Length: 63 in BMI: 24.8 ALLERGIES: Augmentin, Codeine, Compazine, Darvocet, Inapsine, Phenergan, Reglan, Toradol, Tramadol, Vistril, Zofran Start 18:00 11/08/2016 Jessica Dorsey R.N., Stop 18:41 11/08/2016 Jessica Dorsey R.N. Medication Administered: IV NS (SALINE), Dose: IV Fluids over 1 hour(s), Rate: 999 mL/hr, Dispensed: 1000 mL bag, Site: #2 right. Medication Ordered: IV NS : initial bolus 500 mL (1000 mL/hr), then none - for X1 (NOW). Start 18:35 11/08/2016 Jessica Dorsey R.N., Stop 21:37 11/08/2016 Sandra Dawn R.N. Medication Administered: IV NS (SALINE), Dose: IV Fluids over 6 hour(s), Rate: 150 mL/hr, Dispensed: 1000 mL bag, Site: #2 right. Medication Ordered: IV NS : initial bolus none -, then 150 mL/hr for 6h (NOW). Given 19:00 11/08/2016 Sandra Dawn R.N. Medication Administered: MAGNESIUM SULFATE [IVP] (MAGNESIUM SULFATE IN D5W), Dose: 2 gm IVP over 1 hour(s), Site: #1 right. Medication Ordered: Magnesium Sulfate IV 2 gm/50mL (HIGH ALERT MEDICATION, NOW, over 1 hour).
--- NOTE | 2016-11-09 21:16 | ED DISCHARGE INSTRUCTIONS ---
Patient: ADI RICO General Instructions [facility] VisitID: [id number] [address] [place] [address] 46y, F Registration Date/Time: 11/08/2016 Single drug overdose with methadone. severe hypotension Elevated troponin, acute chronic kidney disease altered mental status. (Electronically signed by Armani Martínez Dr. 11/09/2016 21:16)
--- NOTE | 2016-11-09 21:16 | ED MED RECONCILIATION SUMMARY ---
Patient: ADI RICO Medication Reconciliation Report [facility] VisitID: [id number] [place] [address] 46y, F Registration Date/Time: 11/08/2016 Weight: 63.5 kg Height/Length: 63 in. BMI: 24.8 ALLERGIES: Augmentin, Codeine, Compazine, Darvocet, Inapsine, Phenergan, Reglan, Toradol, Tramadol, Vistril, Zofran The patient's Home Medications are listed below: THE FOLLOWING MEDICATIONS NEED TO BE RECONCILED: Albuterol Sulfate Inhalation ALPRAZolam Oral Aspirin Low Dose Oral Ativan Oral 1 mg, 4x a day, PRN migraines Atorvastatin Calcium Oral B Complete Oral Combivent Respimat Inhalation Docusate Sodium Oral 240 mg, daily, 2 bottles from 11-18-15; 12-17-15 Ergocalciferol Oral FerrouSul Oral Insulin Regular Human Injection sliding scale 2x/day Lantus Subcutaneous 20 units , at bedtime Levothyroxine Sodium Oral LORazepam Oral Medroxyprogesterone Acetate Intramuscular Methadone HCl Oral 125mg daily taken at 0900 Metoprolol Succinate ER Oral Senna Laxative Oral 1-2 tabs, daily, 2 bottles 11-18-15; 12-17-15 Sennosides Oral Sevelamer Carbonate Oral Simvastatin Oral 40 mg, daily, 1 bottle dated 11-19-15 Vit d 1000 units, daily, 3 bottles 11-18; 12-17-15; 01-17-16 The source(s) of the original Home Medication information: Not obtained. The following Medications were given to the patient in the Emergency Department: IV NS IV Fluids bolus 0, then 999 mL/hr, administered: 11/08/2016 6:00:00 PM IV NS IV Fluids bolus 0, then 150 mL/hr, administered: 11/08/2016 6:35:00 PM Magnesium Sulfate [IVP] IVP 2 gm, administered: 11/08/2016 7:00:00 PM The following Medications were prescribed to the patient: None.
--- NOTE | 2016-11-09 21:16 | ED DISCHARGE INSTRUCTIONS ---
Patient: ADI RICO General Instructions [facility] VisitID: [id number] [address] [place] [address] 46y, F Registration Date/Time: 11/08/2016 Single drug overdose with methadone. severe hypotension Elevated troponin, acute chronic kidney disease altered mental status. (Electronically signed by Armani Martínez Dr. 11/09/2016 21:16)
--- NOTE | 2016-11-09 21:16 | ED MAR SUMMARY ---
..... Medication Administration Record [facility] [address] [place] [address] Patient: ADI RICO Visit ID: [id number] 46y, F Weight: 63.5 kg Height/Length: 63 in BMI: 24.8 ALLERGIES: Augmentin, Codeine, Compazine, Darvocet, Inapsine, Phenergan, Reglan, Toradol, Tramadol, Vistril, Zofran Start 18:00 11/08/2016 Jessica Dorsey R.N., Stop 18:41 11/08/2016 Jessica Dorsey R.N. Medication Administered: IV NS (SALINE), Dose: IV Fluids over 1 hour(s), Rate: 999 mL/hr, Dispensed: 1000 mL bag, Site: #2 right. Medication Ordered: IV NS : initial bolus 500 mL (1000 mL/hr), then none - for X1 (NOW). Start 18:35 11/08/2016 Jessica Dorsey R.N., Stop 21:37 11/08/2016 Sandra Dawn R.N. Medication Administered: IV NS (SALINE), Dose: IV Fluids over 6 hour(s), Rate: 150 mL/hr, Dispensed: 1000 mL bag, Site: #2 right. Medication Ordered: IV NS : initial bolus none -, then 150 mL/hr for 6h (NOW). Given 19:00 11/08/2016 Sandra Dawn R.N. Medication Administered: MAGNESIUM SULFATE [IVP] (MAGNESIUM SULFATE IN D5W), Dose: 2 gm IVP over 1 hour(s), Site: #1 right. Medication Ordered: Magnesium Sulfate IV 2 gm/50mL (HIGH ALERT MEDICATION, NOW, over 1 hour).
--- NOTE | 2016-11-09 21:16 | ED MED RECONCILIATION SUMMARY ---
Patient: ADI RICO Medication Reconciliation Report [facility] VisitID: [id number] [place] [address] 46y, F Registration Date/Time: 11/08/2016 Weight: 63.5 kg Height/Length: 63 in. BMI: 24.8 ALLERGIES: Augmentin, Codeine, Compazine, Darvocet, Inapsine, Phenergan, Reglan, Toradol, Tramadol, Vistril, Zofran The patient's Home Medications are listed below: THE FOLLOWING MEDICATIONS NEED TO BE RECONCILED: Albuterol Sulfate Inhalation ALPRAZolam Oral Aspirin Low Dose Oral Ativan Oral 1 mg, 4x a day, PRN migraines Atorvastatin Calcium Oral B Complete Oral Combivent Respimat Inhalation Docusate Sodium Oral 240 mg, daily, 2 bottles from 11-18-15; 12-17-15 Ergocalciferol Oral FerrouSul Oral Insulin Regular Human Injection sliding scale 2x/day Lantus Subcutaneous 20 units , at bedtime Levothyroxine Sodium Oral LORazepam Oral Medroxyprogesterone Acetate Intramuscular Methadone HCl Oral 125mg daily taken at 0900 Metoprolol Succinate ER Oral Senna Laxative Oral 1-2 tabs, daily, 2 bottles 11-18-15; 12-17-15 Sennosides Oral Sevelamer Carbonate Oral Simvastatin Oral 40 mg, daily, 1 bottle dated 11-19-15 Vit d 1000 units, daily, 3 bottles 11-18; 12-17-15; 01-17-16 The source(s) of the original Home Medication information: Not obtained. The following Medications were given to the patient in the Emergency Department: IV NS IV Fluids bolus 0, then 999 mL/hr, administered: 11/08/2016 6:00:00 PM IV NS IV Fluids bolus 0, then 150 mL/hr, administered: 11/08/2016 6:35:00 PM Magnesium Sulfate [IVP] IVP 2 gm, administered: 11/08/2016 7:00:00 PM The following Medications were prescribed to the patient: None.
== END 2016-11-08 21:30 | disposition short-term general hospital (02) ==
LOC: ED SRH 17:19 → TRANS SRH 19:35 → ED SRH 21:30
DX: T40.3X1A Poisoning by methadone, accidental (unintentional), initial encounter (principal); I95.2 Hypotension due to drugs; N18.9 Chronic kidney disease, unspecified; R79.89 Other specified abnormal findings of blood chemistry; R41.82 Altered mental status, unspecified; Y93.89 Activity, other specified; Y99.9 Unspecified external cause status; Y92.9 Unspecified place or not applicable
CPT/HCPCS: 81460; 90100; 90616; 92010; 92031; 92780; 93140; 94001; 94060; 95059; 97000

== ENCOUNTER 2016-11-09 15:23 | Emergency (ER) | payer OTHER ==
--- NOTE | 2016-11-09 16:07 | ED CLINICAL REPORT ---
Clinical Report - Physicians/Mid Levels [facility] [address] [place] [address] 11/09/2016 15:24 Patient: ADI RICO Time Seen: 1533. Arrived- By private vehicle. Historian- patient. HISTORY OF PRESENT ILLNESS Chief Complaint: DYSPNEA. This started 5 days ago and is still present. It was abrupt in onset and has been constant but is not gone now. The dyspnea is severe. (nothing worsens or improves). Similar symptoms previously: None. Recent medical care: The patient was seen recently in the emergency department (yesterday and the day before for "fast heart rate"). REVIEW OF SYSTEMS unable to obtain secondary patient being uncooperative. PAST HISTORY See nurses notes. SOCIAL HISTORY unable to obtain secondary to patient being uncooperative. FAMILY HISTORY Unable to obtain family medical history (patient uncooperative). ADDITIONAL NOTES The nursing notes have been reviewed. PHYSICAL EXAM Vital Signs: Oxygen saturation normal. Appearance: Alert. No acute distress. ENT: Ears normal. Nose normal. Pharynx normal. Uvula midline. Neck: Normal inspection. No jugular venous distention. Neck supple. No meningeal signs. CVS: Normal heart rate and rhythm. Heart sounds normal. Pulses normal. Respiratory: No respiratory distress. Breath sounds normal. No wheezes, stridor, rales or rhonchi. (well-healed anterior surgical scar consistent with open-heart surgery). Abdomen: Soft and nontender. No organomegaly. Skin: Skin warm and dry. Normal skin color. No rash. Normal skin turgor. Extremities: Extremities exhibit normal ROM. No lower extremity edema. Neuro: No motor deficit. No sensory deficit. LABS, X-RAYS, AND EKG EKG: No acute ischemia. Normal EKG. Normal sinus rhythm. Rate: 96. Normal P waves. Normal MADELYN. Normal QRS complex. Normal axis. Normal ST and T waves, QT and QTc. EKG unchanged when compared with prior EKG. (yesterday). The study has been interpreted contemporaneously by me. The study has been independently viewed by me. Artifact present. PROGRESS AND PROCEDURES Course of Care: The patient is a 46 yo female presenting for evaluation of rapid heart rate. This is the patient's 3rd day in a row being seen for similar concerns. Patient with complex past medical history and real medical conditions that need attention. I personally evaluated and saw the patient yesterday and transfered her to [facility] for high level of care. Patient was seen there and accepted. Unclear why patient is here today. Patient left AMA yesterday. Will attempt to find records. Work up ordered for AMI, PE, pneumonia, and other metabolic disturbances. EKG obtained. No significant change from prior. QTc improved. When asked why patient left the hospital this time, patient again said she left because she could not breath. While patient was being evaluated and labs were being drawn, patient decide to leave. We were able to get a good IV access with ease compared to yesterday. Discussed this with patient and staff. Patient wanted to leave. Patient understands our only wanting to help her. Discussed serious problems with wanting to leave including but not limited to and permanent disability. Patient is able to make her own medical decisions. Do not feel I can force patient to stay. Offered patient amenities to help her be more comfortable. This did not persuade her to stay. Patient understands she is able to change her mind at any time and return. No grudge will be held against her. Disposition: Discharged. Condition: (undetermined). CLINICAL IMPRESSION acute palpitations shortness of breath. (Electronically signed by Armani Martínez Dr. 11/11/2016 21:46)
--- NOTE | 2016-11-09 16:07 | ED ORDER SUMMARY ---
..... Patient: ADI RICO OrderSheet [facility] VisitID: [id number] [place] [address] 46y, F Registration Date/Time: 11/09/2016 ORDER SHEET Weight: 61.2 kg (stated) Allergies: Augmentin, Codeine, Compazine, Darvocet, Inapsine, Phenergan, Reglan, Toradol, Tramadol, Vistril, Zofran GENERAL ORDERS: Chest 1V Urgent (15:35 11/09/2016 Lili Cerna) (Ack 15:39 LNations ER Tech1) Marketing Services Manager (Continuous) (palpitations) (15:35 11/09/2016 Lili Cerna) (Ack 15:37 LNations ER Tech1) CBC w Diff Urgent (15:36 11/09/2016 Lili Cerna) (Ack 15:37 LNations ER Tech1) CMP Urgent (15:36 11/09/2016 Lili Cerna) (Ack 15:38 LNations ER Tech1) UA-Culture if indicated Urgent (15:36 11/09/2016 Lili Cerna) (Ack 15:38 LNations ER Tech1) PT with INR Urgent (15:36 11/09/2016 Lili Cerna) (Ack 15:38 LNations ER Tech1) BNP Urgent (15:36 11/09/2016 Lili Cerna) (Ack 15:38 LNations ER Tech1) D-Dimer Urgent (15:36 11/09/2016 Lili Cerna) (Ack 15:38 LNations ER Tech1) Urine Drug Screen Urgent (15:36 11/09/2016 Lili Cerna) (Ack 15:38 LNations ER Tech1) Urine Urgent (15:36 11/09/2016 Lili Cerna) (Ack 15:38 LNations ER Tech1) Troponin-I Urgent (15:36 11/09/2016 Lili Cerna) (Ack 15:39 LNations ER Tech1) Ethyl Alcohol Urgent (15:36 11/09/2016 Lili Cerna) (Ack 15:39 LNations ER Tech1) TSH Urgent (15:36 11/09/2016 Lili Cerna) (Ack 15:39 LNations ER Tech1) Pulse oximeter (15:36 11/09/2016 iLli Cerna) (Ack 15:37 LNations ER Tech1) EKG - ER Stat (15:36 11/09/2016 Lili Cerna) (Ack 15:37 LNations ER Tech1) (15:48 LNations ER Tech1) MEDICATION ORDERS: IV FLUIDS: IV Saline Lock (15:36 11/09/2016 Lili eCrna) (15:58 Zechariah R.Luisito) ORDER SHEET NOTES: [Electronically signed by Sheriff Saw Glynn (16:47 11/09/2016)] [Electronically signed by Armani Martínez Dr. (21:46 11/11/2016)] [Electronically locked/signed by Sheriff Saw Glynn (16:47 11/09/2016)]
--- NOTE | 2016-11-09 16:07 | ED NURSING NOTES ---
Clinical Report - Nurses [facility] [address] [place] [address] 11/09/2016 15:24 Patient: ADI RICO TRIAGE Triage time 15:35. Chief Complaint: (Shortness of Breath after dialysis today.). --15:42 Sheriff Glynn R.N. 15:34 11/09/16. BP: 119/99. HR: 87. RR: 20. O2 saturation: 99%. Temp: 97.8 F. Pain level now: 12/12. --15:42 Sheriff Glynn R.N. Weight: 61.2 kg stated. Height/Length: 66 inches Per Patient. BMI: 21.8. --15:40 Sheriff Glynn R.N. Medications Albuterol Sulfate Inhalation. ALPRAZolam Oral. Aspirin Low Dose Oral. Ativan Oral 1 mg, 4x a day (PRN migraines). Atorvastatin Calcium Oral. B Complete Oral. Combivent Respimat Inhalation. Docusate Sodium Oral 240 mg, daily (2 bottles from 11-18-15; 12-17-15). Ergocalciferol Oral. FerrouSul Oral. Insulin Regular Human Injection sliding scale 2x/day. Lantus Subcutaneous 20 units , at bedtime. Levothyroxine Sodium Oral. LORazepam Oral. Medroxyprogesterone Acetate Intramuscular. Methadone HCl Oral 125mg daily taken at 0900 . Metoprolol Succinate ER Oral. Senna Laxative Oral 1-2 tabs, daily (2 bottles 11-18-15; 12-17-15). Sennosides Oral. Sevelamer Carbonate Oral. Simvastatin Oral 40 mg, daily (1 bottle dated 11-19-15). Vit d 1000 units, daily (3 bottles 11-18; 12-17-15; 01-17-16). --15:37 Sheriff Glynn R.N. Allergies Augmentin. Codeine. Compazine. Darvocet. Inapsine. Phenergan. (muscles twitch) Reglan. Toradol. Tramadol. Vistril. Zofran. (headache) --15:37 Sheriff Glynn R.N. History Arrived by private vehicle. Historian: patient. Accompanied by mother. SOCIAL HX: Never smoker. No alcohol use or drug use. FALL RISK ASSESSMENT: Fall risk assessment completed. No fall risk identified. NUTRITIONAL RISK ASSESSMENT: The nutritional risk assessment revealed no deficiencies. FUNCTIONAL ASSESSMENT: Functional assessment: no impairments noted. LEARNING NEEDS ASSESSMENT: The learning needs assessment revealed no barriers. SKIN INTEGRITY ASSESSMENT: Skin integrity risk assessment completed. No skin integrity risk identified. --15:42 Sheriff Glynn R.N. PROBLEMS: Drug Poisoning. Palpitations. Hyponatremia. Hypermagnesemia. Paroxysmal Supraventricular Tachycardia. Anxiety Reaction. Kidney failure. Substance Abuse. Hyperglycemia. Hyperkalemia. Renal Failure. Hematuria. Tension-Type Headache. Chronic Headache. Abscess. Renal Insufficiency. Cellulitis. Atypical Chest Pain. Gastroparesis. Contusion. Fall. Tetanus Status. Headache. Migraine Headache. Immunizations. Gastroesophageal Reflux. Narcotic Withdrawal. LNMP - Last Normal Menstrual Period. UTI - Urinary Tract Infection. Vomiting. Abdominal Pain. Diabetes Mellitus. Hypertension. --15:39 Sheriff Glynn R.N. Narcotic Withdrawal [RuleOut]. --15:39 Sheriff Glynn R.N. PHYSICAL ASSESSMENT Ambulatory to room. GENERAL / NEURO / PSYCH: Alert. Oriented X 4. Appears in pain. RESPIRATORY: The patient can speak. CVS: Capillary refill less than 2 seconds. Pulses within normal limits. SKIN: Skin intact. Skin is warm and dry. Normal skin turgor. --15:42 Sheriff Glynn R.N. NURSING PROGRESS NOTES Head of bed elevated. Two patient identifiers checked. Call light placed in reach. Side rails up x 2. Bed placed in lowest position. Brakes of bed on. --15:42 Sheriff Glynn R.N. EKG time: (1550). EKG was ordered, performed by a tech and shown to the ED physician. --15:55 Nestor Swan ER Tech1 15:58 11/09/2016 Site #1 started via IV in the right forearm with an 20g angiocath, with aseptic technique and good blood return; one attempt. Blood drawn: rainbow set. Labeled in the presence of the patient and sent to the lab. --15:58 Sheriff Glynn R.N. DISPOSITION / DISCHARGE The patient left the Emergency Department against medical advice and without completion of treatment; patient was unaccompanied. The patient appears to be alert and oriented x4. She notified the ED staff prior to leaving the department and stated is leaving the ED (Just wants to go home). Notified the ED physician and charge nurse of patient departure. Prior to leaving the ED, she was advised to stay for completion of treatment and return if needed. She was informed of the risks of leaving and verbalized understanding of these risks. Patient signed form prior to leaving. She left the Emergency Department ambulatory. --16:12 Sheriff Glynn R.N. Locked/Released at 11/09/2016 16:47 by Sheriff Glynn R.N.
--- NOTE | 2016-11-09 16:07 | ED ORDER SUMMARY ---
..... Patient: ADI RICO OrderSheet [facility] VisitID: [id number] [place] [address] 46y, F Registration Date/Time: 11/09/2016 ORDER SHEET Weight: 61.2 kg (stated) Allergies: Augmentin, Codeine, Compazine, Darvocet, Inapsine, Phenergan, Reglan, Toradol, Tramadol, Vistril, Zofran GENERAL ORDERS: Chest 1V Urgent (15:35 11/09/2016 Lili Cerna) (Ack 15:39 LNations ER Tech1) Outbound Sales Representative (Continuous) (palpitations) (15:35 11/09/2016 Lili Cerna) (Ack 15:37 LNations ER Tech1) CBC w Diff Urgent (15:36 11/09/2016 Lili Cerna) (Ack 15:37 LNations ER Tech1) CMP Urgent (15:36 11/09/2016 Lili Cerna) (Ack 15:38 LNations ER Tech1) UA-Culture if indicated Urgent (15:36 11/09/2016 Lili Cerna) (Ack 15:38 LNations ER Tech1) PT with INR Urgent (15:36 11/09/2016 Lili Cerna) (Ack 15:38 LNations ER Tech1) BNP Urgent (15:36 11/09/2016 Lili Cerna) (Ack 15:38 LNations ER Tech1) D-Dimer Urgent (15:36 11/09/2016 Lili Cerna) (Ack 15:38 LNations ER Tech1) Urine Drug Screen Urgent (15:36 11/09/2016 Lili Cerna) (Ack 15:38 LNations ER Tech1) Urine Urgent (15:36 11/09/2016 Lili Cerna) (Ack 15:38 LNations ER Tech1) Troponin-I Urgent (15:36 11/09/2016 Lili Cerna) (Ack 15:39 LNations ER Tech1) Ethyl Alcohol Urgent (15:36 11/09/2016 Lili Cerna) (Ack 15:39 LNations ER Tech1) TSH Urgent (15:36 11/09/2016 Lili Cerna) (Ack 15:39 LNations ER Tech1) Pulse oximeter (15:36 11/09/2016 Lili Cerna) (Ack 15:37 LNations ER Tech1) EKG - ER Stat (15:36 11/09/2016 Lili Cerna) (Ack 15:37 LNations ER Tech1) (15:48 LNations ER Tech1) MEDICATION ORDERS: IV FLUIDS: IV Saline Lock (15:36 11/09/2016 Lili Cerna) (15:58 Zechariah R.Luisito) ORDER SHEET NOTES: [Electronically signed by Sheriff Saw Glynn (16:47 11/09/2016)] [Electronically signed by Armani Martínez Dr. (21:46 11/11/2016)] [Electronically locked/signed by Sheriff Saw Glynn (16:47 11/09/2016)]
--- NOTE | 2016-11-09 16:07 | ED CLINICAL REPORT ---
Clinical Report - Physicians/Mid Levels [facility] [address] [place] [address] 11/09/2016 15:24 Patient: ADI RICO Time Seen: 1533. Arrived- By private vehicle. Historian- patient. HISTORY OF PRESENT ILLNESS Chief Complaint: DYSPNEA. This started 5 days ago and is still present. It was abrupt in onset and has been constant but is not gone now. The dyspnea is severe. (nothing worsens or improves). Similar symptoms previously: None. Recent medical care: The patient was seen recently in the emergency department (yesterday and the day before for "fast heart rate"). REVIEW OF SYSTEMS unable to obtain secondary patient being uncooperative. PAST HISTORY See nurses notes. SOCIAL HISTORY unable to obtain secondary to patient being uncooperative. FAMILY HISTORY Unable to obtain family medical history (patient uncooperative). ADDITIONAL NOTES The nursing notes have been reviewed. PHYSICAL EXAM Vital Signs: Oxygen saturation normal. Appearance: Alert. No acute distress. ENT: Ears normal. Nose normal. Pharynx normal. Uvula midline. Neck: Normal inspection. No jugular venous distention. Neck supple. No meningeal signs. CVS: Normal heart rate and rhythm. Heart sounds normal. Pulses normal. Respiratory: No respiratory distress. Breath sounds normal. No wheezes, stridor, rales or rhonchi. (well-healed anterior surgical scar consistent with open-heart surgery). Abdomen: Soft and nontender. No organomegaly. Skin: Skin warm and dry. Normal skin color. No rash. Normal skin turgor. Extremities: Extremities exhibit normal ROM. No lower extremity edema. Neuro: No motor deficit. No sensory deficit. LABS, X-RAYS, AND EKG EKG: No acute ischemia. Normal EKG. Normal sinus rhythm. Rate: 96. Normal P waves. Normal MADELYN. Normal QRS complex. Normal axis. Normal ST and T waves, QT and QTc. EKG unchanged when compared with prior EKG. (yesterday). The study has been interpreted contemporaneously by me. The study has been independently viewed by me. Artifact present. PROGRESS AND PROCEDURES Course of Care: The patient is a 46 yo female presenting for evaluation of rapid heart rate. This is the patient's 3rd day in a row being seen for similar concerns. Patient with complex past medical history and real medical conditions that need attention. I personally evaluated and saw the patient yesterday and transfered her to [facility] for high level of care. Patient was seen there and accepted. Unclear why patient is here today. Patient left AMA yesterday. Will attempt to find records. Work up ordered for AMI, PE, pneumonia, and other metabolic disturbances. EKG obtained. No significant change from prior. QTc improved. When asked why patient left the hospital this time, patient again said she left because she could not breath. While patient was being evaluated and labs were being drawn, patient decide to leave. We were able to get a good IV access with ease compared to yesterday. Discussed this with patient and staff. Patient wanted to leave. Patient understands our only wanting to help her. Discussed serious problems with wanting to leave including but not limited to and permanent disability. Patient is able to make her own medical decisions. Do not feel I can force patient to stay. Offered patient amenities to help her be more comfortable. This did not persuade her to stay. Patient understands she is able to change her mind at any time and return. No grudge will be held against her. Disposition: Discharged. Condition: (undetermined). CLINICAL IMPRESSION acute palpitations shortness of breath. (Electronically signed by Armani Martínez Dr. 11/11/2016 21:46)
--- NOTE | 2016-11-11 21:47 | ED MED RECONCILIATION SUMMARY ---
Patient: ADI RICO Medication Reconciliation Report [facility] VisitID: [id number] [place] [address] 46y, F Registration Date/Time: 11/09/2016 Weight: 61.2 kg Height/Length: 66 in. BMI: 21.8 ALLERGIES: Augmentin, Codeine, Compazine, Darvocet, Inapsine, Phenergan, Reglan, Toradol, Tramadol, Vistril, Zofran The patient's Home Medications are listed below: THE FOLLOWING MEDICATIONS NEED TO BE RECONCILED: Albuterol Sulfate Inhalation ALPRAZolam Oral Aspirin Low Dose Oral Ativan Oral 1 mg, 4x a day, PRN migraines Atorvastatin Calcium Oral B Complete Oral Combivent Respimat Inhalation Docusate Sodium Oral 240 mg, daily, 2 bottles from 11-18-15; 12-17-15 Ergocalciferol Oral FerrouSul Oral Insulin Regular Human Injection sliding scale 2x/day Lantus Subcutaneous 20 units , at bedtime Levothyroxine Sodium Oral LORazepam Oral Medroxyprogesterone Acetate Intramuscular Methadone HCl Oral 125mg daily taken at 0900 Metoprolol Succinate ER Oral Senna Laxative Oral 1-2 tabs, daily, 2 bottles 11-18-15; 12-17-15 Sennosides Oral Sevelamer Carbonate Oral Simvastatin Oral 40 mg, daily, 1 bottle dated 11-19-15 Vit d 1000 units, daily, 3 bottles 11-18; 12-17-15; 01-17-16 The source(s) of the original Home Medication information: Not obtained. The following Medications were given to the patient in the Emergency Department: None. The following Medications were prescribed to the patient: None.
--- NOTE | 2016-11-11 21:47 | ED MAR SUMMARY ---
..... Medication Administration Record [facility] [address] [place] [address] Patient: ADI RICO Visit ID: [id number] 46y, F Weight: 61.2 kg Height/Length: 66 in BMI: 21.8 ALLERGIES: Augmentin, Codeine, Compazine, Darvocet, Inapsine, Phenergan, Reglan, Toradol, Tramadol, Vistril, Zofran
--- NOTE | 2016-11-11 21:47 | ED DISCHARGE INSTRUCTIONS ---
Patient: ADI RICO General Instructions [facility] VisitID: [id number] [address] [place] [address] 46y, F Registration Date/Time: 11/09/2016 acute palpitations shortness of breath. (Electronically signed by Armani Martínez Dr. 11/11/2016 21:46)
--- NOTE | 2016-11-11 21:47 | ED MAR SUMMARY ---
..... Medication Administration Record [facility] [address] [place] [address] Patient: ADI RICO Visit ID: [id number] 46y, F Weight: 61.2 kg Height/Length: 66 in BMI: 21.8 ALLERGIES: Augmentin, Codeine, Compazine, Darvocet, Inapsine, Phenergan, Reglan, Toradol, Tramadol, Vistril, Zofran
--- NOTE | 2016-11-11 21:47 | ED MED RECONCILIATION SUMMARY ---
Patient: ADI RICO Medication Reconciliation Report [facility] VisitID: [id number] [place] [address] 46y, F Registration Date/Time: 11/09/2016 Weight: 61.2 kg Height/Length: 66 in. BMI: 21.8 ALLERGIES: Augmentin, Codeine, Compazine, Darvocet, Inapsine, Phenergan, Reglan, Toradol, Tramadol, Vistril, Zofran The patient's Home Medications are listed below: THE FOLLOWING MEDICATIONS NEED TO BE RECONCILED: Albuterol Sulfate Inhalation ALPRAZolam Oral Aspirin Low Dose Oral Ativan Oral 1 mg, 4x a day, PRN migraines Atorvastatin Calcium Oral B Complete Oral Combivent Respimat Inhalation Docusate Sodium Oral 240 mg, daily, 2 bottles from 11-18-15; 12-17-15 Ergocalciferol Oral FerrouSul Oral Insulin Regular Human Injection sliding scale 2x/day Lantus Subcutaneous 20 units , at bedtime Levothyroxine Sodium Oral LORazepam Oral Medroxyprogesterone Acetate Intramuscular Methadone HCl Oral 125mg daily taken at 0900 Metoprolol Succinate ER Oral Senna Laxative Oral 1-2 tabs, daily, 2 bottles 11-18-15; 12-17-15 Sennosides Oral Sevelamer Carbonate Oral Simvastatin Oral 40 mg, daily, 1 bottle dated 11-19-15 Vit d 1000 units, daily, 3 bottles 11-18; 12-17-15; 01-17-16 The source(s) of the original Home Medication information: Not obtained. The following Medications were given to the patient in the Emergency Department: None. The following Medications were prescribed to the patient: None.
--- NOTE | 2016-11-11 21:47 | ED DISCHARGE INSTRUCTIONS ---
Patient: ADI RICO General Instructions [facility] VisitID: [id number] [address] [place] [address] 46y, F Registration Date/Time: 11/09/2016 acute palpitations shortness of breath. (Electronically signed by Armani Martínez Dr. 11/11/2016 21:46)
== END 2016-11-09 16:10 | disposition left against medical advice (07) ==
LOC: ED SRH 15:23
DX: R00.2 Palpitations (principal); R06.02 Shortness of breath; E11.9 Type 2 diabetes mellitus without complications; I10 Essential (primary) hypertension; Z79.82 Long term (current) use of aspirin; Z79.4 Long term (current) use of insulin; Z79.891 Long term (current) use of opiate analgesic; Z79.899 Other long term (current) drug therapy; Z88.0 Allergy status to penicillin

== ENCOUNTER 2016-12-04 21:59 | Emergency (ER) | payer OTHER ==
--- NOTE | 2016-12-04 23:23 | ED ORDER SUMMARY ---
..... Patient: ADI RICO OrderSheet [facility] VisitID: [id number] [place] [address] 46y, F Registration Date/Time: 12/04/2016 ORDER SHEET Weight: 68.0 kg (stated) Allergies: Augmentin, Codeine, Compazine, Darvocet, Inapsine, Phenergan, Reglan, Toradol, Tramadol, Vistril, Zofran GENERAL ORDERS: Ankle 3 or 4V Right Urgent (22:17 12/04/2016 Ashley DALAL) (Ack 22:20 AMcQuoid ER Tech1) (22:28 AMcQuoid ER Tech1) MEDICATION ORDERS: IV FLUIDS: ORDER SHEET NOTES: [Electronically signed by Chikis Carrero R.N. (23:39 12/04/2016)] [Electronically signed by Wilson Dang MD (20:51 12/05/2016)] [Electronically locked/signed by Chikis Carrero R.N. (23:39 12/04/2016)]
--- NOTE | 2016-12-04 23:23 | ED CLINICAL REPORT ---
Clinical Report - Physicians/Mid Levels [facility] [address] [place] [address] 12/04/2016 21:58 [id number] Time Seen: 22:01 Dec 04 2016. Arrived- By ambulance. Historian- patient and EMS personnel. HISTORY OF PRESENT ILLNESS Location of injuries- right ankle (vascath tip fell off.). Chief Complaint: INJURY TO RIGHT LOWER EXTREMITY (ANKLE) lost vascath tip and now bleeding. The injury occurred just prior to arrival. Fell while standing and landed on the ground; slipped (After taking xanax.). Occurred at home. The patient complains of mild pain. No blow to the head, neck pain or loss of consciousness. REVIEW OF SYSTEMS The patient complains of pain on weight bearing. No chest pain, difficulty breathing, weakness, headache or laceration. No fever. All systems otherwise negative, except as recorded above. PAST HISTORY See nurses notes. Drug Poisoning. Palpitations. Hyponatremia. Hypermagnesemia. Paroxysmal Supraventricular Tachycardia. Anxiety Reaction. Kidney failure. Substance Abuse. Hyperglycemia. Hyperkalemia. Renal Failure. Hematuria. Tension-Type Headache. Chronic Headache. Abscess. Renal Insufficiency. Cellulitis. Atypical Chest Pain. Gastroparesis. Contusion. Fall. Tetanus Status. Headache. Migraine Headache. Immunizations. Gastroesophageal Reflux. Narcotic Withdrawal. LNMP - Last Normal Menstrual Period. UTI - Urinary Tract Infection. Vomiting. Abdominal Pain. Diabetes Mellitus. Hypertension. ADDITIONAL SURGERIES: Ankle. CABG x3. Incision and drainage of abscess. Oophorectomy. Shoulder Surgery. Sinus Surgery. Medications: Albuterol Sulfate Inhalation. ALPRAZolam Oral. Aspirin Low Dose Oral. Ativan Oral 1 mg, 4x a day (PRN migraines). Atorvastatin Calcium Oral. B Complete Oral. Combivent Respimat Inhalation. Docusate Sodium Oral 240 mg, daily (2 bottles from 11-18-15; 12-17-15). Ergocalciferol Oral. FerrouSul Oral. Insulin Regular Human Injection sliding scale 2x/day. Lantus Subcutaneous 20 units , at bedtime. Levothyroxine Sodium Oral. LORazepam Oral. Medroxyprogesterone Acetate Intramuscular. Methadone HCl Oral 125mg daily taken at 0900 . Metoprolol Succinate ER Oral. Senna Laxative Oral 1-2 tabs, daily (2 bottles 11-18-15; 12-17-15). Sennosides Oral. Sevelamer Carbonate Oral. Simvastatin Oral 40 mg, daily (1 bottle dated 11-19-15). Vit d 1000 units, daily (3 bottles 16; 12-17-15; 01-17-16). Allergies: Augmentin. Codeine. Compazine. Darvocet. Inapsine. Phenergan. (muscles twitch) Reglan. Toradol. Tramadol. Vistril. Zofran. (headache). SOCIAL HISTORY Never smoker. History of drug use: marijuana. No alcohol use. ADDITIONAL NOTES The nursing notes have been reviewed. PHYSICAL EXAM Vital Signs: 12/04/2016 22:02 BP: 96/55. HR: 81. RR: 20. O2 saturation: 97%. Temp: 98.4 F. Pain level now: 0/10. Appearance: Lethargic. She is lethargic, is cooperative and is oriented, well hydrated and well nourished. She appears comfortable and relaxed and shows no apparent trauma. No acute distress. (appears under the influence of xanax.). Head: Head non-tender. No swelling of head. Eyes: Pupils equal, round and reactive to light. (lateral gaze nystagmus.). ENT: Pharynx normal. Neck: Non-tender. CVS: Heart sounds normal. Pulses normal. Respiratory: Breath sounds normal. Chest nontender. (Central vascath over the right chest with missing catheter tip. EMS taped over the tip to stop bleeding.). Abdomen: Nontender. Skin: Skin intact. Skin warm. Extremities: Right ankle: mild tenderness, moderate swelling and medium sized ecchymosis localized to the lateral malleolus. Limited ROM. Neurovascular intact distally. No ligamentous laxity present. No joint effusion. Neuro: Oriented X 3. Mildly altered mental status: lethargic. Eyes open spontaneously. Best verbal response: oriented X 3. Best motor response: obeys commands. No motor deficit. No sensory deficit. LABS, X-RAYS, AND EKG Rt Ankle X-ray: No fracture. (Surgical changes. No acute findings.). Views: 3 view ankle series. Technique: good. The X-rays were independently viewed by me and interpreted contemporaneously by me. Prior films were not available for comparison. PROGRESS AND PROCEDURES Course of Care: Pt lost catheter tip replaced and catheter flushed with good flow. Pt is under the influence of sedatives. She admits to taking xanax and RN found fresh track zavala on the feet. Pt observed to make sure she did not progress into an overdose situation. Patient is stable. 23:20 12/04/16. Mother called to pick her up but will not answer the phone. Pt lives with her Mother. Patient/family counseled. Disposition: Discharged. Condition: stable. CLINICAL IMPRESSION Fall on same level by stumbling (due to xanax intoxication). Sprain of the talofibular ligament of the left ankle. Xanax intoxication Lost catheter tip with minor blood loss. INSTRUCTIONS Apply ice for 15-20 minutes three times a day for one days. You may walk and bear weight as tolerated. Your Current Medications: CONTINUE TAKING THE FOLLOWING MEDICATIONS: Albuterol Sulfate Inhalation. ALPRAZolam Oral. Aspirin Low Dose Oral. Ativan Oral : 1 mg 4x a day, PRN migraines. Atorvastatin Calcium Oral. B Complete Oral. Combivent Respimat Inhalation. Docusate Sodium Oral : 240 mg daily, 2 bottles from 11-18-15; 12-17-15. Ergocalciferol Oral. FerrouSul Oral. Insulin Regular Human Injection : sliding scale 2x/day. Lantus Subcutaneous : 20 units at bedtime. Levothyroxine Sodium Oral. LORazepam Oral. Medroxyprogesterone Acetate Intramuscular. Methadone HCl Oral : 125mg daily taken at 0900. Metoprolol Succinate ER Oral. Senna Laxative Oral : 1-2 tabs daily, 2 bottles 11-18-15; 12-17-15. Sennosides Oral. Sevelamer Carbonate Oral. Simvastatin Oral : 40 mg daily, 1 bottle dated 11-19-15. Vit d* : 1000 units daily, 3 bottles 11-18; 12-17-15; 01-17-16. Follow-up: Follow up with your doctor in three days. Call for an appointment. Understanding of the discharge instructions verbalized by patient. (Electronically signed by Wilson Dang MD 12/05/2016 20:51)
--- NOTE | 2016-12-04 23:23 | ED ORDER SUMMARY ---
..... Patient: ADI RICO OrderSheet [facility] VisitID: [id number] [place] [address] 46y, F Registration Date/Time: 12/04/2016 ORDER SHEET Weight: 68.0 kg (stated) Allergies: Augmentin, Codeine, Compazine, Darvocet, Inapsine, Phenergan, Reglan, Toradol, Tramadol, Vistril, Zofran GENERAL ORDERS: Ankle 3 or 4V Right Urgent (22:17 12/04/2016 Ashley DALAL) (Ack 22:20 AMcQuoid ER Tech1) (22:28 AMcQuoid ER Tech1) MEDICATION ORDERS: IV FLUIDS: ORDER SHEET NOTES: [Electronically signed by Chikis Carrero R.N. (23:39 12/04/2016)] [Electronically signed by Wilson Dang MD (20:51 12/05/2016)] [Electronically locked/signed by Chikis Carrero R.N. (23:39 12/04/2016)]
--- NOTE | 2016-12-04 23:23 | ED NURSING NOTES ---
Clinical Report - Nurses [facility] [address] [place] [address] 12/04/2016 21:58 Patient: ADI RICO TRIAGE Triage time 22:Dec 04 2016. Acuity: LEVEL 3. Chief Complaint: FALL. SEPSIS SCREEN: Sepsis Screen: negative. Negative (no infection suspected/documented). ROSE COMA SCORE: Parnell Coma Scale: 15- eyes open spontaneously (4); best verbal response- oriented x 4 (5); best motor response- obeys commands (6). --22:08 Sylvia Sutton 22:02 12/04/16. BP: 96/55. HR: 81. RR: 20. O2 saturation: 97% on room air. Temp: 98.4 F (oral). Pain level now: 0/10. --22:08 Sylvia Sutton. Weight: 68 kg stated. Height/Length: 66 inches Per Patient. BMI: 24.2. --22:05 Sylvia Sutton. Medications Albuterol Sulfate Inhalation. ALPRAZolam Oral. Aspirin Low Dose Oral. Ativan Oral 1 mg, 4x a day (PRN migraines). Atorvastatin Calcium Oral. B Complete Oral. Combivent Respimat Inhalation. Docusate Sodium Oral 240 mg, daily (2 bottles from 11-18-15; 12-17-15). Ergocalciferol Oral. FerrouSul Oral. Insulin Regular Human Injection sliding scale 2x/day. Lantus Subcutaneous 20 units , at bedtime. Levothyroxine Sodium Oral. LORazepam Oral. Medroxyprogesterone Acetate Intramuscular. Methadone HCl Oral 125mg daily taken at 0900 . Metoprolol Succinate ER Oral. Senna Laxative Oral 1-2 tabs, daily (2 bottles 11-18-15; 12-17-15). Sennosides Oral. Sevelamer Carbonate Oral. Simvastatin Oral 40 mg, daily (1 bottle dated 11-19-15). Vit d 1000 units, daily (3 bottles 11-18; 12-17-15; 8-14-16). --22:07 Sylvia Sutton. Allergies Augmentin. Codeine. Compazine. Darvocet. Inapsine. Phenergan. (muscles twitch) Reglan. Toradol. Tramadol. Vistril. Zofran. (headache) --22: Sylvia Sutton. Medication/allergy information source: the patient and EMS. --22:08 Sylvia Sutton. History Arrived by EMS. Historian: EMS and patient. Unaccompanied. This occurred just prior to arrival. Occurred at home. ( Patient family reports that the patient took xanax and had a fall. They report that when she fell she damaged her arterial/venous dialysis port. She began bleeding out of the venous port. EMS reports she lost about 1/3 cup of blood. Patient was reportedly falling asleep during transport). She has had altered mental status reported by EMS. Slow to respond. No loss of consciousness. 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 BP: 118/66. PAST MEDICAL HX: Immunizations: up-to-date. Uses depo injections. SOCIAL HX: Never smoker. History of drug use: marijuana. No alcohol use. No infectious disease exposure. ABUSE ASSESSMENT: No report of abuse. NUTRITIONAL RISK ASSESSMENT: The nutritional risk assessment revealed no deficiencies. FUNCTIONAL ASSESSMENT: Functional assessment: no impairments noted. LEARNING NEEDS ASSESSMENT: The learning needs assessment revealed no barriers. FALL RISK ASSESSMENT: Fall risk assessment completed. Risk factors identified include patient history of fall. Fall interventions initiated. Patient placed on stretcher. Side rails up x2. Brakes on Bed in low position. Patient visible from nurses' station. Call light in reach of patient. Instructed not to get up without assistance. SKIN INTEGRITY ASSESSMENT: Skin integrity risk assessment completed. No skin integrity risk identified. --22:08 HermanSylvia gates. PROBLEMS: Drug Poisoning. Palpitations. Hyponatremia. Hypermagnesemia. Paroxysmal Supraventricular Tachycardia. Anxiety Reaction. Kidney failure. Substance Abuse. Hyperglycemia. Hyperkalemia. Renal Failure. Hematuria. Tension-Type Headache. Chronic Headache. Abscess. Renal Insufficiency. Cellulitis. Atypical Chest Pain. Gastroparesis. Contusion. Fall. Tetanus Status. Headache. Migraine Headache. Immunizations. Gastroesophageal Reflux. Narcotic Withdrawal. LNMP - Last Normal Menstrual Period. UTI - Urinary Tract Infection. Vomiting. Abdominal Pain. Diabetes Mellitus. Hypertension. --22: Sylvia Sutton. ADDITIONAL SURGERIES: Ankle. CABG x3. Incision and drainage of abscess. Oophorectomy. Shoulder Surgery. Sinus Surgery. --22: Sylvia Sutton. Interventions ID band on patient. To room. --22: Sylvia Sutton. PHYSICAL ASSESSMENT To room via stretcher. Patient gowned. GENERAL / NEURO / PSYCH: Oriented X 4. She has slurred speech. RESPIRATORY: Respirations not labored. CVS: Normal heart rate and rhythm. GI / : Abdomen soft. EXTREMITIES: Right posterior ankle: swelling and medial ankle: swelling and ecchymosis. SKIN: Skin is warm and dry. --22:10 Sylvia Sutton. NURSING PROGRESS NOTES 22:11 12/04/16. Pulse oximeter and NIBP monitor placed on patient; monitor alarms on. Patient gowned. Warming measures: blanket applied. Reassurance given to the patient. Two patient identifiers checked. Call light placed in reach. Side rails up x 1. Bed placed in lowest position. Brakes of bed on. Patient ready for evaluation- chart flagged and ED physician notified. ( Bleeding from port stopped, new caps placed and lines flushed without resistance. Provider at bedside with patient. Patient cleaned of blood. Patient ankle swollen and bruised, patient reports this is baseline.). --22:11 Sylvia Sutton 22:24 Portable X-ray in progress. --22:24 McQuoid, Charito, ER Tech1 The patient reports no complaints and she is resting quietly and sleeping. Overall patient status is the same- she states feels the same. ( pt awakens to verbal stimuli, VSS, no distress at this time, pt very somnolent RR even and unlabored at 18. will continue to monitor). GENERAL / NEURO / PSYCH: Alert. RESPIRATORY: No respiratory distress. CVS: Capillary refill less than 2 seconds. GI / : Abdomen nontender. EXTREMITIES: Neuro-vascular status intact to the extremity. Two patient identifiers checked. Call light placed in reach. Side rails up x 2. Bed placed in lowest position. Brakes of bed on. --22:55 Chikis Carrero, RBerenice 22:52 12/04/16. BP: 110/57 taken on the left arm, while lying. HR: 73 (regular and normal rate). RR: 18 (regular and unlabored). O2 saturation: 98% on room air. Temp: deferred. Pain level now: 0/10. --22:55 Chikis Carrero R.N. DISPOSITION / DISCHARGE Departure time: 2331. Condition at departure: improved and stable. ( pt ambulated out of department without gait disturbance with parent. pt A&Ox4). No learning barriers present. Discharge instructions provided and reviewed with the patient and family. She has no activity restrictions. Patient and parent verbalized understanding. Written instructions provided in Croatian. No medication instructions, treatment instructions or referrals given to the patient. The patient was discharged home and accompanied by parent. She left the Emergency Department ambulatory and via private vehicle. Parent driving. --23:38 Chikis Carrero R.N. 23:36 12/04/16. BP: 100/60 taken on the left arm, while lying. HR: 74 (regular and normal rate). RR: 18 (regular and unlabored). O2 saturation: 100% on room air. Temp: deferred. Pain level now: 0/10. --23:38 Chikis Carrero R.N. Locked/Released at 12/04/2016 23:39 by Chikis Carrero R.N.
--- NOTE | 2016-12-04 23:32 | DIAGNOSTIC IMAGING REPORT ---
PROCEDURE: XR ANKLE 3 OR 4 VIEWS - RIGHT INDICATION: TRAUMA/INJURY TECHNIQUE: Four views. COMPARISON: None. FINDINGS: Resection of the distal fibula. Ankle joint arthrodesis with two screws. There is no fracture. Mild soft tissue swelling. Surgical changes of the third fourth metatarsals. IMPRESSION: 1. Soft tissue swelling around the ankle 2. Ankle arthrodesis and resection of the distal right fibula
--- NOTE | 2016-12-05 20:51 | ED MAR SUMMARY ---
..... Medication Administration Record [facility] [address] [place] [address] Patient: ADI RICO Visit ID: [id number] 46y, F Weight: 68.0 kg Height/Length: 66 in BMI: 24.2 ALLERGIES: Augmentin, Codeine, Compazine, Darvocet, Inapsine, Phenergan, Reglan, Toradol, Tramadol, Vistril, Zofran
--- NOTE | 2016-12-05 20:51 | ED DISCHARGE INSTRUCTIONS ---
Patient: ADI RICO General Instructions [facility] VisitID: [id number] [place] [address] 46y, F Registration Date/Time: 12/04/2016 Fall on same level by stumbling (due to xanax intoxication). Sprain of the talofibular ligament of the left ankle. Xanax intoxication Lost catheter tip with minor blood loss. INSTRUCTIONS Apply ice for 15-20 minutes three times a day for one days. You may walk and bear weight as tolerated. Your Current Medications: CONTINUE TAKING THE FOLLOWING MEDICATIONS: Albuterol Sulfate Inhalation. ALPRAZolam Oral. Aspirin Low Dose Oral. Ativan Oral : 1 mg 4x a day, PRN migraines. Atorvastatin Calcium Oral. B Complete Oral. Combivent Respimat Inhalation. Docusate Sodium Oral : 240 mg daily, 2 bottles from 11-18-15; 12-17-15. Ergocalciferol Oral. FerrouSul Oral. Insulin Regular Human Injection : sliding scale 2x/day. Lantus Subcutaneous : 20 units at bedtime. Levothyroxine Sodium Oral. LORazepam Oral. Medroxyprogesterone Acetate Intramuscular. Methadone HCl Oral : 125mg daily taken at 0900. Metoprolol Succinate ER Oral. Senna Laxative Oral : 1-2 tabs daily, 2 bottles 11-18-15; 12-17-15. Sennosides Oral. Sevelamer Carbonate Oral. Simvastatin Oral : 40 mg daily, 1 bottle dated 11-19-15. Vit d* : 1000 units daily, 3 bottles 11-18; 12-17-15; 01-17-16. Follow-up: Follow up with your doctor in three days. Call for an appointment. Understanding of the discharge instructions verbalized by patient. ADDITIONAL INFORMATION Mechanical Fall You have had a fall today. It appears that the cause is mechanical. That means that you slipped, tripped or lost your balance. If your fall had been due to fainting or a seizure, further tests would be required. Home Care: Rest today and resume your normal activities when you are feeling back to normal. If you were injured during the fall, follow the advice from your doctor regarding care of your injury. You may use acetaminophen (Tylenol) or ibuprofen (Motrin, Advil) to control pain, unless another pain medicine was prescribed. [NOTE: If you have chronic liver or kidney disease or ever had a stomach ulcer or GI bleeding, talk with your doctor before using these medicines.] Fall Prevention: Was there anything that caused your fall that can be fixed, removed, or replaced? Make your home safe by keeping walkways clear of objects you may trip over. Use non-slip pads under rugs. Do not walk in poorly lit areas. Do not stand on chairs or wobbly ladders. Use caution when reaching overhead or looking upward. This position can cause a loss of balance. Be sure your shoes fit properly, have non-slip bottoms and are in good condition. Be cautious when going up and down curbs, and walking on uneven sidewalks. If your balance is poor, consider using a cane or walker. Stay as active as you can. Balance, flexibility, strength, and endurance all come from exercise. They all play a role in preventing falls. Follow Up with your doctor or as advised by our staff. Get Prompt Medical Attention if any of the following occur: Repeated mechanical falls, or unexplained falls Dizziness, fainting or seizure Severe headache Chest pain or shortness of breath Palpitations (very rapid or very slow or irregular heartbeat) Blood in vomit, stools (black or red color) Weakness of an arm or leg or one side of the face Difficulty with speech or vision Sprain, Ankle,With X-Ray A sprain is an injury to the ligaments or capsule that holds a joint together. There are no broken bones. Most sprains take from four to six weeks to heal. If the ligament is completely torn (severe sprain), it can take several months to recover. Mild to moderate sprains may be treated with an elastic wrap or an in-shoe splint to provide support and prevent re-injury. A mild sprain may not require any additional support. A severe sprain may require surgery to repair. Home care The following guidelines will help you care for your injury at home: Stay off the injured leg as much as possible until you can walk on it without pain. If you have a lot of pain with walking, crutches or a walker may be prescribed. (These can be rented or purchased at many pharmacies and surgical or orthopedic supply stores). Follow your doctor's advice regarding when to begin bearing weight on that leg. Keep your leg elevated to reduce pain and swelling. When sleeping, place a pillow under the injured leg. When sitting, support the injured leg so it is level with your waist. This is very important during the first 48 hours. Apply an ice pack (ice cubes in a plastic bag, wrapped in a towel) over the injured area for 20 minutes every 12 hours the first day. You can place the ice pack directly over the splint/cast. If you were given a boot, open it to apply the ice pack. Continue with ice packs 34 times a day for the next two days, then as needed for the relief of pain and swelling. You may use acetaminophen or ibuprofen to control pain, unless another pain medicine was prescribed. If you have chronic liver or kidney disease or ever had a stomach ulcer or GI bleeding, talk with your doctor before using these medicines. You may return to sports after healing, when you can run without pain. A sprained ankle is at risk for re-injury during the first six weeks. During that time, protect your ankle with an in-shoe splint that prevents tilting of your ankle from side to side. This is very important if you do active work or play sports during that time. Follow-up care Any X-rays you had today dont show any broken bones, breaks, or fractures. Sometimes fractures dont show up on the first X-ray. Bruises and sprains can sometimes hurt as much as a fracture. These injuries can take time to heal completely. If your symptoms dont improve or they get worse, talk with your doctor. You may need a repeat X-ray. When to seek medical care Get prompt medical attention if any of the following occur: The plaster cast or splint gets wet or soft The fiberglass cast or splint gets wet and does not dry for 24 hours Pain or swelling increases, or redness appears Toes become cold, blue, numb or tingly Re-injure your ankle You have been given the following additional information: Fall, Mechanical Sprain, Ankle, With X-Ray You may walk and bear weight as tolerated. (Electronically signed by Wilson Dang MD 12/05/2016 20:51)
--- NOTE | 2016-12-05 20:51 | ED MED RECONCILIATION SUMMARY ---
Patient: ADI RICO Medication Reconciliation Report [facility] VisitID: [id number] [place] [address] 46y, F Registration Date/Time: 12/04/2016 Weight: 68.0 kg Height/Length: 66 in. BMI: 24.2 ALLERGIES: Augmentin, Codeine, Compazine, Darvocet, Inapsine, Phenergan, Reglan, Toradol, Tramadol, Vistril, Zofran The patient's Home Medications are listed below: CONTINUE TAKING THE FOLLOWING MEDICATIONS: Albuterol Sulfate Inhalation ALPRAZolam Oral Aspirin Low Dose Oral Ativan Oral 1 mg, 4x a day, PRN migraines Atorvastatin Calcium Oral B Complete Oral Combivent Respimat Inhalation Docusate Sodium Oral 240 mg, daily, 2 bottles from 11-18-15; 12-17-15 Ergocalciferol Oral FerrouSul Oral Insulin Regular Human Injection sliding scale 2x/day Lantus Subcutaneous 20 units , at bedtime Levothyroxine Sodium Oral LORazepam Oral Medroxyprogesterone Acetate Intramuscular Methadone HCl Oral 125mg daily taken at 0900 Metoprolol Succinate ER Oral Senna Laxative Oral 1-2 tabs, daily, 2 bottles 11-18-15; 12-17-15 Sennosides Oral Sevelamer Carbonate Oral Simvastatin Oral 40 mg, daily, 1 bottle dated 11-19-15 Vit d 1000 units, daily, 3 bottles 11-18; 12-17-15; 01-17-16 The source(s) of the original Home Medication information: patient EMS The following Medications were given to the patient in the Emergency Department: None. The following Medications were prescribed to the patient: None.
--- NOTE | 2016-12-05 20:51 | ED MAR SUMMARY ---
..... Medication Administration Record [facility] [address] [place] [address] Patient: ADI RICO Visit ID: [id number] 46y, F Weight: 68.0 kg Height/Length: 66 in BMI: 24.2 ALLERGIES: Augmentin, Codeine, Compazine, Darvocet, Inapsine, Phenergan, Reglan, Toradol, Tramadol, Vistril, Zofran
--- NOTE | 2016-12-05 20:51 | ED MED RECONCILIATION SUMMARY ---
Patient: ADI RICO Medication Reconciliation Report [facility] VisitID: [id number] [place] [address] 46y, F Registration Date/Time: 12/04/2016 Weight: 68.0 kg Height/Length: 66 in. BMI: 24.2 ALLERGIES: Augmentin, Codeine, Compazine, Darvocet, Inapsine, Phenergan, Reglan, Toradol, Tramadol, Vistril, Zofran The patient's Home Medications are listed below: CONTINUE TAKING THE FOLLOWING MEDICATIONS: Albuterol Sulfate Inhalation ALPRAZolam Oral Aspirin Low Dose Oral Ativan Oral 1 mg, 4x a day, PRN migraines Atorvastatin Calcium Oral B Complete Oral Combivent Respimat Inhalation Docusate Sodium Oral 240 mg, daily, 2 bottles from 11-18-15; 12-17-15 Ergocalciferol Oral FerrouSul Oral Insulin Regular Human Injection sliding scale 2x/day Lantus Subcutaneous 20 units , at bedtime Levothyroxine Sodium Oral LORazepam Oral Medroxyprogesterone Acetate Intramuscular Methadone HCl Oral 125mg daily taken at 0900 Metoprolol Succinate ER Oral Senna Laxative Oral 1-2 tabs, daily, 2 bottles 11-18-15; 12-17-15 Sennosides Oral Sevelamer Carbonate Oral Simvastatin Oral 40 mg, daily, 1 bottle dated 11-19-15 Vit d 1000 units, daily, 3 bottles 11-18; 12-17-15; 01-17-16 The source(s) of the original Home Medication information: patient EMS The following Medications were given to the patient in the Emergency Department: None. The following Medications were prescribed to the patient: None.
== END 2016-12-04 23:32 | disposition home or self-care (01) ==
LOC: ED SRH 21:59
DX: S93.492A Sprain of other ligament of left ankle, initial encounter (principal); T42.4X1A Poisoning by benzodiazepines, accidental (unintentional), initial encounter; F13.129 Sedative, hypnotic or anxiolytic abuse with intoxication, unspecified; W01.0XXA Fall on same level from slipping, tripping and stumbling without subsequent striking against object, initial encounter; Y92.009 Unspecified place in unspecified non-institutional (private) residence as the place of occurrence of the external cause; T82.838A Hemorrhage due to vascular prosthetic devices, implants and grafts, initial encounter; I10 Essential (primary) hypertension; E11.9 Type 2 diabetes mellitus without complications; Z45.2 Encounter for adjustment and management of vascular access device